=== PATIENT | female | born 1935 ===

== ENCOUNTER 2017-01-15 14:29 | Inpatient (IN) | payer MEDICAID, OTHER ==
--- NOTE | 2017-01-15 15:16 | C.PDOC ---
History Of Present Illness 81F c/o generalized weakness and pain in her whole body including chest for the last week. today she started feeling nauseated. subjective fever. no cough or dysuria or vomiting or diarrhea. took tylenol last this am 10am. notes she had endoscopy to "check for cancer" about 3-4 weeks ago. Time Seen by Provider: 01/15/17 15:07 Chief Complaint (Nursing): Weakness/Neurological Deficit Past Medical History Vital Signs: Last Vital Signs Temp 98.3 F 01/18/17 04:00 Pulse 111 H 01/18/17 04:00 Resp 20 01/18/17 04:00 BP 108/73 01/18/17 04:00 Pulse Ox 97 01/17/17 23:25 - Medical History PMH: Anemia, Arthritis, Cardia Arrhythmia, Gastritis, Osteoporosis Denies: Chronic Kidney Disease Family History: States: Other Other Family History: nc - Social History Hx Alcohol Use: No Hx Substance Use: No - Immunization History Hx Tetanus Toxoid Vaccination: No Hx Influenza Vaccination: No Hx Pneumococcal Vaccination: No Review Of Systems Except As Marked, All Systems Reviewed And Found Negative. Constitutional: Positive for: Fever, Weakness, Malaise Cardiovascular: Positive for: Chest Pain. Negative for: Edema Respiratory: Negative for: Cough, Shortness of Breath, Hemoptysis Gastrointestinal: Positive for: Nausea. Negative for: Vomiting, Abdominal Pain , Diarrhea Genitourinary: Negative for: Dysuria Neurological: Negative for: Weakness, Numbness, Headache Physical Exam - Physical Exam Appears: Non-toxic, No Acute Distress Skin: Warm, Dry Head: Atraumatic Eye(s): bilateral: PERRL Nose: No Epistaxis Oral Mucosa: Moist Neck: Supple Cardiovascular: Rhythm Regular Respiratory: No Decreased Breath Sounds, No Accessory Muscle Use, No Rales, No Rhonchi, No Wheezing Gastrointestinal/Abdominal: Soft, No Tenderness, No Distention, No Guarding, No Rebound Extremity: No Swelling Pulses: Left Radial: Normal, Right Radial: Normal Neurological/Psych: Oriented x3, Normal Motor, Normal Sensation, Other (no focal deficits) ED Course And Treatment - Laboratory Results Result Diagrams: 01/17/17 04:39 01/17/17 19:33 O2 Sat by Pulse Oximetry: 98 Disposition - Disposition Disposition: HOSPITALIZED Disposition Time: 18:06 Condition: STABLE - Clinical Impression Clinical Impression: Hyponatremia
[2017-01-15] MEDS ORDERED: Sodium Chloride 0.9% 1,000 ML IV ONE (15:30)
[2017-01-15 16:34] LABS: VENOUS BLOOD GAS BASE EXCESS -3.8 mmol/L (0.0-2.0); VENOUS BLOOD GAS PCO2 39 mmHg (40-60); VENOUS BLOOD PH 7.35 (7.32-7.43)
[2017-01-15 16:39] LABS: CHLORIDE 97 mmol/L (98-107)
[2017-01-15 16:40] LABS: POTASSIUM 4.9 mmol/L (3.6-5.2); SODIUM 125 mmol/L (132-148)
[2017-01-15 16:42] LABS: ALB/GLOB RATIO 0.5 (1.0-2.1); BILIRUBIN,TOTAL 0.5 mg/dL (0.2-1.3); CARBON DIOXIDE 18 mmol/L (22-30); GFR AFRICAN-AMERICAN > 60; TOTAL PROTEIN 7.7 g/dL (6.3-8.3)
[2017-01-15 16:43] LABS: ALKALINE PHOSPHATASE 79 U/L (38-126); ALT/SGPT 30 U/L (9-52); AST/SGOT 66 U/L (14-36); BLOOD UREA NITROGEN 19 mg/dL (7-17); GLUCOSE,RANDOM 74 mg/dL (65-105)
[2017-01-15 16:49] LABS: EOS # 0.1 K/uL (0.0-0.7); LYMPH # 0.8 K/uL (1.0-4.3); MEAN CORPUSCULAR HGB CONC 33.7 g/dL (33.0-37.0); RED CELL DISTRIBUTION WIDTH 17.4 % (11.5-14.5)
--- NOTE | 2017-01-15 16:54 | RAD ---
HISTORY: weak COMPARISON: No prior. TECHNIQUE: Chest PA and lateral FINDINGS: LUNGS: Reticular opacities more prominent at the lung bases and in the upper lobe lobes right more than left. Findings are nonspecific and the differential diagnosis includes interstitial lung disease sequela of prior infection or inflammatory process. PLEURA: No significant pleural effusion identified. No pneumothorax apparent. CARDIOVASCULAR: Normal. OSSEOUS STRUCTURES: No significant abnormalities. VISUALIZED UPPER ABDOMEN: Normal. OTHER FINDINGS: None. IMPRESSION: Nonspecific diffuse reticular opacities in the lungs more prominent at the lung bases and in the upper lobes right more than left. Mild hyperinflation of the lungs. Correlate clinically for COPD.
[2017-01-15 17:20] LABS: RBC URINE 62 /hpf (0-3); URINE BACTERIA RARE (<OCC); URINE BILIRUBIN NEGATIVE (NEGATIVE); URINE BLOOD 3+ (NEGATIVE); URINE COLOR Yellow (YELLOW); URINE GLUCOSE (UA) NORMAL (Normal); URINE KETONE NEGATIVE (NEGATIVE); URINE LEUKOCYTE ESTERASE NEG Leu/uL (Negative); URINE PROTEIN 1+ mg/dL (NEGATIVE); URINE UROBILINOGEN NORMAL mg/dL (0.2-1.0); WBC URINE 6 /hpf (0-5)
[2017-01-15 17:48] LABS: BASO % 0.6 % (0.0-2.0); EOS % 1.4 % (0.0-4.0); HEMATOCRIT 26.9 % (34.0-47.0); LYMPH % 20.6 % (20.0-40.0); MEAN CELL VOLUME 80.6 fL (81.0-99.0); MEAN CORPUSCULAR HEMOGLOBIN 27.2 pg (27.0-31.0); MEAN PLATELET VOLUME 8.1 fL (7.2-11.7); MONO # 0.4 K/uL (0.0-0.8); MONO % 11.3 % (0.0-10.0); NRBC % 1.3 % (0.0-2.0); PLATELET COUNT 118 K/uL (130-400); WHITE BLOOD COUNT 3.8 K/uL (4.8-10.8)
--- NOTE | 2017-01-15 23:00 | CP.PCM.HP ---
Addendum entered and electronically signed by Sylvain Mg 01/16/17 02:00: Assessment & Plan (1) Hyponatremia Assessment and Plan: Na on admission 125; likely hypotonic hyponatremia due to polydipsia vs renal losses vs siadh hypovolemic hyponatremia possible due to dry oral mucosa, eyes sunken, BP 97/60 , NC 106 euvolemic possible due to excessive water intake NS 1 L given in ED F/U serum and urine osmolality F/U urine sodium, urine potassium, urine chloride strict In's/Out's daily weight TSH wnl Status: Acute (2) Rheumatoid arthritis Assessment and Plan: con't home med tylenol 650mg po bid outpatient management Status: Acute (3) Anemia Assessment and Plan: Hgb 9.1 on admission, stable from previous admission; non-bleeding internal hemorrhoids found on colonoscopy on 12/26/16 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 Mild hyperinflation of the lungs. (5) Prophylactic measure Assessment and Plan: GI: protonix 40mg po daily DVT: heparin 5000u sc q8 Diet: regular diet con't home meds iron and B12 Status: Acute Original Note: <Sylvain Mg - Last Filed: 01/16/17 01:17> History of Present Illness - History of Present Illness History of Present Illness: 81 yo F with a PMHx of Rheumatoid Arthritis presented to the ED for fatigue and weakness for the past 1 week. At baseline the patient is able to ambulate however in the past week she has felt too weak to get out of bed and when she does, she feels imbalanced. Associated symptoms include nausea and dry mouth. She denies vomiting or diarrhea. She says she routinely drinks a lot of water and currently drinks 5 12oz cups of water every day. She weighs 86 lbs. At baseline she urinates about 8-9x a day which she attributes to her water intake. She denied all other prompts on review of systems. She says she has a good appetite but admits to a 6lb weight loss in the last 3 weeks. 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 absent: Chills, Fever , Frequent Falls, Headache - EENT Eyes: absent: Change in Vision Ears: absent: Ear Pain Nose/Mouth/Throat: absent: Nasal Congestion - Cardiovascular Cardiovascular: absent: Chest Pain, Diaphoresis, Palpitations - Respiratory Respiratory: absent: Cough, Dyspnea, Wheezing - Gastrointestinal Gastrointestinal: Constipation, Nausea. absent: Abdominal Pain, Diarrhea, Vomiting - Genitourinary Genitourinary: absent: Change in Urinary Stream, Difficulty Urinating, Dysuria, Flank Pain, Urinary Frequency - Neurological Neurological: absent: Numbness, Focal Weakness, Frequent Falls, Headaches, Syncope, Tingling - Endocrine Endocrine: Fatigue Past Patient History - Past Medical History & Family History Past Medical History?: Yes - Past Social History Smoking Status: Never Smoked - CARDIAC Hx Cardiac Disorders: Yes Hx Cardia Arrhythmia: Yes - PULMONARY Hx Respiratory Disorders: No - NEUROLOGICAL Hx Neurological Disorder: No Hx Syncope: Yes - HEENT Hx HEENT Problems: No - RENAL Hx Chronic Kidney Disease: No - ENDOCRINE/METABOLIC Hx Endocrine Disorders: No - HEMATOLOGICAL/ONCOLOGICAL Hx Anemia: Yes - INTEGUMENTARY Hx Dermatological Problems: No - MUSCULOSKELETAL/RHEUMATOLOGICAL Hx Arthritis: Yes Hx Falls: Yes Hx Osteoporosis: Yes - GASTROINTESTINAL Hx Gastrointestinal Disorders: Yes Hx Gastritis: Yes - GENITOURINARY/GYNECOLOGICAL Hx Genitourinary Disorders: No - PSYCHIATRIC Hx Psychophysiologic Disorder: No Hx Substance Use: No - SURGICAL HISTORY Hx Surgeries: Yes Other/Comment: EXC. LESION OF TOUGUE - ANESTHESIA Hx Anesthesia: Yes Hx Anesthesia Reactions: No Hx Malignant Hyperthermia: No Has any member of the family had a problem w/ anesthesia?: No Meds Allergies/Adverse Reactions: Allergies Allergy/AdvReac Type Severity Reaction Status Date / Time pineapple Allergy ITCHING Verified 01/15/17 14:38 shrimp Allergy ITCHING Verified 01/15/17 14:38 Physical Exam - Constitutional Appears: Well, Non-toxic, No Acute Distress Additional comments: lethargic - Head Exam Head Exam: ATRAUMATIC, NORMAL INSPECTION - Eye Exam Eye Exam: EOMI Pupil Exam: PERRL Additional comments: eyes were sunken - ENT Exam ENT Exam: Mucous Membranes Dry. absent: Mucous Membranes Moist - Neck Exam Neck exam: Positive for: Normal Inspection. Negative for: Lymphadenopathy - Respiratory Exam Respiratory Exam: Rales, Wheezes, NORMAL BREATHING PATTERN - Cardiovascular Exam Cardiovascular Exam: REGULAR RHYTHM, RRR, +S1, +S2. absent: Bradycardia, Tachycardia, Irregular Rhythm, Systolic Murmur - GI/Abdominal Exam GI & Abdominal Exam: Normal Bowel Sounds, Soft. absent: Distended, Firm, Organomegaly, Rebound, Tenderness - Rectal Exam Rectal Exam: Deferred - Extremities Exam Extremities exam: Positive for: normal inspection. Negative for: pedal edema, tenderness - Neurological Exam Neurological exam: Alert, CN II-XII Intact, Oriented x3 - Psychiatric Exam Psychiatric exam: Normal Affect, Normal Mood - Skin Additional comments: skin turgor slow capillary refill 2-4 seconds warm extremities Results - Vital Signs Recent Vital Signs: Last Vital Signs Temp 98.2 F 01/15/17 20:58 Pulse 98 H 01/15/17 20:58 Resp 20 01/15/17 20:58 BP 115/65 01/15/17 20:58 Pulse Ox 92 L 01/15/17 20:58 - Labs Result Diagrams: 01/15/17 16:24 01/15/17 16:24 Labs: Laboratory Results - last 24 hr 01/15/17 01/15/17 01/15/17 16:24 16:24 16:31 WBC 3.8 L RBC 3.33 L Hgb 9.1 L Hct 26.9 L MCV 80.6 L MCH 27.2 MCHC 33.7 RDW 17.4 H Plt Count 118 L MPV 8.1 Neut % (Auto) 66.1 Lymph % (Auto) 20.6 [place] % (Auto) 11.3 H Eos % (Auto) 1.4 Baso % (Auto) 0.6 Neut # 2.5 Lymph # 0.8 L [place] # 0.4 Eos # 0.1 Baso # 0.0 pO2 25 L VBG pH 7.35 VBG pCO2 39 L VBG HCO3 20.4 VBG Total CO2 22.7 VBG O2 Sat (Calc) 44.7 VBG Base Excess -3.8 L VBG Potassium 4.7 Glucose 74 Lactate 1.5 Sodium 125 L 126.0 L Potassium 4.9 Chloride 97 L 100.0 Carbon Dioxide 18 L Anion Gap 15 BUN 19 H Creatinine 0.6 L Est GFR ( Amer) > 60 Est GFR (Non-Af Amer) > 60 Random Glucose 74 Calcium 8.0 L Total Bilirubin 0.5 AST 66 H ALT 30 Alkaline Phosphatase 79 Troponin I < 0.0120 Total Protein 7.7 Albumin 2.5 L Globulin 5.2 H Albumin/Globulin Ratio 0.5 L Lipase 272 TSH 3rd Generation Venous Blood Potassium 4.7 Urine Color Urine Clarity Urine pH Ur Specific [place] Urine Protein Urine Glucose (UA) Urine Ketones Urine Blood Urine Nitrate Urine Bilirubin Urine Urobilinogen Ur Leukocyte Esterase Urine WBC (Auto) Urine RBC (Auto) Ur Squamous Epith Cells Urine Bacteria Hyaline Casts Influenza Typ A,B (EIA) 01/15/17 01/15/17 01/15/17 16:48 16:55 19:00 WBC RBC Hgb Hct MCV MCH MCHC RDW Plt Count MPV Neut % (Auto) Lymph % (Auto) [place] % (Auto) Eos % (Auto) Baso % (Auto) Neut # Lymph # [place] # Eos # Baso # pO2 VBG pH VBG pCO2 VBG HCO3 VBG Total CO2 VBG O2 Sat (Calc) VBG Base Excess VBG Potassium Glucose Lactate Sodium Potassium Chloride Carbon Dioxide Anion Gap BUN Creatinine Est GFR ( Amer) Est GFR (Non-Af Amer) Random Glucose Calcium Total Bilirubin AST ALT Alkaline Phosphatase Troponin I Total Protein Albumin Globulin Albumin/Globulin Ratio Lipase TSH 3rd Generation 2.60 Venous Blood Potassium Urine Color Yellow Urine Clarity Clear Urine pH 5.0 Ur Specific [place] 1.025 Urine Protein 1+ H Urine Glucose (UA) Normal Urine Ketones Negative Urine Blood 3+ H Urine Nitrate Negative Urine Bilirubin Negative Urine Urobilinogen Normal Ur Leukocyte Esterase Neg Urine WBC (Auto) 6 H Urine RBC (Auto) 62 H Ur Squamous Epith Cells < 1 Urine Bacteria Rare Hyaline Casts 6-10 H Influenza Typ A,B (EIA) Negative for flu a/b Assessment & Plan (1) Hyponatremia Assessment and Plan: Na on admission 125; likely hypotonic hyponatremia due to polydipsia vs renal losses vs siadh hypovolemic hyponatremia possible due to dry oral mucosa, eyes sunken, BP 97/60 , NC 106 euvolemic possible due to excessive water intake F/U serum and urine osmolality F/U urine sodium, urine potassium, urine chloride strict In's/Out's daily weight TSH wnl Status: Acute (2) Rheumatoid arthritis Assessment and Plan: con't home med tylenol 650mg po bid outpatient management Status: Acute (3) Anemia Assessment and Plan: Hgb 9.1 on admission, stable from previous admission; non-bleeding internal hemorrhoids found on colonoscopy on 12/26/16 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 F/U iron studies F/U folate, B12 verify home iron med dose and frequency Status: Acute (4) Prophylactic measure Assessment and Plan: GI: protonix 40mg po daily DVT: heparin 5000u sc q8 Diet: regular diet con't home meds iron and B12 Status: Acute <Diego Kirkland - Last Filed: 01/16/17 06:32> Results - Vital Signs Recent Vital Signs: Last Vital Signs Temp 97.6 F 01/15/17 23:20 Pulse 78 01/15/17 23:20 Resp 20 01/15/17 23:20 BP 129/78 01/15/17 23:20 Pulse Ox 99 01/15/17 23:20 - Labs Result Diagrams: 01/15/17 16:24 01/15/17 16:24 Labs: Laboratory Results - last 24 hr 01/15/17 01/15/17 01/15/17 16:24 16:24 16:31 WBC 3.8 L RBC 3.33 L Hgb 9.1 L Hct 26.9 L MCV 80.6 L MCH 27.2 MCHC 33.7 RDW 17.4 H Plt Count 118 L MPV 8.1 Neut % (Auto) 66.1 Lymph % (Auto) 20.6 [place] % (Auto) 11.3 H Eos % (Auto) 1.4 Baso % (Auto) 0.6 Neut # 2.5 Lymph # 0.8 L [place] # 0.4 Eos # 0.1 Baso # 0.0 Neutrophils % (Manual) 70 Lymphocytes % (Manual) 20 Monocytes % (Manual) 8 Eosinophils % (Manual) 2 Smudge Cells Present Platelet Estimate Decreased L Large Platelets Present Polychromasia Slight Poikilocytosis (manual Slight Anisocytosis (manual) Slight Macrocytosis (manual) Slight pO2 25 L VBG pH 7.35 VBG pCO2 39 L VBG HCO3 20.4 VBG Total CO2 22.7 VBG O2 Sat (Calc) 44.7 VBG Base Excess -3.8 L VBG Potassium 4.7 Glucose 74 Lactate 1.5 Sodium 125 L 126.0 L Potassium 4.9 Chloride 97 L 100.0 Carbon Dioxide 18 L Anion Gap 15 BUN 19 H Creatinine 0.6 L Est GFR ( Amer) > 60 Est GFR (Non-Af Amer) > 60 Random Glucose 74 Calcium 8.0 L Total Bilirubin 0.5 AST 66 H ALT 30 Alkaline Phosphatase 79 Troponin I < 0.0120 Total Protein 7.7 Albumin 2.5 L Globulin 5.2 H Albumin/Globulin Ratio 0.5 L Lipase 272 TSH 3rd Generation Venous Blood Potassium 4.7 Urine Color Urine Clarity Urine pH Ur Specific [place] Urine Protein Urine Glucose (UA) Urine Ketones Urine Blood Urine Nitrate Urine Bilirubin Urine Urobilinogen Ur Leukocyte Esterase Urine WBC (Auto) Urine RBC (Auto) Ur Squamous Epith Cells Urine Bacteria Hyaline Casts Urine Osmolality Ur Random Sodium Influenza Typ A,B (EIA) 01/15/17 01/15/17 01/15/17 16:48 16:55 17:46 WBC RBC Hgb Hct MCV MCH MCHC RDW Plt Count MPV Neut % (Auto) Lymph % (Auto) [place] % (Auto) Eos % (Auto) Baso % (Auto) Neut # Lymph # [place] # Eos # Baso # Neutrophils % (Manual) Lymphocytes % (Manual) Monocytes % (Manual) Eosinophils % (Manual) Smudge Cells Platelet Estimate Large Platelets Polychromasia Poikilocytosis (manual Anisocytosis (manual) Macrocytosis (manual) pO2 VBG pH VBG pCO2 VBG HCO3 VBG Total CO2 VBG O2 Sat (Calc) VBG Base Excess VBG Potassium Glucose Lactate Sodium Potassium Chloride Carbon Dioxide Anion Gap BUN Creatinine Est GFR ( Amer) Est GFR (Non-Af Amer) Random Glucose Calcium Total Bilirubin AST ALT Alkaline Phosphatase Troponin I Total Protein Albumin Globulin Albumin/Globulin Ratio Lipase TSH 3rd Generation Venous Blood Potassium Urine Color Yellow Urine Clarity Clear Urine pH 5.0 Ur Specific [place] 1.025 Urine Protein 1+ H Urine Glucose (UA) Normal Urine Ketones Negative Urine Blood 3+ H Urine Nitrate Negative Urine Bilirubin Negative Urine Urobilinogen Normal Ur Leukocyte Esterase Neg Urine WBC (Auto) 6 H Urine RBC (Auto) 62 H Ur Squamous Epith Cells < 1 Urine Bacteria Rare Hyaline Casts 6-10 H Urine Osmolality 288 L Ur Random Sodium 76 Influenza Typ A,B (EIA) Negative for flu a/b 01/15/17 19:00 WBC RBC Hgb Hct MCV MCH MCHC RDW Plt Count MPV Neut % (Auto) Lymph % (Auto) [place] % (Auto) Eos % (Auto) Baso % (Auto) Neut # Lymph # [place] # Eos # Baso # Neutrophils % (Manual) Lymphocytes % (Manual) Monocytes % (Manual) Eosinophils % (Manual) Smudge Cells Platelet Estimate Large Platelets Polychromasia Poikilocytosis (manual Anisocytosis (manual) Macrocytosis (manual) pO2 VBG pH VBG pCO2 VBG HCO3 VBG Total CO2 VBG O2 Sat (Calc) VBG Base Excess VBG Potassium Glucose Lactate Sodium Potassium Chloride Carbon Dioxide Anion Gap BUN Creatinine Est GFR ( Amer) Est GFR (Non-Af Amer) Random Glucose Calcium Total Bilirubin AST ALT Alkaline Phosphatase Troponin I Total Protein Albumin Globulin Albumin/Globulin Ratio Lipase TSH 3rd Generation 2.60 Venous Blood Potassium Urine Color Urine Clarity Urine pH Ur Specific [place] Urine Protein Urine Glucose (UA) Urine Ketones Urine Blood Urine Nitrate Urine Bilirubin Urine Urobilinogen Ur Leukocyte Esterase Urine WBC (Auto) Urine RBC (Auto) Ur Squamous Epith Cells Urine Bacteria Hyaline Casts Urine Osmolality Ur Random Sodium Influenza Typ A,B (EIA) Assessment & Plan - Date & Time Date: 01/16/17 (I have seen and examined the patient. I agree with the findings and plan of care as documented by Dr. Mg. Patient with hyponatremia. Check urine osmolalities and electrolytes. May need to restrict or give fluids depending on results. Also with history of rheumatoid arthritis. Symptomatic treatment. For anemia, check iron studies, B12, and folate. Similar to prior admission. Monitor for acute changes.) Time: 06:30 Attending/Attestation - Attestation I have personally seen and examined this patient.: Yes I have fully participated in the care of the patient.: Yes I have reviewed all pertinent clinical information: Yes
[2017-01-15 23:09] LABS: EOSINOPHIL 2 % (0-4); NEUTROPHIL 70 % (50-75); TOTAL CELLS COUNTED 100
[2017-01-15 23:10] LABS: LARGE PLATELETS PRESENT; SMUDGE CELLS PRESENT
[2017-01-16 07:34] LABS: IRON 35 ug/dL (37-170)
[2017-01-16 07:55] LABS: URIC ACID 3.8 mg/dL (2.2-7.5)
[2017-01-16 08:03] LABS: CORTISOL AM 12.8 ug/dL (4.46-22.7)
[2017-01-16 08:39] LABS: FOLATE 7.3 ng/mL
[2017-01-16] MEDS ORDERED: ACETAMINOPHEN PO SCH (10:00)
[2017-01-16] MEDS ORDERED: Pantoprazole 40 mg EC Tab PO SCH (10:00)
[2017-01-16 10:38] LABS: CHLORIDE 99 mmol/L (98-107); POTASSIUM 4.4 mmol/L (3.6-5.2); SODIUM 127 mmol/L (132-148)
[2017-01-16 10:40] LABS: AST/SGOT 69 U/L (14-36); BILIRUBIN,TOTAL 0.4 mg/dL (0.2-1.3); CARBON DIOXIDE 18 mmol/L (22-30); GFR AFRICAN-AMERICAN > 60; TOTAL PROTEIN 8.1 g/dL (6.3-8.3)
[2017-01-16 10:41] LABS: ALKALINE PHOSPHATASE 81 U/L (38-126); ALT/SGPT 25 U/L (9-52); BLOOD UREA NITROGEN 15 mg/dL (7-17); CALCIUM 7.9 mg/dl (8.6-10.4); GLUCOSE,RANDOM 74 mg/dL (65-105)
[2017-01-16 10:44] LABS: ALB/GLOB RATIO 0.4 (1.0-2.1)
[2017-01-16 12:15] LABS: BASO % 0.2 % (0.0-2.0); EOS % 0.8 % (0.0-4.0); HEMATOCRIT 26.3 % (34.0-47.0); LYMPH # 0.5 K/uL (1.0-4.3); LYMPH % 15.1 % (20.0-40.0); MEAN CELL VOLUME 79.8 fL (81.0-99.0); MEAN CORPUSCULAR HEMOGLOBIN 27.4 pg (27.0-31.0); MEAN CORPUSCULAR HGB CONC 34.3 g/dL (33.0-37.0); MEAN PLATELET VOLUME 7.8 fL (7.2-11.7); MONO # 0.3 K/uL (0.0-0.8); MONO % 9.3 % (0.0-10.0); NRBC % 0.2 % (0.0-2.0); RED CELL DISTRIBUTION WIDTH 17.1 % (11.5-14.5); WHITE BLOOD COUNT 3.6 K/uL (4.8-10.8)
[2017-01-16 12:29] LABS: CHLORIDE 98 mmol/L (98-107); SODIUM 125 mmol/L (132-148)
[2017-01-16 12:30] LABS: POTASSIUM 4.2 mmol/L (3.6-5.2)
[2017-01-16 12:32] LABS: ALB/GLOB RATIO 0.4 (1.0-2.1); ALKALINE PHOSPHATASE 70 U/L (38-126); ALT/SGPT 29 U/L (9-52); AST/SGOT 60 U/L (14-36); BILIRUBIN,TOTAL 0.3 mg/dL (0.2-1.3); BLOOD UREA NITROGEN 14 mg/dL (7-17); CALCIUM 7.8 mg/dl (8.6-10.4); CARBON DIOXIDE 20 mmol/L (22-30); GFR AFRICAN-AMERICAN > 60; GLUCOSE,RANDOM 92 mg/dL (65-105); TOTAL PROTEIN 7.4 g/dL (6.3-8.3)
--- NOTE | 2017-01-16 12:57 | CT ---
PROCEDURE: CT scan of the brain dated 01/16/2017 HISTORY: SIADH r/o COMPARISON: No prior study available for comparison TECHNIQUE: Axial computed tomography images were obtained through the head/brain without intravenous contrast. Radiation dose: Total exam DLP = 982.82 mGy-cm. This CT exam was performed using one or more of the following dose reduction techniques: Automated exposure control, adjustment of the mA and/or kV according to patient size, and/or use of iterative reconstruction technique. FINDINGS: HEMORRHAGE: No acute parenchymal, subarachnoid or extra-axial hemorrhage. BRAIN: Mild chronic periventricular white matter ischemic changes extend peripherally into the deep and subcortical regions bilaterally. There also appears to be some extension of these changes into the white matter tracts of both basal nuclei. Few scattered more discrete bilateral chronic appearing basal nuclei lacunar type infarcts also felt be present. Moderate generalized volume loss Mild vascular calcifications are present. Partially empty sella. VENTRICLES: No obstructive hydrocephalus. CALVARIUM: There are no acute calvarial fracture seen. PARANASAL SINUSES: Unremarkable as visualized. No significant inflammatory changes. MASTOID AIR CELLS: Unremarkable as visualized. No inflammatory changes. OTHER FINDINGS: None. IMPRESSION: No acute intracranial hemorrhage. Mild chronic white matter and basal nuclei ischemic changes. Moderate generalized volume loss partially empty sella.
--- NOTE | 2017-01-16 12:58 | CT ---
PROCEDURE: CT chest dated 01/16/2017 HISTORY: SIADH. COMPARISON: Comparison made with chest radiograph 01/15/2017. TECHNIQUE: Contiguous helical/transaxial images were obtained through the chest without intravenous contrast enhancement. Sagittal and coronal reconstructions were performed. Radiation dose (DLP): 231.84 mGy-cm. This CT exam was performed using one or more of the following dose reduction techniques: Automated exposure control, adjustment of the mA and/or kV according to patient size, and/or use of iterative reconstruction technique. . FINDINGS: LUNGS: Diffuse centrilobular emphysematous changes are present. In addition, extensive interstitial fibrosis also present with more confluent in the lower lobes ;. Superimposed infiltrates to be excluded with clinical correlation. . There also appear to be mild bilateral lower lobe cylindrical type bronchiectasis and scarring. Multiple lower lobe pneumatoceles and small to medium-sized bleb changes in the lower lung johnson. . Biapical pleural thickening and adjacent parenchymal chronic atelectasis/ scarring changes also felt be present. . There also areas of focal pleural thickening and adjacent parenchymal scarring changes. MEDIASTINUM: Heart size is within range of normal. No significant pericardial effusion. The ascending thoracic aorta measures approximately 3.15 cm and descending thoracic aorta measures approximately 2.2 cm. Pulmonary trunk measures approximately 2.78 cm. There are multiple name small nonspecific mediastinal lymph nodes. Evaluation for hilar adenopathy is somewhat limited due to the lack of circulating intravenous contrast material. Small hiatal hernia. Slight wall thickening of the distal esophagus likely due to protrusion gastric mucosa. PLEURA: No evidence of pneumothorax or significant pleural effusion BONES: Chronic appearing anterior wedge compression fractures of the T5 and T7 segments again noted minor buckling/bowing of the posterior cortical margins of each of these segments noted however no significant canal compromise. The remaining vertebral bodies otherwise exhibit normal stature. . There is slight increase kyphosis due to these compression fractures however vertebral bodies and facets otherwise normally aligned. UPPER ABDOMEN: Grossly unremarkable. OTHER FINDINGS: None. IMPRESSION: Underlying emphysema with extensive the interstitial fibrosis with more confluent opacities in the lower lung johnson. Rule out underlying infiltrates. Additionally, there appear to be bilateral lower lobe cylindrical type bronchiectatic changes. Multiple lower lobe pneumatoceles and small on to medium-sized bleb changes are present. Biapical and bibasilar pleural thickening with adjacent parenchymal scarring. Chronic anterior wedge compression deformities of the T5 and T6 segments unchanged.
--- NOTE | 2017-01-16 14:14 | CARD ---
APPROVED REPORT EKG Measurement Heart [id number] <Conclusion> Normal sinus rhythm Normal ECG
--- NOTE | 2017-01-16 15:22 | CP.PCM.PN ---
<Ivelisse Mcgee - Last Filed: 01/16/17 16:08> Subjective - Date & Time of Evaluation Date of Evaluation: 01/16/17 Time of Evaluation: 15:21 - Subjective Subjective: Internal Medicine progress note for Dr. Sigala Patient seen and examined at bedside. Patient has no complaints overnight. Patient states she has dry mouth for 8 years, dry eyes and nose. Patient states her family doctor Dr. Dejesus in [place] told her to drink more water. Patient states she goes to the bathroom a lot. Patient states she understands she's under fluid restrictions and that we are checking her labs for her sodium. Patient denies Fever. Patient admits to cough, nausea. Patient denies diarrhea. Patient states she has never smoked in her life and that she does not have a family history of cancer. Patient states her eyes are itchy, daughter states patient doesn't leave home due to pain from arthritis. Patient does not move her arms above her head very often due to difficulty movement her limbs Objective - Vital Signs/Intake and Output Vital Signs (last 24 hours): Temp Pulse Resp BP Pulse Ox 98.6 F 112 H 20 111/67 98 01/16/17 07:00 01/16/17 07:00 01/16/17 07:00 01/16/17 07:00 01/16/17 07:00 - Medications Medications: Current Medications Cyanocobalamin (Vitamin B12 100 Mcg Tab) 500 mcg PO DAILY [facility] Last Admin: 01/16/17 10:15 Dose: 500 mcg Ibuprofen (Motrin Tab) 400 mg PO Q8H PRN PRN Reason: Pain, moderate (4-7) Pantoprazole Sodium (Protonix Ec Tab) 40 mg PO DAILY [facility] Last Admin: 01/16/17 10:15 Dose: 40 mg Pneumococcal Polyvalent Vaccine (Pneumovax 23 Vaccine) 0.5 ml IM .ONCE ONE Stop: 01/17/17 10:01 - Labs Labs: 01/16/17 11:47 01/16/17 11:47 - Constitutional Appears: Non-toxic - Head Exam Head Exam: NORMAL INSPECTION - Eye Exam Eye Exam: EOMI Additional comments: periorbital itching heliotrope like rash noted on physical exam - ENT Exam ENT Exam: Mucous Membranes Moist - Neck Exam Neck Exam: Full ROM. absent: Tenderness - Respiratory Exam Respiratory Exam: Clear to Ausculation Bilateral, NORMAL BREATHING PATTERN. absent: Accessory Muscle Use, Respiratory Distress - Cardiovascular Exam Cardiovascular Exam: REGULAR RHYTHM. absent: Bradycardia, Tachycardia - GI/Abdominal Exam GI & Abdominal Exam: Soft. absent: Tenderness - Exam Exam: NORMAL INSPECTION - Extremities Exam Extremities Exam: Full ROM. absent: Pedal Edema Additional comments: splitting nails onychomycosis - Back Exam Back Exam: NORMAL INSPECTION - Neurological Exam Neurological Exam: Alert, Awake, Normal Gait - Psychiatric Exam Psychiatric exam: Normal Affect, Normal Mood - Skin Skin Exam: Dry, Intact, Normal Color, Warm Additional comments: Lentigo senilis on dorsum of hands Assessment and Plan - Assessment and Plan (Free Text) Assessment: Assessment & Plan (1) Hyponatremia Assessment and Plan: Na on admission 125; likely hypotonic hyponatremia due to polydipsia vs renal losses vs siadh hypovolemic hyponatremia possible due to dry oral mucosa, dry skin turgor euvolemic possible due to excessive water intake NS 1 L given in ED Serum Osm 275 Urine Osm 258 Urine Na 76 Strict I/Os Daily weights TSH WNL f/u BUN/Cr Monitor CMP Status: Acute (2) Rheumatoid arthritis Assessment and Plan: con't home med tylenol 650mg po bid outpatient management Status: Acute (3) Anemia Assessment and Plan: Hgb 9.1 on admission, stable from previous admission; non-bleeding internal hemorrhoids found on colonoscopy on 12/26/16 sees outpatient insole lip turner F/U iron studies F/U folate, B12 verify home iron med dose and frequency Status: Acute (4) Reticular Opacities in Lungs Assessment and Plan: bibasalar rales and wheezing on ausc; denies dyspnea; breathing comfortably on room air; no hx of smoking CXR: non-specific diffuse reticular opacities in the lungs more prominent at the lung bases and in upper lobes R>L. Mild hyperinflation of the lungs. (5) Prophylactic measure Assessment and Plan: GI: protonix 40mg po daily DVT: heparin 5000u sc Q8H, On hold due to pancytopenia. 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 chronic white matter and basal nuclei ischemic changes. generalized volume loss partially empty sella 01/16 CT Chest: interstitial fibrosis. Sjogrens/Auto-immune workup/dermatomyositis patient has heliotrope rash CRP >15.00 ESR 120 SHERRIE <Zandra Sigala V - Last Filed: 01/16/17 23:24> Objective - Vital Signs/Intake and Output Vital Signs (last 24 hours): Temp Pulse Resp BP Pulse Ox 99.5 F 115 H 18 130/80 95 01/16/17 18:11 01/16/17 18:11 01/16/17 18:11 01/16/17 18:11 01/16/17 18:11 Intake and Output: 01/16/17 01/17/17 18:59 06:59 Intake Total 150 Output Total 250 Balance -100 - Medications Medications: Current Medications Acetaminophen (Tylenol 325mg Tab) 650 mg PO Q6 PRN PRN Reason: Pain, Mild (1-3) Ibuprofen (Motrin Tab) 400 mg PO Q8H PRN PRN Reason: Pain, moderate (4-7) Pantoprazole Sodium (Protonix Ec Tab) 40 mg PO DAILY [facility] Last Admin: 01/16/17 10:15 Dose: 40 mg Pneumococcal Polyvalent Vaccine (Pneumovax 23 Vaccine) 0.5 ml IM .ONCE ONE Stop: 01/17/17 10:01 - Labs Labs: 01/16/17 11:47 01/16/17 20:00 Attending/Attestation - Attestation I have personally seen and examined this patient.: Yes I have fully participated in the care of the patient.: Yes I have reviewed all pertinent clinical information, including history, physical exam and plan: Yes Notes (Text): Patient seen, evaluated and case discussed with day-time resident. Patient has hyponatremia, unclear of hydration status. Attempted to fluid restrict patient for possible SIADH but sodium did not improve. Start NS 75 cc/ hr at low rate in the evening, f/u BMP with urine osmolarity and urine sodium. Ordered for CT Chest given reticular opacities. Heme onc consult for pancytopenia. Patient has history of iron deficiency was on iron tabs outpatient, report anemia workup in AM. Nephrology consult for hyponatremia Assessment/Plan (1) Hyponatremia Assessment and Plan: * Nephrology (Dr. Bee) on board-->f/u recommendations * Na on admission 125; Low osmolarity: 275 Urine osmolality: 288, Urine sodium: 76-->hypovolemic hyponatremia * Clinically appears dry; however reporting she has been drinking alot of water * 01/16 CT Head: No acute intracranial hemorrhage. chronic white matter and basal nuclei ischemic changes. generalized volume loss partially empty sella * Patient was fluid restricted patient given her drinking excessive picture--> but patient's values do not reflect SIADH/primary polydipsia-->will start NS 75cc/hr at 11pm * F/u BMP with urine osmolarity and urine sodium Q4H * Insert bloom; monitor intake and out Status: Acute (2) Rheumatoid arthritis Assessment and Plan: * con't home med tylenol 650mg PO Q 6H PRN pain * Motrin 400mg PO Q 8hr PRN pain moderate Status: Acute (3) Pancytopenia History of Iron Deficiency Anemia Thrombocytopenia Assessment and Plan: * Patient has had GI workup with Dr. Calero/Dr. Peña group * Colonoscopy (12/25/16): non-bleeding internal hemorrhoids * Endoscopy (12/25/16): normal esophagus. Gastritis-->bx chronic gastritis * Hgb 9.1 since November 2016 * Heme-onc: Dr Anastasiya Cmaejo-->help appreciated * Patient's outpatient insole lip turner * Order for iron studies, reti count, ferritin, B12 and folate * D/c Heparin * HIT antibodies ordered * Serotonin release assay ordered Status: Chronic (4) Reticular Opacities in Lungs Assessment and Plan: * bibasalar rales and wheezing on ausc; denies dyspnea; breathing comfortably on room air; no hx of smoking * CXR: non-specific diffuse reticular opacities in the lungs more prominent at the lung bases and in upper lobes R>L. Mild hyperinflation of the lungs. * CT Chest w/o contrast (01/16): underlying emphysema with extensive the interstitial fibrosis with more confluent opacities in the lower lung johnson. R/ o infiltrates. B/l lower love cylindrical type bronchiectat changes. Multiplelower love pneumatoceles and smal to medium size bled changes. 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 * Diet: regular diet * con't home meds iron and d/c B12 * PT: Subacute rehab * OT: pending evaluation Status: Acute
[2017-01-16 20:04] LABS: CHLORIDE 95 mmol/L (98-107); POTASSIUM 4.2 mmol/L (3.6-5.2); SODIUM 124 mmol/L (132-148)
[2017-01-16 20:07] LABS: BLOOD UREA NITROGEN 13 mg/dL (7-17); CALCIUM 7.6 mg/dl (8.6-10.4); CARBON DIOXIDE 20 mmol/L (22-30); GFR AFRICAN-AMERICAN > 60; GLUCOSE,RANDOM 94 mg/dL (65-105)
[2017-01-16 21:12] LABS: RBC URINE 6 /hpf (0-3); URINE BILIRUBIN NEGATIVE (NEGATIVE); URINE BLOOD 1+ (NEGATIVE); URINE COLOR STRAW (YELLOW); URINE GLUCOSE (UA) NEGATIVE (Normal); URINE KETONE NEGATIVE (NEGATIVE); URINE LEUKOCYTE ESTERASE NEGATIVE Leu/uL (Negative); URINE PROTEIN TRACE mg/dL (NEGATIVE); URINE UROBILINOGEN 0.2 mg/dL (0.2-1.0)
[2017-01-16 21:13] LABS: URINE BACTERIA OCC (<OCC); WBC URINE 3 /hpf (0-5)
--- NOTE | 2017-01-16 23:24 | CP.PCM.CON ---
History of Present Illness - History of Present Illness History of Present Illness: 81 yo F w/ pmh of RA, presented with fatigue and decreased ability to ambulate over past 1 week, found to be hyponatremic, nephrology being consulted for the same; Patient reports decreased PO intake at baseline; however, over past week, reports nausea but no vomiting; denies any diarrhea; also reporting dry mouth and eyes since this period; reports difficulty with ambulation with feeling of imbalance but without falls; Patient reports shortness of breath lately; denies any cough; denies chest pain ; Patient reports diffuse body pains over past 5 months; only pain med is Tylenol (denies NSAID use when named); Review of Systems - Constitutional Constitutional: As Per HPI, Weight Loss - EENT Eyes: absent: Change in Vision - Cardiovascular Cardiovascular: Leg Edema. absent: Chest Pain - Respiratory Respiratory: Dyspnea - Gastrointestinal Gastrointestinal: As Per HPI - Genitourinary Genitourinary: absent: Difficulty Urinating, Dysuria - Musculoskeletal Musculoskeletal: As Per HPI - Integumentary Integumentary: Pruritus. absent: Rash - Neurological Neurological: Abnormal Gait Past Patient History - Past Medical History & Family History Past Medical History?: Yes Pertinent Family History: denies any family medical history; - Past Social History Smoking Status: Never Smoked - CARDIAC Hx Cardiac Disorders: Yes (cardiac arrhythmia) - PULMONARY Hx Respiratory Disorders: No - NEUROLOGICAL Hx Neurological Disorder: No Hx Syncope: Yes - HEENT Hx HEENT Problems: No - RENAL Hx Chronic Kidney Disease: No - ENDOCRINE/METABOLIC Hx Endocrine Disorders: No - HEMATOLOGICAL/ONCOLOGICAL Hx Anemia: Yes - INTEGUMENTARY Hx Dermatological Problems: No - MUSCULOSKELETAL/RHEUMATOLOGICAL Hx Arthritis: Yes - GASTROINTESTINAL Hx Gastrointestinal Disorders: Yes Hx Gastritis: Yes - GENITOURINARY/GYNECOLOGICAL Hx Genitourinary Disorders: No - PSYCHIATRIC Hx Psychophysiologic Disorder: No Hx Substance Use: No - SURGICAL HISTORY Hx Surgeries: Yes Other/Comment: EXC. LESION OF TOUGUE - ANESTHESIA Hx Anesthesia: Yes Hx Anesthesia Reactions: No Hx Malignant Hyperthermia: No Has any member of the family had a problem w/ anesthesia?: No Meds Allergies/Adverse Reactions: Allergies Allergy/AdvReac Type Severity Reaction Status Date / Time pineapple Allergy ITCHING Verified 01/15/17 14:38 shrimp Allergy ITCHING Verified 01/15/17 14:38 - Medications Medications: Current Medications Acetaminophen (Tylenol 325mg Tab) 650 mg PO Q6 PRN PRN Reason: Pain, Mild (1-3) Famotidine (Pepcid) 20 mg PO BID [facility] Sodium Chloride (Sodium Chloride 0.9%) 1,000 mls @ 75 mls/hr IV .[id number] [facility] Pneumococcal Polyvalent Vaccine (Pneumovax 23 Vaccine) 0.5 ml IM .ONCE ONE Stop: 01/17/17 10:01 Physical Exam - Constitutional Appears: Non-toxic, No Acute Distress - Head Exam Head Exam: NORMAL INSPECTION - Eye Exam Eye Exam: Normal appearance. absent: Scleral icterus - ENT Exam ENT Exam: Mucous Membranes Moist - Neck Exam Neck exam: Positive for: Normal Inspection. Negative for: Lymphadenopathy - Respiratory Exam Respiratory Exam: absent: Respiratory Distress Additional comments: mild fine rales bilaterally; - Cardiovascular Exam Cardiovascular Exam: Tachycardia, +S1, +S2. absent: Gallop, Systolic Murmur - GI/Abdominal Exam GI & Abdominal Exam: Soft. absent: Distended, Tenderness - Exam Exam: absent: Bladder Distension - Extremities Exam Extremities exam: Positive for: normal capillary refill, pedal pulses present. Negative for: pedal edema - Neurological Exam Neurological exam: Alert Additional comments: no numbness of feet; - Psychiatric Exam Psychiatric exam: Normal Affect, Normal Mood - Skin Skin Exam: Normal Color, Warm Results - Vital Signs Recent Vital Signs: Last Vital Signs Temp 99.5 F 01/16/17 18:11 Pulse 115 H 01/16/17 18:11 Resp 18 01/16/17 18:11 BP 130/80 01/16/17 18:11 Pulse Ox 95 01/16/17 18:11 - Labs Result Diagrams: 01/16/17 11:47 01/16/17 20:00 Labs: Laboratory Results - last 24 hr 01/15/17 01/16/17 01/16/17 17:46 06:53 06:53 WBC RBC Hgb Hct MCV MCH MCHC RDW Plt Count MPV Neut % (Auto) Lymph % (Auto) [place] % (Auto) Eos % (Auto) Baso % (Auto) Neut # Lymph # [place] # Eos # Baso # ESR Sodium Potassium Chloride Carbon Dioxide Anion Gap BUN Creatinine Est GFR ( Amer) Est GFR (Non-Af Amer) Random Glucose Serum Osmolality 275 Uric Acid Calcium Iron 35 L TIBC 204 L % Saturation 17 L Ferritin Total Bilirubin AST ALT Alkaline Phosphatase C-React Prot High Sens Total Protein Albumin Globulin Albumin/Globulin Ratio Vitamin B12 Folate Cortisol AM Sample Urine Color Urine Clarity Urine pH Ur Specific [place] Urine Protein Urine Glucose (UA) Urine Ketones Urine Blood Urine Nitrate Urine Bilirubin Urine Urobilinogen Ur Leukocyte Esterase Urine WBC (Auto) Urine RBC (Auto) Ur Squamous Epith Cells Urine Bacteria Urine Osmolality 288 L Ur Random Sodium 76 Ur Random Potassium Stool Occult Blood 01/16/17 01/16/17 01/16/17 06:53 06:53 07:49 WBC RBC Hgb Hct MCV MCH MCHC RDW Plt Count MPV Neut % (Auto) Lymph % (Auto) [place] % (Auto) Eos % (Auto) Baso % (Auto) Neut # Lymph # [place] # Eos # Baso # ESR Sodium 127 L Potassium 4.4 Chloride 99 Carbon Dioxide 18 L Anion Gap 14 BUN 15 Creatinine 0.6 L Est GFR ( Amer) > 60 Est GFR (Non-Af Amer) > 60 Random Glucose 74 Serum Osmolality Uric Acid 3.8 Calcium 7.9 L Iron TIBC % Saturation Ferritin 829.0 Total Bilirubin 0.4 AST 69 H ALT 25 Alkaline Phosphatase 81 C-React Prot High Sens Total Protein 8.1 Albumin 2.5 L Globulin 5.6 H Albumin/Globulin Ratio 0.4 L Vitamin B12 > 1000 H Folate 7.3 Cortisol AM Sample 12.8 Urine Color Urine Clarity Urine pH Ur Specific [place] Urine Protein Urine Glucose (UA) Urine Ketones Urine Blood Urine Nitrate Urine Bilirubin Urine Urobilinogen Ur Leukocyte Esterase Urine WBC (Auto) Urine RBC (Auto) Ur Squamous Epith Cells Urine Bacteria Urine Osmolality Ur Random Sodium Ur Random Potassium 14.1 Stool Occult Blood 01/16/17 01/16/17 01/16/17 11:47 11:47 12:50 WBC 3.6 L RBC 3.30 L Hgb 9.0 L Hct 26.3 L MCV 79.8 L MCH 27.4 MCHC 34.3 RDW 17.1 H Plt Count 109 L MPV 7.8 Neut % (Auto) 74.6 Lymph % (Auto) 15.1 L [place] % (Auto) 9.3 Eos % (Auto) 0.8 Baso % (Auto) 0.2 Neut # 2.7 Lymph # 0.5 L [place] # 0.3 Eos # 0.0 Baso # 0.0 ESR 120 H Sodium 125 L Potassium 4.2 Chloride 98 Carbon Dioxide 20 L Anion Gap 11 BUN 14 Creatinine 0.5 L Est GFR ( Amer) > 60 Est GFR (Non-Af Amer) > 60 Random Glucose 92 Serum Osmolality Uric Acid Calcium 7.8 L Iron TIBC % Saturation Ferritin Total Bilirubin 0.3 AST 60 H ALT 29 Alkaline Phosphatase 70 C-React Prot High Sens Total Protein 7.4 Albumin 2.3 L Globulin 5.2 H Albumin/Globulin Ratio 0.4 L Vitamin B12 Folate Cortisol AM Sample Urine Color Urine Clarity Urine pH Ur Specific [place] Urine Protein Urine Glucose (UA) Urine Ketones Urine Blood Urine Nitrate Urine Bilirubin Urine Urobilinogen Ur Leukocyte Esterase Urine WBC (Auto) Urine RBC (Auto) Ur Squamous Epith Cells Urine Bacteria Urine Osmolality Ur Random Sodium Ur Random Potassium Stool Occult Blood 01/16/17 01/16/17 01/16/17 12:50 14:29 20:00 WBC RBC Hgb Hct MCV MCH MCHC RDW Plt Count MPV Neut % (Auto) Lymph % (Auto) [place] % (Auto) Eos % (Auto) Baso % (Auto) Neut # Lymph # [place] # Eos # Baso # ESR Sodium 124 L Potassium 4.2 Chloride 95 L Carbon Dioxide 20 L Anion Gap 13 BUN 13 Creatinine 0.6 L Est GFR ( Amer) > 60 Est GFR (Non-Af Amer) > 60 Random Glucose 94 Serum Osmolality Uric Acid Calcium 7.6 L Iron TIBC % Saturation Ferritin Total Bilirubin AST ALT Alkaline Phosphatase C-React Prot High Sens > 15.00 H Total Protein Albumin Globulin Albumin/Globulin Ratio Vitamin B12 Folate Cortisol AM Sample Urine Color Urine Clarity Urine pH Ur Specific [place] Urine Protein Urine Glucose (UA) Urine Ketones Urine Blood Urine Nitrate Urine Bilirubin Urine Urobilinogen Ur Leukocyte Esterase Urine WBC (Auto) Urine RBC (Auto) Ur Squamous Epith Cells Urine Bacteria Urine Osmolality Ur Random Sodium Ur Random Potassium Stool Occult Blood Negative 01/16/17 01/16/17 01/16/17 20:00 20:02 20:02 WBC RBC Hgb Hct MCV MCH MCHC RDW Plt Count MPV Neut % (Auto) Lymph % (Auto) [place] % (Auto) Eos % (Auto) Baso % (Auto) Neut # Lymph # [place] # Eos # Baso # ESR Sodium Potassium Chloride Carbon Dioxide Anion Gap BUN Creatinine Est GFR ( Amer) Est GFR (Non-Af Amer) Random Glucose Serum Osmolality 287 Uric Acid Calcium Iron TIBC % Saturation Ferritin Total Bilirubin AST ALT Alkaline Phosphatase C-React Prot High Sens Total Protein Albumin Globulin Albumin/Globulin Ratio Vitamin B12 Folate Cortisol AM Sample Urine Color Straw Urine Clarity Slight-cloudy Urine pH 6.0 Ur Specific [place] 1.020 Urine Protein Trace Urine Glucose (UA) Negative Urine Ketones Negative Urine Blood 1+ H Urine Nitrate Negative Urine Bilirubin Negative Urine Urobilinogen 0.2 Ur Leukocyte Esterase Negative Urine WBC (Auto) 3 Urine RBC (Auto) 6 H Ur Squamous Epith Cells 2 Urine Bacteria Occ H Urine Osmolality 654 Ur Random Sodium 179 Ur Random Potassium Stool Occult Blood - Imaging and Cardiology Chest x-ray Status: Image reviewed by me Additional comment: diffuse reticular opacities Assessment & Plan (1) Hyponatremia Assessment and Plan: Has had mild hyponatremia on labs ~3 months ago, worsened currently; history is indicative of some degree of volume depletion in the setting of decreased PO intake; Ur osm significantly elevated this evening, also consistent with volume depletion; however, with lung findings and constitutional symptoms, may have a cause for SIADH; -continue to correct any volume depletion; agree with NS at 75 cc/hr (will first give 1L over 4 hours); -repeat bmp and Ur osm after 1L NS given Status: Acute (2) Hematuria Assessment and Plan: Microscopic hematuria of unclear etiology; glomerular v tract; -check random urine microalbumin, protein and creatinine -urine cytology -C3 and C4 Status: Acute (3) Tachycardia Assessment and Plan: Likely due to volume depletion; NSR on ECG; will re-assess after IVF; Status: Acute (4) Anemia Assessment and Plan: Due to iron deficiency and chronic disease; administer IV iron while admitted; Status: Chronic (5) Rheumatoid arthritis Assessment and Plan: Unclear if diagnosis and f/u done by visual merchandising director as patient reports only being on Tylenol for her symptoms; -avoid NSAIDS (can potentiate effect of ADH and worsen hyponatremia) Status: Acute
[2017-01-16] MEDS ORDERED: Sodium Chloride 0.9% 1,000 ML IV SCH (23:45)
[2017-01-17] MEDS: Sodium Chloride 0.9% 1,000 ML IV SCH ×3 (00:10→12:35)
[2017-01-17 01:04] LABS: CHLORIDE 96 mmol/L (98-107); POTASSIUM 3.9 mmol/L (3.6-5.2); SODIUM 122 mmol/L (132-148)
[2017-01-17 01:07] LABS: BLOOD UREA NITROGEN 13 mg/dL (7-17); CARBON DIOXIDE 18 mmol/L (22-30); GFR AFRICAN-AMERICAN > 60
[2017-01-17 01:08] LABS: CALCIUM 7.7 mg/dl (8.6-10.4); GLUCOSE,RANDOM 87 mg/dL (65-105)
[2017-01-17 04:49] LABS: BASO % 0.2 % (0.0-2.0); EOS % 0.4 % (0.0-4.0); HEMATOCRIT 25.5 % (34.0-47.0); LYMPH # 0.5 K/uL (1.0-4.3); LYMPH % 14.5 % (20.0-40.0); MEAN CORPUSCULAR HGB CONC 34.1 g/dL (33.0-37.0); MEAN PLATELET VOLUME 7.5 fL (7.2-11.7); MONO # 0.3 K/uL (0.0-0.8); MONO % 9.3 % (0.0-10.0); NRBC % 0.1 % (0.0-2.0); RED CELL DISTRIBUTION WIDTH 17.1 % (11.5-14.5); WHITE BLOOD COUNT 3.2 K/uL (4.8-10.8)
[2017-01-17 04:56] LABS: CHLORIDE 98 mmol/L (98-107)
[2017-01-17 04:57] LABS: POTASSIUM 3.6 mmol/L (3.6-5.2); SODIUM 124 mmol/L (132-148)
[2017-01-17 04:59] LABS: BILIRUBIN,TOTAL 0.3 mg/dL (0.2-1.3); CARBON DIOXIDE 18 mmol/L (22-30); GFR AFRICAN-AMERICAN > 60
[2017-01-17 05:00] LABS: ALB/GLOB RATIO 0.4 (1.0-2.1); ALKALINE PHOSPHATASE 67 U/L (38-126); ALT/SGPT 35 U/L (9-52); AST/SGOT 59 U/L (14-36); BLOOD UREA NITROGEN 11 mg/dL (7-17); GLUCOSE,RANDOM 79 mg/dL (65-105); TOTAL PROTEIN 7.2 g/dL (6.3-8.3); URIC ACID 3.3 mg/dL (2.2-7.5)
[2017-01-17 05:01] LABS: CALCIUM 7.3 mg/dl (8.6-10.4)
[2017-01-17 05:34] LABS: THYROID STIMULATING HORMONE 4.26 mIU/L (0.46-4.68)
[2017-01-17 06:08] LABS: FOLATE 7.1 ng/mL
[2017-01-17 06:45] LABS: OSMOLALITY,SERUM 264 mosm/kg (272-300)
--- NOTE | 2017-01-17 08:48 | CP.PCM.PN ---
<Madison Watson - Last Filed: 01/17/17 10:53> Subjective - Date & Time of Evaluation Date of Evaluation: 01/17/17 Time of Evaluation: 08:00 - Subjective Subjective: Medicine Note for Dr. Sigala Patient was seen and examined at bedside. Patient reports she is thirsty and feels dry. Reports some generalized pain especially upper and lower extremities. Denied fever, chills, headache, SOB, chest pain, abdominal pain, n /v/d/c/, or urinary symptoms. Objective - Vital Signs/Intake and Output Vital Signs (last 24 hours): Temp Pulse Resp BP Pulse Ox 98.4 F 105 H 20 102/61 97 01/17/17 07:00 01/17/17 07:00 01/17/17 07:00 01/17/17 07:00 01/17/17 07:00 Intake and Output: 01/17/17 01/17/17 06:59 18:59 Intake Total 1550 Output Total 600 Balance 950 - Medications Medications: Current Medications Acetaminophen (Tylenol 325mg Tab) 650 mg PO Q6 PRN PRN Reason: Pain, Mild (1-3) Last Admin: 01/17/17 02:36 Dose: 650 mg Famotidine (Pepcid) 20 mg PO BID [facility] Ferric Sodium Gluconate Complex (Ferrlecit) 125 mg IVPB DAILY [facility] Stop: 01/26/17 10:01 Sodium Chloride (Sodium Chloride 0.9%) 1,000 mls @ 75 mls/hr IV .[id number] [facility] Last Admin: 01/17/17 04:24 Dose: 75 mls/hr Pneumococcal Polyvalent Vaccine (Pneumovax 23 Vaccine) 0.5 ml IM .ONCE ONE Stop: 01/17/17 10:01 - Labs Labs: 01/17/17 04:39 01/17/17 04:39 - Additional Findings Additional findings: - Constitutional Appears: Non-toxic - Head Exam Head Exam: NORMAL INSPECTION - Eye Exam Eye Exam: EOMI Additional comments: periorbital itching heliotrope like rash noted on physical exam - ENT Exam ENT Exam: Mucous Membranes Moist - Neck Exam Neck Exam: Full ROM. absent: Tenderness - Respiratory Exam Respiratory Exam: Clear to Ausculation Bilateral, NORMAL BREATHING PATTERN. absent: Accessory Muscle Use, Respiratory Distress - Cardiovascular Exam Cardiovascular Exam: REGULAR RHYTHM. absent: Bradycardia, Tachycardia - GI/Abdominal Exam GI & Abdominal Exam: Soft. absent: Tenderness - Exam Exam: NORMAL INSPECTION - Extremities Exam Extremities Exam: Full ROM. 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 Bee) on board-->f/u recommendations * Na on admission 125; Low osmolarity: 275 Urine osmolality: 288, Urine sodium: 76-->hypovolemic hyponatremia * Clinically appears dry; however reporting she has been drinking alot of water * 01/16 CT Head: No acute intracranial hemorrhage. chronic white matter and basal nuclei ischemic changes. generalized volume loss partially empty sella * Patient was fluid restricted patient given her drinking excessive picture--> but patient's values do not reflect SIADH/primary polydipsia-->will start NS 75cc/hr at 11pm * Insert bloom; monitor intake and out * F/u BMP with urine osmolarity and urine sodium Q4H Rheumatoid arthritis Assessment and Plan: * con't home med tylenol 650mg PO Q 6H PRN pain * Motrin 400mg PO Q 8hr PRN pain moderate Pancytopenia History of Iron Deficiency Anemia Thrombocytopenia Assessment and Plan: * Patient has had GI workup with Dr. Calero/Dr. Peña group * Colonoscopy (12/25/16): non-bleeding internal hemorrhoids * Endoscopy (12/25/16): normal esophagus. 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 Mohan Tipton x 10 days * D/C Heparin * HIT antibodies ordered * Serotonin release assay ordered Reticular Opacities in Lungs Assessment and Plan: * bibasalar rales and wheezing on ausc; denies dyspnea; breathing comfortably on room air; no hx of smoking * CXR: non-specific diffuse reticular opacities in the lungs more prominent at the lung bases and in upper lobes R>L. Mild hyperinflation of the lungs. * CT Chest w/o contrast (01/16): underlying emphysema with extensive the interstitial fibrosis with more confluent opacities in the lower lung johnson. R/ o infiltrates. B/l lower love cylindrical type bronchiectat changes. Multiplelower love pneumatoceles and smal to medium size bled changes. Biapical and bibasilar pleural thickenng with adjacent parenchymal scarring Hematuria Assessment and Plan: * Microscopic hematuria of unclear etiology; glomerular v tract; * check random urine microalbumin, protein and creatinine * urine cytology * C3 and C4 - LOW <40, <8 Possible Sjorgen's Syndrome Assessment and Plan: * Reports dry eyes, dry mouth, in spite of excessive water intake * Order for ESR, CRP, SHERRIE, anti-Ro, anti-La * Patient appears to have heliotrope rash-->ordered for aldolase Prophylactic measure Assessment and Plan: * GI: protonix 40mg po daily * DVT: heparin 5000u sc Q8H, On hold due to pancytopenia. * Diet: regular diet * con't home meds iron and d/c B12 * PT: Subacute rehab * OT: pending evaluation * PMD: Dr. Dejesus in [facility] Shirley Holguin DO, PGY-1 <Zandra Sigala V - Last Filed: 01/20/17 18:42> Objective - Vital Signs/Intake and Output Vital Signs (last 24 hours): Temp Pulse Resp BP Pulse Ox 97.6 F 110 H 20 135/87 96 01/20/17 15:00 01/20/17 15:00 01/20/17 15:00 01/20/17 15:00 01/20/17 15:00 Intake and Output: 01/20/17 01/20/17 06:59 18:59 Intake Total 600 200 Output Total 1800 600 Balance -1200 -400 - Medications Medications: Current Medications Acetaminophen (Tylenol 325mg Tab) 650 mg PO Q6 PRN PRN Reason: Pain, Mild (1-3) Last Admin: 01/19/17 02:49 Dose: 650 mg Docusate Sodium (Colace) 100 mg PO TID [facility] Last Admin: 01/20/17 13:36 Dose: 100 mg Sodium Chloride (Sodium Chloride 0.9%) 1,000 mls @ 75 mls/hr IV .[id number] [facility] Last Admin: 01/17/17 12:35 Dose: Not Given Ciprofloxacin (Cipro 400mg/200ml Dsw) 400 mg in 200 mls @ 133 mls/hr IVPB Q12H [facility] Last Admin: 01/20/17 10:59 Dose: 133 mls/hr Potassium Chloride (Potassium Chloride 20 Meq/100 Ml) 20 meq in 100 mls @ 50 mls/hr IVPB ONCE ONE Stop: 01/20/17 17:59 Last Admin: 01/20/17 16:23 Dose: 50 mls/hr Ondansetron HCl (Zofran Inj) 4 mg IVP Q6H PRN PRN Reason: Nausea/Vomiting Pantoprazole Sodium (Protonix Inj) 40 mg IVP DAILY [facility] Last Admin: 01/19/17 09:49 Dose: 40 mg Prednisone (Prednisone Tab) 20 mg PO DAILY [facility] Stop: 01/23/17 10:00 Last Admin: 01/20/17 10:57 Dose: 20 mg Saccharomyces Boulardii (Florastor) 250 mg PO BID [facility] Last Admin: 01/20/17 10:57 Dose: 250 mg - Labs Labs: 01/20/17 06:23 01/20/17 06:23 Attending/Attestation - Attestation I have personally seen and examined this patient.: Yes I have fully participated in the care of the patient.: Yes I have reviewed all pertinent clinical information, including history, physical exam and plan: Yes
[2017-01-17 09:15] LABS: CHLORIDE 97 mmol/L (98-107); SODIUM 125 mmol/L (132-148)
[2017-01-17 09:16] LABS: POTASSIUM 3.8 mmol/L (3.6-5.2)
[2017-01-17 09:18] LABS: GFR AFRICAN-AMERICAN > 60
[2017-01-17 09:19] LABS: BLOOD UREA NITROGEN 12 mg/dL (7-17); CALCIUM 7.1 mg/dl (8.6-10.4); CARBON DIOXIDE 20 mmol/L (22-30); GLUCOSE,RANDOM 88 mg/dL (65-105)
[2017-01-17 09:22] LABS: CHLORIDE URINE 80 mmol/L (32-290)
[2017-01-17] MEDS ORDERED: Pneumococcal 23-Valent Vaccine IM ONE (10:00)
[2017-01-17] MEDS: Ferric Sodium Gluconat Complex 62.5 mg/5 ml Vial IVPB SCH (10:05)
[2017-01-17 11:49] LABS: CHLORIDE 97 mmol/L (98-107); SODIUM 121 mmol/L (132-148)
[2017-01-17 11:50] LABS: POTASSIUM 3.7 mmol/L (3.6-5.2)
[2017-01-17 11:52] LABS: GFR AFRICAN-AMERICAN > 60
[2017-01-17 11:53] LABS: BLOOD UREA NITROGEN 12 mg/dL (7-17); CALCIUM 7.1 mg/dl (8.6-10.4); CARBON DIOXIDE 19 mmol/L (22-30); GLUCOSE,RANDOM 92 mg/dL (65-105)
[2017-01-17] MEDS ORDERED: Tolvaptan 15 MG TAB PO ONE (12:42)
[2017-01-17 13:01] LABS: CREATININE, RANDOM URINE 61.2 mg/dL
[2017-01-17] MEDS ORDERED: MethylPREDNISolone 40 mg Vial IVP STA (13:03)
[2017-01-17 15:06] LABS: CHLORIDE 96 mmol/L (98-107); POTASSIUM 3.6 mmol/L (3.6-5.2); SODIUM 122 mmol/L (132-148)
[2017-01-17 15:08] LABS: GFR AFRICAN-AMERICAN > 60
[2017-01-17 15:09] LABS: BLOOD UREA NITROGEN 11 mg/dL (7-17); CALCIUM 7.1 mg/dl (8.6-10.4); CARBON DIOXIDE 19 mmol/L (22-30); GLUCOSE,RANDOM 114 mg/dL (65-105)
[2017-01-17 19:49] LABS: CHLORIDE 102 mmol/L (98-107)
[2017-01-17 19:50] LABS: POTASSIUM 4.4 mmol/L (3.6-5.2); SODIUM 131 mmol/L (132-148)
[2017-01-17 19:53] LABS: BLOOD UREA NITROGEN 11 mg/dL (7-17); CARBON DIOXIDE 19 mmol/L (22-30); GFR AFRICAN-AMERICAN > 60; GLUCOSE,RANDOM 107 mg/dL (65-105)
[2017-01-17 19:57] LABS: IRON 145 ug/dL (37-170)
[2017-01-18 08:34] LABS: BASO % 0.2 % (0.0-2.0); HEMATOCRIT 26.5 % (34.0-47.0); LYMPH # 0.8 K/uL (1.0-4.3); MEAN CELL VOLUME 79.4 fL (81.0-99.0); MEAN CORPUSCULAR HEMOGLOBIN 27.7 pg (27.0-31.0); MEAN CORPUSCULAR HGB CONC 34.9 g/dL (33.0-37.0); MEAN PLATELET VOLUME 7.8 fL (7.2-11.7); MONO # 0.5 K/uL (0.0-0.8); MONO % 12.5 % (0.0-10.0); NRBC % 0.1 % (0.0-2.0); RED CELL DISTRIBUTION WIDTH 17.7 % (11.5-14.5); WHITE BLOOD COUNT 4.3 K/uL (4.8-10.8)
[2017-01-18 08:59] LABS: CHLORIDE 104 mmol/L (98-107); SODIUM 135 mmol/L (132-148)
[2017-01-18 09:00] LABS: POTASSIUM 4.3 mmol/L (3.6-5.2)
[2017-01-18 09:02] LABS: ALB/GLOB RATIO 0.5 (1.0-2.1); ALKALINE PHOSPHATASE 62 U/L (38-126); ALT/SGPT 32 U/L (9-52); AST/SGOT 70 U/L (14-36); BILIRUBIN,TOTAL 0.5 mg/dL (0.2-1.3); BLOOD UREA NITROGEN 16 mg/dL (7-17); CARBON DIOXIDE 19 mmol/L (22-30); GFR AFRICAN-AMERICAN > 60; GLUCOSE,RANDOM 108 mg/dL (65-105); TOTAL PROTEIN 7.9 g/dL (6.3-8.3)
[2017-01-18] MEDS: Ferric Sodium Gluconat Complex 62.5 mg/5 ml Vial IVPB SCH (09:54)
--- NOTE | 2017-01-18 10:57 | CP.PCM.PN ---
Subjective - Date & Time of Evaluation Date of Evaluation: 01/18/17 Time of Evaluation: 10:56 - Subjective Subjective: patient seen and evaluated at bedside this AM; denies any overnight events or acute complaints; denies fevers/chills, JEFFERY, CP, SOB, abdominal pain, N/V/D, dysuria/freq/urg or lower extremity pain/swelling. Objective - Vital Signs/Intake and Output Vital Signs (last 24 hours): Temp Pulse Resp BP Pulse Ox 98.2 F 101 H 18 100/50 L 98 01/18/17 08:00 01/18/17 08:00 01/18/17 08:00 01/18/17 08:00 01/18/17 08:01 Intake and Output: 01/18/17 01/18/17 06:59 18:59 Intake Total 300 Output Total 2300 Balance -2000 - Medications Medications: Current Medications Acetaminophen (Tylenol 325mg Tab) 650 mg PO Q6 PRN PRN Reason: Pain, Mild (1-3) Last Admin: 01/17/17 12:16 Dose: 650 mg Ferric Sodium Gluconate Complex (Ferrlecit) 125 mg IVPB DAILY [facility] Stop: 01/26/17 10:01 Last Admin: 01/18/17 09:54 Dose: 125 mg Sodium Chloride (Sodium Chloride 0.9%) 1,000 mls @ 75 mls/hr IV .[id number] [facility] Last Admin: 01/17/17 12:35 Dose: Not Given Dextrose (Dextrose 5% In Water 1000 Ml) 1,000 mls @ 250 mls/hr IV .Q4H [facility] Stop: 01/18/17 13:16 Desmopressin Acetate 2 mcg/ (Sodium Chloride) 50.5 mls @ 100 mls/hr IV ONCE ONE Stop: 01/18/17 11:15 Pantoprazole Sodium (Protonix Inj) 40 mg IVP DAILY [facility] Last Admin: 01/18/17 09:54 Dose: 40 mg - Labs Labs: 01/18/17 08:21 01/18/17 08:27 - Constitutional Appears: Non-toxic - Head Exam Head Exam: ATRAUMATIC - Eye Exam Eye Exam: EOMI Pupil Exam: PERRL - ENT Exam ENT Exam: Mucous Membranes Moist - Neck Exam Neck Exam: Full ROM. absent: Lymphadenopathy - Respiratory Exam Respiratory Exam: Clear to Ausculation Bilateral, NORMAL BREATHING PATTERN. absent: Rales, Rhonchi, Wheezes - Cardiovascular Exam Cardiovascular Exam: REGULAR RHYTHM - Extremities Exam Extremities Exam: absent: Calf Tenderness - Back Exam Back Exam: absent: CVA tenderness (L), CVA tenderness (R) - Neurological Exam Neurological Exam: Alert, Awake, Oriented x3 - Psychiatric Exam Psychiatric exam: Normal Affect - Skin Skin Exam: Warm Assessment and Plan - Assessment and Plan (Free Text) Assessment: Hyponatremia; resolving * Nephrology (Dr. Bee) on board-->f/u recommendations-->currently on Tolvaptan * Na on admission 125; Low osmolarity: 275 Urine osmolality: 288, Urine sodium: 76-->hypovolemic hyponatremia * Clinically appears dry; however reporting she has been drinking alot of water * 01/16 CT Head: No acute intracranial hemorrhage. chronic white matter and basal nuclei ischemic changes. generalized volume loss partially empty sella * Patient was fluid restricted patient given her drinking excessive picture--> but patient's values do not reflect SIADH/primary polydipsia-->will start NS 75cc/hr at 11pm * Insert bloom; monitor intake and out Rheumatoid arthritis * con't home med tylenol 650mg PO Q 6H PRN pain * Motrin 400mg PO Q 8hr PRN pain moderate * f/u rheumatoid panel with other autoimmune workup Pancytopenia History of Iron Deficiency Anemia Thrombocytopenia * Patient has had GI workup with Dr. Calero/Dr. Peña group * Colonoscopy (12/25/16): non-bleeding internal hemorrhoids * Endoscopy (12/25/16): normal esophagus. 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 Mohan Tipton x 10 days * D/C Heparin * HIT antibodies ordered; awaiting results * Serotonin release assay ordered; awaiting results Reticular Opacities in Lungs * bibasalar rales and wheezing on ausc; denies dyspnea; breathing comfortably on room air; no hx of smoking * CXR: non-specific diffuse reticular opacities in the lungs more prominent at the lung bases and in upper lobes R>L. Mild hyperinflation of the lungs. * CT Chest w/o contrast (01/16): underlying emphysema with extensive the interstitial fibrosis with more confluent opacities in the lower lung johnson. R/ o infiltrates. B/l lower love cylindrical type bronchiectat changes. Multiplelower love pneumatoceles and smal to medium size bled changes. Biapical and bibasilar pleural thickenng with adjacent parenchymal scarring Hematuria * Microscopic hematuria of unclear etiology; glomerular v tract; * check random urine microalbumin, protein and creatinine * urine cytology; f/u results * C3 and C4 - LOW <40, <8 Possible Sjorgen's Syndrome * Reports dry eyes, dry mouth, in spite of excessive water intake * Order for ESR, CRP, SHERRIE, anti-Ro, anti-La; f/u labs * Patient appears to have heliotrope rash-->ordered for aldolase Prophylactic measure * GI: protonix 40mg po daily * DVT: heparin 5000u sc Q8H, On hold due to pancytopenia. * Diet: regular diet * con't home meds iron and d/c B12 * PT: Subacute rehab * OT: pending evaluation * PMD: Dr. Dejesus in [place] Dr. Sigala, Dr. Nickolas Rubin PGY2 Note for Dr. sigala
[2017-01-18 13:53] LABS: CHLORIDE 101 mmol/L (98-107); POTASSIUM 3.7 mmol/L (3.6-5.2); SODIUM 131 mmol/L (132-148)
[2017-01-18 13:56] LABS: BLOOD UREA NITROGEN 19 mg/dL (7-17); CALCIUM 7.4 mg/dl (8.6-10.4); CARBON DIOXIDE 19 mmol/L (22-30); GFR AFRICAN-AMERICAN > 60; GLUCOSE,RANDOM 172 mg/dL (65-105)
[2017-01-19 06:21] LABS: BASO % 0.2 % (0.0-2.0); EOS % 0.6 % (0.0-4.0); LYMPH # 0.4 K/uL (1.0-4.3); LYMPH % 8.5 % (20.0-40.0); MEAN CELL VOLUME 80.1 fL (81.0-99.0); MEAN CORPUSCULAR HEMOGLOBIN 27.4 pg (27.0-31.0); MEAN CORPUSCULAR HGB CONC 34.2 g/dL (33.0-37.0); MEAN PLATELET VOLUME 7.5 fL (7.2-11.7); MONO # 0.3 K/uL (0.0-0.8); MONO % 6.5 % (0.0-10.0); PLATELET COUNT 120 K/uL (130-400); RED CELL DISTRIBUTION WIDTH 17.7 % (11.5-14.5); WHITE BLOOD COUNT 4.8 K/uL (4.8-10.8)
[2017-01-19 06:28] LABS: CHLORIDE 99 mmol/L (98-107); POTASSIUM 3.8 mmol/L (3.6-5.2); SODIUM 125 mmol/L (132-148)
[2017-01-19 06:30] LABS: AST/SGOT 64 U/L (14-36); BILIRUBIN,TOTAL 0.3 mg/dL (0.2-1.3); CARBON DIOXIDE 20 mmol/L (22-30); GFR AFRICAN-AMERICAN > 60
[2017-01-19 06:31] LABS: ALB/GLOB RATIO 0.5 (1.0-2.1); ALKALINE PHOSPHATASE 61 U/L (38-126); ALT/SGPT 34 U/L (9-52); BLOOD UREA NITROGEN 18 mg/dL (7-17); CALCIUM 7.8 mg/dl (8.6-10.4); GLUCOSE,RANDOM 83 mg/dL (65-105); TOTAL PROTEIN 6.6 g/dL (6.3-8.3)
[2017-01-19 08:25] LABS: NEUTROPHIL 96 % (50-75); TOTAL CELLS COUNTED 100
[2017-01-19] MEDS: Ferric Sodium Gluconat Complex 62.5 mg/5 ml Vial IVPB SCH (09:49)
[2017-01-19] MEDS ORDERED: Sodium Chloride 0.9% 1,000 ML IV ONE (10:14)
[2017-01-19] MEDS ORDERED: Ciprofloxacin 400mg/200ml D5W 400 MG/200 ML BAG IVPB SCH (11:00)
[2017-01-19] MEDS: Saccharomyces Boulardi 250 mg Cap PO SCH ×2 (11:49→18:10)
[2017-01-19 14:59] LABS: RBC URINE 135 /hpf (0-3); URINE BACTERIA RARE (<OCC); URINE BILIRUBIN NEGATIVE (NEGATIVE); URINE BLOOD 3+ (NEGATIVE); URINE COLOR Yellow (YELLOW); URINE GLUCOSE (UA) NORMAL (Normal); URINE KETONE NEGATIVE (NEGATIVE); URINE LEUKOCYTE ESTERASE 2+ Leu/uL (Negative); URINE PROTEIN 1+ mg/dL (NEGATIVE); URINE UROBILINOGEN NORMAL mg/dL (0.2-1.0); WBC URINE 386 /hpf (0-5)
--- NOTE | 2017-01-19 17:43 | CP.PCM.PN ---
Subjective - Date & Time of Evaluation Date of Evaluation: 01/19/17 Time of Evaluation: 07:00 - Subjective Subjective: Progress note for Dr. Green Patient seen and examined at bedside. Patient states she cannot sleep well and had a bad night. She states it's hard to fall asleep. Patient states she has not had a bowel movement in 8 days. Colase three tabs were ordered for today and dulcolax for tomorrow. Patient was made aware. Patient denies headache, nausea, vomiting, abdominal pain. Patient admits to constipation. Objective - Vital Signs/Intake and Output Vital Signs (last 24 hours): Temp Pulse Resp BP Pulse Ox 98.3 F 94 H 20 107/63 97 01/19/17 16:00 01/19/17 16:00 01/19/17 16:00 01/19/17 16:00 01/19/17 16:00 Intake and Output: 01/19/17 01/19/17 06:59 18:59 Intake Total 450 1000 Output Total 225 400 Balance 225 600 - Medications Medications: Current Medications Acetaminophen (Tylenol 325mg Tab) 650 mg PO Q6 PRN PRN Reason: Pain, Mild (1-3) Last Admin: 01/19/17 02:49 Dose: 650 mg Docusate Sodium (Colace) 100 mg PO TID [facility] Last Admin: 01/19/17 13:43 Dose: 100 mg Ferric Sodium Gluconate Complex (Ferrlecit) 125 mg IVPB DAILY [facility] Stop: 01/26/17 10:01 Last Admin: 01/19/17 09:49 Dose: 125 mg Sodium Chloride (Sodium Chloride 0.9%) 1,000 mls @ 75 mls/hr IV .[id number] [facility] Last Admin: 01/17/17 12:35 Dose: Not Given Ciprofloxacin (Cipro 400mg/200ml Dsw) 400 mg in 200 mls @ 133 mls/hr IVPB Q12H [facility] Ondansetron HCl (Zofran Inj) 4 mg IVP Q6H PRN PRN Reason: Nausea/Vomiting Pantoprazole Sodium (Protonix Inj) 40 mg IVP DAILY [facility] Last Admin: 01/19/17 09:49 Dose: 40 mg Prednisone (Prednisone Tab) 20 mg PO DAILY [facility] Stop: 01/23/17 10:00 Last Admin: 01/19/17 09:48 Dose: 20 mg Saccharomyces Boulardii (Florastor) 250 mg PO BID [facility] Last Admin: 01/19/17 11:49 Dose: 250 mg - Labs Labs: 01/19/17 06:11 01/19/17 06:11 - Constitutional Appears: Non-toxic - Head Exam Head Exam: NORMAL INSPECTION - Eye Exam Eye Exam: EOMI, Normal appearance - ENT Exam ENT Exam: Mucous Membranes Moist - Neck Exam Neck Exam: Full ROM - Respiratory Exam Respiratory Exam: Clear to Ausculation Bilateral. absent: Accessory Muscle Use , Wheezes - Cardiovascular Exam Cardiovascular Exam: REGULAR RHYTHM, +S1, +S2. absent: Bradycardia, Tachycardia - GI/Abdominal Exam GI & Abdominal Exam: Soft, Normal Bowel Sounds. absent: Tenderness - Rectal Exam Rectal Exam: NORMAL INSPECTION - Extremities Exam Extremities Exam: Full ROM. absent: Pedal Edema - Neurological Exam Neurological Exam: Alert, Awake, Oriented x3 - Skin Skin Exam: Dry, Intact, Normal Color, Warm Assessment and Plan - Assessment and Plan (Free Text) Assessment: Hyponatremia; resolving * Nephrology (Dr. Bee) on board: currently on Tolvaptan * Na on admission 125; Low osmolarity: 275 Urine osmolality: 288, Urine sodium: 76-->hypovolemic hyponatremia * Patient is on water restriction. * 01/16 CT Head: No acute intracranial hemorrhage. chronic white matter and basal nuclei ischemic changes. generalized volume loss partially empty sella * Patient was fluid restricted patient given her drinking excessive picture--> but patient's values do not reflect SIADH/primary polydipsia-->will start NS 75cc/hr at 11pm * Insert bloom: monitor intake and out * 01/19: Urine osmolality 604 (07:44) 540 (19:34), Urine Sodium 163 (07:44) 94 ( 19:34), Serum Osmolality 272 (6am) UTI * Urinalysis: Urine WBC 386, Urine RBC 135, 3+ Urine blood, 1+ Protein, <1 squamous epithelial cells * Urine Cx: E. coli * Cipro 500 mg daily 3 days, repeat urinalysis after completion Constipation * Colace today * Dulcolax tomorrow 01/20 Rheumatoid arthritis * continue withhome med tylenol 650mg PO Q6H PRN pain * Motrin 400mg PO Q8H PRN pain moderate * f/u rheumatoid panel with other autoimmune workup Pancytopenia History of Iron Deficiency Anemia Thrombocytopenia * Patient has had GI workup with Dr. Calero/Dr. Peña group * Colonoscopy (12/25/16): non-bleeding internal hemorrhoids * Endoscopy (12/25/16): normal esophagus. 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 Preston Ferrlecit x 10 days * D/C Heparin * HIT antibodies ordered; awaiting results * Serotonin release assay ordered; awaiting results Reticular Opacities in Lungs * bibasalar rales and wheezing on ausc; denies dyspnea; breathing comfortably on room air; no hx of smoking * CXR: non-specific diffuse reticular opacities in the lungs more prominent at the lung bases and in upper lobes R>L. Mild hyperinflation of the lungs. * 01/16 CT Chest w/o contrast: underlying emphysema with extensive the interstitial fibrosis with more confluent opacities in the lower lung johnson. R/ o infiltrates. B/l lower love cylindrical type bronchiectat changes. Multiplelower love pneumatoceles and smal to medium size bled changes. Biapical and bibasilar pleural thickenng with adjacent parenchymal scarring * Patient is on prednisone, will DC with Breo Elipta 25/100 Hematuria * Microscopic hematuria of unclear etiology; glomerular v tract; * check random urine microalbumin, protein and creatinine * urine cytology; f/u results * C3 and C4 - LOW <40, <8 Possible Sjorgen's Syndrome * Reports dry eyes, dry mouth, in spite of excessive water intake * Order for ESR, CRP, SHERRIE, anti-Ro, anti-La; f/u labs * Patient appears to have heliotrope rash-->ordered for aldolase Prophylactic measure * GI: protonix 40mg po daily * DVT: heparin 5000u sc Q8H, On hold due to pancytopenia. * Diet: regular diet * con't home meds iron and d/c B12 * PT: Subacute rehab * OT: follow up * PMD: Dr. Dejesus in [place] Dr. Raheem Mcgee, DO PGY1
[2017-01-19 19:23] LABS: Interpretation Negative (Negative); Interpretation Positive (Negative)
[2017-01-19 19:54] LABS: CHLORIDE 100 mmol/L (98-107); SODIUM 127 mmol/L (132-148)
[2017-01-19 19:55] LABS: POTASSIUM 4.2 mmol/L (3.6-5.2)
[2017-01-19 19:57] LABS: CARBON DIOXIDE 18 mmol/L (22-30); GFR AFRICAN-AMERICAN > 60
[2017-01-19 19:58] LABS: BLOOD UREA NITROGEN 17 mg/dL (7-17); CALCIUM 6.9 mg/dl (8.6-10.4); GLUCOSE,RANDOM 117 mg/dL (65-105)
[2017-01-19] MEDS ORDERED: Fluticasone-Salmeterol 250-50mcg Diskus INH SCH (20:00)
[2017-01-19] MEDS: Ciprofloxacin 400mg/200ml D5W 400 MG/200 ML BAG IVPB SCH (22:20)
--- NOTE | 2017-01-20 06:08 | CON ---
DATE: HISTORY OF PRESENT ILLNESS: The patient is a 81-year-old female, admitted to the hospital complaining of weakness, fatigue,was found to have hyponatremia. X-ray showed pulmonary fibrosis. The patient denies any pulmonary symptoms weight loss. PHYSICAL EXAMINATION GENERAL: The patient is awake, alert and oriented. VITAL SIGNS: Temperature 98, pulse 92. HEENT: Within normal limits. NECK: Supple. CHEST: Symmetrical. HEART: Regular. ABDOMEN: Soft. EXTREMITIES: No edema. LABORATORY DATA: The patient had lung CT and x-ray showed pulmonary fibrosis. ASSESSMENT: Hyponatremia, could be secondary to chronic granulomatous disease. At this point, suggest QuantiFERON Gold with PPD. PLAN: Look for other etiology for hyponatremia. No immediate plans on biopsy at this point. Guillermina Harris MD
--- NOTE | 2017-01-20 06:33 | CP.PCM.PN ---
Subjective - Date & Time of Evaluation Date of Evaluation: 01/19/17 Time of Evaluation: 19:00 - Subjective Subjective: Patient reports still feeling weak, with diffuse body aches involving chest, hands, knees and ankles; Objective - Vital Signs/Intake and Output Vital Signs (last 24 hours): Temp Pulse Resp BP Pulse Ox 97.7 F 96 H 20 122/66 97 01/19/17 23:25 01/19/17 23:25 01/19/17 23:25 01/19/17 23:25 01/19/17 23:25 Intake and Output: 01/19/17 01/20/17 18:59 06:59 Intake Total 1000 500 Output Total 400 1000 Balance 600 -500 - Medications Medications: Current Medications Acetaminophen (Tylenol 325mg Tab) 650 mg PO Q6 PRN PRN Reason: Pain, Mild (1-3) Last Admin: 01/19/17 02:49 Dose: 650 mg Docusate Sodium (Colace) 100 mg PO TID [facility] Last Admin: 01/19/17 18:10 Dose: 100 mg Ferric Sodium Gluconate Complex (Ferrlecit) 125 mg IVPB DAILY [facility] Stop: 01/26/17 10:01 Last Admin: 01/19/17 09:49 Dose: 125 mg Sodium Chloride (Sodium Chloride 0.9%) 1,000 mls @ 75 mls/hr IV .[id number] [facility] Last Admin: 01/17/17 12:35 Dose: Not Given Ciprofloxacin (Cipro 400mg/200ml Dsw) 400 mg in 200 mls @ 133 mls/hr IVPB Q12H [facility] Last Admin: 01/19/17 22:20 Dose: 133 mls/hr Ondansetron HCl (Zofran Inj) 4 mg IVP Q6H PRN PRN Reason: Nausea/Vomiting Pantoprazole Sodium (Protonix Inj) 40 mg IVP DAILY [facility] Last Admin: 01/19/17 09:49 Dose: 40 mg Prednisone (Prednisone Tab) 20 mg PO DAILY [facility] Stop: 01/23/17 10:00 Last Admin: 01/19/17 09:48 Dose: 20 mg Saccharomyces Boulardii (Florastor) 250 mg PO BID [facility] Last Admin: 01/19/17 18:10 Dose: 250 mg - Labs Labs: 01/19/17 06:11 01/19/17 19:28 - Constitutional Appears: Non-toxic, Other (lethargic) - Head Exam Head Exam: NORMAL INSPECTION - Eye Exam Eye Exam: Normal appearance. absent: Scleral icterus - ENT Exam ENT Exam: Mucous Membranes Moist Additional comments: possilbe heliotropic rash around eyes; - Respiratory Exam Respiratory Exam: NORMAL BREATHING PATTERN Additional comments: bilateral extensive rales present; - Cardiovascular Exam Cardiovascular Exam: RRR, +S1, +S2 - GI/Abdominal Exam GI & Abdominal Exam: Soft. absent: Distended, Tenderness - Exam Exam: absent: Bladder Distension - Extremities Exam Additional comments: pain on movement about wrist and ankle joints; finger joint tenderness; - Neurological Exam Neurological Exam: Alert, Awake - Psychiatric Exam Psychiatric exam: Normal Affect, Normal Mood - Skin Skin Exam: Normal Color, Warm. absent: Cyanosis Assessment and Plan (1) Hyponatremia Assessment & Plan: Ur osm still elevated this morning in setting of hyponatremia; question of whether there is element of volume depletion; 1L bolus over 4 hrs given with some improvement in serum Na; repeating Ur osm this evening; holding NS at 75 cc /hr; Status: Acute (2) Hematuria Assessment & Plan: No dysmorphic RBC's seen on direct urine micro but not much microalbuminuria; should continue to monitor as outpatient for renal manifestations of underlying rheumatologic process; recommend rheumatology referral; Status: Acute (3) Tachycardia Status: Acute (4) Anemia Assessment & Plan: Iron deficiency component, continue IV iron; Status: Chronic (5) Rheumatoid arthritis Assessment & Plan: Needs further workup for rheumatologic process with sginificant complement consumption and generalized symptoms; not on any disease modifying/ immunosuppressive meds; Status: Acute
[2017-01-20 06:47] LABS: BASO % 0.1 % (0.0-2.0); EOS % 0.2 % (0.0-4.0); HEMATOCRIT 24.6 % (34.0-47.0); LYMPH # 0.5 K/uL (1.0-4.3); LYMPH % 10.4 % (20.0-40.0); MEAN CELL VOLUME 80.1 fL (81.0-99.0); MEAN CORPUSCULAR HEMOGLOBIN 27.1 pg (27.0-31.0); MEAN CORPUSCULAR HGB CONC 33.9 g/dL (33.0-37.0); MEAN PLATELET VOLUME 7.4 fL (7.2-11.7); MONO # 0.5 K/uL (0.0-0.8); MONO % 10.7 % (0.0-10.0); RED CELL DISTRIBUTION WIDTH 17.9 % (11.5-14.5); WHITE BLOOD COUNT 4.4 K/uL (4.8-10.8)
[2017-01-20 07:40] LABS: CHLORIDE 101 mmol/L (98-107); POTASSIUM 3.5 mmol/L (3.6-5.2); SODIUM 130 mmol/L (132-148)
[2017-01-20 07:43] LABS: ALB/GLOB RATIO 0.5 (1.0-2.1); AST/SGOT 60 U/L (14-36); BILIRUBIN,TOTAL 0.4 mg/dL (0.2-1.3); BLOOD UREA NITROGEN 14 mg/dL (7-17); CARBON DIOXIDE 20 mmol/L (22-30); GFR AFRICAN-AMERICAN > 60; TOTAL PROTEIN 6.7 g/dL (6.3-8.3)
[2017-01-20 07:44] LABS: ALKALINE PHOSPHATASE 59 U/L (38-126); ALT/SGPT 30 U/L (9-52); CALCIUM 7.4 mg/dl (8.6-10.4); GLUCOSE,RANDOM 74 mg/dL (65-105)
--- NOTE | 2017-01-20 10:25 | CP.PCM.PN ---
Subjective - Date & Time of Evaluation Date of Evaluation: 01/20/17 Time of Evaluation: 10:22 - Subjective Subjective: Internal Medicine Progress note for Dr. Green Patient seen and examined at bedside. No acute events overnight. Patient states she slept better tonight. She admits to flatus, denies bowel movements. Patient aware she will receive dulcolax today. Patient denies headache, fever, chills, difficulty breathing, abdominal pain, diarrhea. NS @ [address] Preston Patient received bolus due to concern for volume depletion per Dr. Preston Objective - Vital Signs/Intake and Output Vital Signs (last 24 hours): Temp Pulse Resp BP Pulse Ox 98.0 F 107 H 20 118/72 96 01/20/17 08:00 01/20/17 08:00 01/20/17 08:00 01/20/17 08:00 01/20/17 08:00 Intake and Output: 01/20/17 01/20/17 06:59 18:59 Intake Total 600 Output Total 1800 Balance -1200 - Medications Medications: Current Medications Acetaminophen (Tylenol 325mg Tab) 650 mg PO Q6 PRN PRN Reason: Pain, Mild (1-3) Last Admin: 01/19/17 02:49 Dose: 650 mg Docusate Sodium (Colace) 100 mg PO TID [facility] Last Admin: 01/19/17 18:10 Dose: 100 mg Ferric Sodium Gluconate Complex (Ferrlecit) 125 mg IVPB DAILY [facility] Stop: 01/26/17 10:01 Last Admin: 01/19/17 09:49 Dose: 125 mg Sodium Chloride (Sodium Chloride 0.9%) 1,000 mls @ 75 mls/hr IV .[id number] [facility] Last Admin: 01/17/17 12:35 Dose: Not Given Ciprofloxacin (Cipro 400mg/200ml Dsw) 400 mg in 200 mls @ 133 mls/hr IVPB Q12H [facility] Last Admin: 01/19/17 22:20 Dose: 133 mls/hr Potassium Chloride (Potassium Chloride 20 Meq/100 Ml) 20 meq in 100 mls @ 50 mls/hr IVPB BID ONE Stop: 01/20/17 12:20 Ondansetron HCl (Zofran Inj) 4 mg IVP Q6H PRN PRN Reason: Nausea/Vomiting Pantoprazole Sodium (Protonix Inj) 40 mg IVP DAILY [facility] Last Admin: 01/19/17 09:49 Dose: 40 mg Prednisone (Prednisone Tab) 20 mg PO DAILY [facility] Stop: 01/23/17 10:00 Last Admin: 01/19/17 09:48 Dose: 20 mg Saccharomyces Boulardii (Florastor) 250 mg PO BID [facility] Last Admin: 01/19/17 18:10 Dose: 250 mg - Labs Labs: 01/20/17 06:23 01/20/17 06:23 - Constitutional Appears: Non-toxic - Head Exam Head Exam: NORMAL INSPECTION - Eye Exam Eye Exam: EOMI Additional comments: heliotrope-like rash periorbital - ENT Exam ENT Exam: Mucous Membranes Moist - Neck Exam Neck Exam: Full ROM - Respiratory Exam Respiratory Exam: Decreased Breath Sounds, NORMAL BREATHING PATTERN. absent: Accessory Muscle Use, Respiratory Distress - Cardiovascular Exam Cardiovascular Exam: REGULAR RHYTHM, +S1, +S2 - GI/Abdominal Exam GI & Abdominal Exam: Soft. absent: Tenderness - Extremities Exam Extremities Exam: Full ROM, Normal Inspection. absent: Pedal Edema - Neurological Exam Neurological Exam: Alert, Awake, Oriented x3 - Psychiatric Exam Psychiatric exam: Normal Affect, Normal Mood - Skin Skin Exam: Dry, Intact, Normal Color, Warm Assessment and Plan - Assessment and Plan (Free Text) Assessment: Hyponatremia; resolving * Nephrology Consult Dr. Preston on board: currently on Tolvaptan * Na on admission 125; Low osmolarity: 275 Urine osmolality: 288, Urine sodium: 76-->hypovolemic hyponatremia * Patient is on water restriction. * 01/16 CT Head: No acute intracranial hemorrhage. chronic white matter and basal nuclei ischemic changes. generalized volume loss partially empty sella * Patient was fluid restricted patient given her drinking excessive picture--> but patient's values do not reflect SIADH/primary polydipsia-->will start NS 75cc/hr at 11pm * Insert bloom: monitor intake and out * 01/19: Urine osmolality 604 (07:44) 540 (19:34), Urine Sodium 163 (07:44) 94 ( 19:34), Serum Osmolality 272 (6am) UTI * Urinalysis: Urine WBC 386, Urine RBC 135, 3+ Urine blood, 1+ Protein, <1 squamous epithelial cells * Urine Cx: E. coli * Cipro 500 mg daily 3 days, repeat urinalysis after completion (Day 2/3, 01/20) Constipation * Colace 01/19 * Dulcolax today 01/20 * monitor Bowel movements. Rheumatoid arthritis * continue with home med tylenol 650mg PO Q6H PRN pain * Motrin 400mg PO Q8H PRN pain moderate * f/u CCP Pancytopenia History of Iron Deficiency Anemia Thrombocytopenia * Patient has had GI workup with Dr. Calero/Dr. Peña group * Colonoscopy (12/25/16): non-bleeding internal hemorrhoids * Endoscopy (12/25/16): normal esophagus. 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 Mohan Villagomezlecit x 10 days * D/C Heparin * HIT antibodies ordered; awaiting results * Serotonin release assay ordered; awaiting results Reticular Opacities in Lungs * bibasalar rales and wheezing on ausc; denies dyspnea; breathing comfortably on room air; no hx of smoking * CXR: non-specific diffuse reticular opacities in the lungs more prominent at the lung bases and in upper lobes R>L. Mild hyperinflation of the lungs. * 01/16 CT Chest w/o contrast: underlying emphysema with extensive the interstitial fibrosis with more confluent opacities in the lower lung johnson. R/ o infiltrates. B/l lower love cylindrical type bronchiectat changes. Multiplelower love pneumatoceles and smal to medium size bled changes. Biapical and bibasilar pleural thickenng with adjacent parenchymal scarring * Patient is on prednisone taper, will start advair, will DC with Breshavon Elipta 25/100 Hematuria * Microscopic hematuria of unclear etiology; glomerular v tract; * check random urine microalbumin, protein and creatinine * urine cytology * RA panel Positive High * SHERRIE 6 Profile positive H * SHERRIE titer 1:160 H * SHERRIE pattern is homogenous Sjogren's Syndrome * Reports dry eyes, dry mouth, in spite of excessive water intake * Order for ESR, CRP, SHERRIE, SSA and SSB positive * Patient appears to have heliotrope rash-->ordered for aldolase * SSA >8.0 * SSB Ab positive * complement C3 <40 * complement C4 <8.0 Prophylactic measure * GI: protonix 40mg po daily * DVT: heparin 5000u sc Q8H, On hold due to pancytopenia. * Diet: regular diet * con't home meds iron and d/c B12 * PT: Subacute rehab * OT: follow up * PMD: Dr. Dejesus in [place] Dr. Raheem Mcgee DO PGY1
[2017-01-20] MEDS ORDERED: Bisacodyl 5mg EC Tab PO ONE (10:45)
[2017-01-20] MEDS: Saccharomyces Boulardi 250 mg Cap PO SCH ×2 (10:57→17:19)
[2017-01-20] MEDS: Ferric Sodium Gluconat Complex 62.5 mg/5 ml Vial IVPB SCH (10:57)
[2017-01-20] MEDS: Ciprofloxacin 400mg/200ml D5W 400 MG/200 ML BAG IVPB SCH ×2 (10:59→21:48)
[2017-01-20] MEDS ORDERED: Sodium Chloride 0.9% 1,000 ML IV ONE (12:30)
--- NOTE | 2017-01-20 17:39 | RAD ---
PROCEDURE: Radiographs of the chest and abdomen (obstructive series) HISTORY: No bowel movement in 9 days COMPARISON: No prior. TECHNIQUE: AP radiograph of the chest, with upright and supine radiographs of the abdomen. FINDINGS: CHEST: Lungs: Chronic interstitial pulmonary disease again appreciated bilaterally without definitive interval alveolitis evident. . Cardiovascular: Normal size heart. No pulmonary vascular congestion. Pleura: No pleural fluid. No pneumothorax. Other findings: None. ABDOMEN AND PELVIS: Bowel: There is no definite bowel obstruction appreciated. Retained fecal material appears mildly prominent at the ascending colon and distal transverse segment and [id number] the rectosigmoid segment. Free air: None. Bones: Scoliotic lumbar spinal deformity. Other findings: None. IMPRESSION: A nonobstructive bowel gas pattern is appreciated with a mildly prominent retained scattered throughout various large-bowel segments, particularly at the rectosigmoid in the ascending segments. No free intrarenal gas.
--- NOTE | 2017-01-20 18:33 | CP.PCM.PN ---
Subjective - Date & Time of Evaluation Date of Evaluation: 01/20/17 Time of Evaluation: 12:15 - Subjective Subjective: Reports diffuse body pains are improved although still persist; Objective - Vital Signs/Intake and Output Vital Signs (last 24 hours): Temp Pulse Resp BP Pulse Ox 97.6 F 110 H 20 135/87 96 01/20/17 15:00 01/20/17 15:00 01/20/17 15:00 01/20/17 15:00 01/20/17 15:00 Intake and Output: 01/20/17 01/20/17 06:59 18:59 Intake Total 600 200 Output Total 1800 600 Balance -1200 -400 - Medications Medications: Current Medications Acetaminophen (Tylenol 325mg Tab) 650 mg PO Q6 PRN PRN Reason: Pain, Mild (1-3) Last Admin: 01/19/17 02:49 Dose: 650 mg Docusate Sodium (Colace) 100 mg PO TID [facility] Last Admin: 01/20/17 17:19 Dose: 100 mg Sodium Chloride (Sodium Chloride 0.9%) 1,000 mls @ 75 mls/hr IV .[id number] [facility] Last Admin: 01/17/17 12:35 Dose: Not Given Ciprofloxacin (Cipro 400mg/200ml Dsw) 400 mg in 200 mls @ 133 mls/hr IVPB Q12H [facility] Last Admin: 01/20/17 10:59 Dose: 133 mls/hr Ondansetron HCl (Zofran Inj) 4 mg IVP Q6H PRN PRN Reason: Nausea/Vomiting Pantoprazole Sodium (Protonix Inj) 40 mg IVP DAILY [facility] Last Admin: 01/19/17 09:49 Dose: 40 mg Prednisone (Prednisone Tab) 20 mg PO DAILY [facility] Stop: 01/23/17 10:00 Last Admin: 01/20/17 10:57 Dose: 20 mg Saccharomyces Boulardii (Florastor) 250 mg PO BID [facility] Last Admin: 01/20/17 17:19 Dose: 250 mg - Labs Labs: 01/20/17 06:23 01/20/17 06:23 - Constitutional Appears: Non-toxic, No Acute Distress, Cachectic - Eye Exam Eye Exam: absent: Scleral icterus - ENT Exam ENT Exam: Mucous Membranes Moist - Respiratory Exam Respiratory Exam: absent: Respiratory Distress Additional comments: bilateral rales; - Cardiovascular Exam Cardiovascular Exam: REGULAR RHYTHM, +S1, +S2 - GI/Abdominal Exam GI & Abdominal Exam: Soft. absent: Distended - Extremities Exam Additional comments: no leg edema; - Neurological Exam Neurological Exam: Alert, Awake - Psychiatric Exam Psychiatric exam: Normal Affect, Normal Mood - Skin Skin Exam: Normal Color, Warm. absent: Cyanosis Assessment and Plan (1) Hyponatremia Assessment & Plan: Has improved with saline boluses (with subsequent decrease in urine osm consistent with volume depletion etiology of hyponatremia) but worsened with gentle saline administration; no alarming intracranial process on head CT to suggest cerebral salt wasting; -another bolus of 1L NS over 4 hours given today, will repeat labs including urine osm to look for further improvement; Status: Acute (2) Hematuria Status: Acute (3) Tachycardia Assessment & Plan: In the setting of possible volume depletion, getting 1L bolus as above; Status: Acute (4) Anemia Status: Chronic (5) Rheumatoid arthritis Assessment & Plan: Doesn't seem to explain patient's constellation of symptoms (possible SLE?); awaiting rheum input; Status: Acute
--- NOTE | 2017-01-20 20:28 | CP.PCM.CON ---
History of Present Illness - History of Present Illness History of Present Illness: 81 year old female with a history of rheumatoid arthritis, admitted with progressive weakness and poor appetite, found to be pancytopenic. The patient reports to diminished appetite for several days which she feels led to her weakness. She notes she became so week she was unable to get out of bed. She is unaware of having blood problems in the past. She denies abnormal bleeding and bruising. Past medical history: Rhematoid arthrtis Past surgical history: None Family history: Denies hematologic and oncologic problems Social history: Denies tobacco, alcohol, and illicit drug use. Allergies: NKDA Review of systems: All remaining review of systems including HEENT, cardiovascular, respiratory, gastrointestinal, genitourinary, musculoskeletal, dermatologic, neurologic, and psychiatric are negative unless mentioned in the HPI. Past Patient History - Past Medical History & Family History Past Medical History?: Yes - Past Social History Smoking Status: Never Smoked - CARDIAC Hx Cardiac Disorders: Yes (cardiac arrhythmia) - PULMONARY Hx Respiratory Disorders: No - NEUROLOGICAL Hx Neurological Disorder: No Hx Syncope: Yes - HEENT Hx HEENT Problems: No - RENAL Hx Chronic Kidney Disease: No - ENDOCRINE/METABOLIC Hx Endocrine Disorders: No - HEMATOLOGICAL/ONCOLOGICAL Hx Anemia: Yes - INTEGUMENTARY Hx Dermatological Problems: No - MUSCULOSKELETAL/RHEUMATOLOGICAL Hx Arthritis: Yes - GASTROINTESTINAL Hx Gastritis: Yes - GENITOURINARY/GYNECOLOGICAL Hx Genitourinary Disorders: No - PSYCHIATRIC Hx Substance Use: No - SURGICAL HISTORY Hx Surgeries: Yes Other/Comment: EXC. LESION OF TOUGUE - ANESTHESIA Hx Anesthesia: Yes Hx Anesthesia Reactions: No Hx Malignant Hyperthermia: No Has any member of the family had a problem w/ anesthesia?: No Meds Allergies/Adverse Reactions: Allergies Allergy/AdvReac Type Severity Reaction Status Date / Time pineapple Allergy ITCHING Verified 01/15/17 14:38 shrimp Allergy ITCHING Verified 01/15/17 14:38 - Medications Medications: Current Medications Acetaminophen (Tylenol 325mg Tab) 650 mg PO Q6 PRN PRN Reason: Pain, Mild (1-3) Last Admin: 01/19/17 02:49 Dose: 650 mg Docusate Sodium (Colace) 100 mg PO TID [facility] Last Admin: 01/20/17 17:19 Dose: 100 mg Sodium Chloride (Sodium Chloride 0.9%) 1,000 mls @ 75 mls/hr IV .[id number] [facility] Last Admin: 01/17/17 12:35 Dose: Not Given Ciprofloxacin (Cipro 400mg/200ml Dsw) 400 mg in 200 mls @ 133 mls/hr IVPB Q12H [facility] Last Admin: 01/20/17 10:59 Dose: 133 mls/hr Ondansetron HCl (Zofran Inj) 4 mg IVP Q6H PRN PRN Reason: Nausea/Vomiting Pantoprazole Sodium (Protonix Inj) 40 mg IVP DAILY [facility] Last Admin: 01/19/17 09:49 Dose: 40 mg Prednisone (Prednisone Tab) 20 mg PO DAILY [facility] Stop: 01/23/17 10:00 Last Admin: 01/20/17 10:57 Dose: 20 mg Saccharomyces Boulardii (Florastor) 250 mg PO BID [facility] Last Admin: 01/20/17 17:19 Dose: 250 mg Physical Exam - Head Exam Head Exam: ATRAUMATIC - Eye Exam Eye Exam: Normal appearance - ENT Exam ENT Exam: Mucous Membranes Dry - Respiratory Exam Respiratory Exam: NORMAL BREATHING PATTERN - Cardiovascular Exam Cardiovascular Exam: +S1, +S2 - GI/Abdominal Exam GI & Abdominal Exam: Normal Bowel Sounds - Extremities Exam Extremities exam: Positive for: normal inspection - Neurological Exam Neurological exam: Oriented x3 - Psychiatric Exam Psychiatric exam: Normal Affect, Normal Mood - Skin Skin Exam: Warm Results - Vital Signs Recent Vital Signs: Last Vital Signs Temp 97.6 F 01/20/17 15:00 Pulse 110 H 01/20/17 15:00 Resp 20 01/20/17 15:00 BP 135/87 01/20/17 15:00 Pulse Ox 96 01/20/17 15:00 - Labs Result Diagrams: 01/20/17 06:23 01/20/17 06:23 Labs: Laboratory Results - last 24 hr 01/16/17 01/16/17 01/20/17 06:53 19:39 00:32 WBC RBC Hgb Hct MCV MCH MCHC RDW Plt Count MPV Neut % (Auto) Lymph % (Auto) Stafford % (Auto) Eos % (Auto) Baso % (Auto) Neut # Lymph # Stafford # Eos # Baso # ESR Sodium Potassium Chloride Carbon Dioxide Anion Gap BUN Creatinine Est GFR ( Amer) Est GFR (Non-Af Amer) Random Glucose Serum Osmolality Calcium Total Bilirubin AST ALT Alkaline Phosphatase Total Protein Albumin Globulin Albumin/Globulin Ratio Aldolase 5.6 ACTH 48 Urine Osmolality 268 L Ur Random Sodium 66 Complement C3 Complement C4 01/20/17 01/20/17 01/20/17 03:59 06:23 06:23 WBC 4.4 L RBC 3.07 L Hgb 8.3 L Hct 24.6 L MCV 80.1 L MCH 27.1 MCHC 33.9 RDW 17.9 H Plt Count 120 L MPV 7.4 Neut % (Auto) 78.6 H Lymph % (Auto) 10.4 L Stafford % (Auto) 10.7 H Eos % (Auto) 0.2 Baso % (Auto) 0.1 Neut # 3.4 Lymph # 0.5 L Stafford # 0.5 Eos # 0.0 Baso # 0.0 ESR Sodium 130 L Potassium 3.5 L Chloride 101 Carbon Dioxide 20 L Anion Gap 13 BUN 14 Creatinine 0.5 L Est GFR ( Amer) > 60 Est GFR (Non-Af Amer) > 60 Random Glucose 74 Serum Osmolality Calcium 7.4 L Total Bilirubin 0.4 AST 60 H ALT 30 Alkaline Phosphatase 59 Total Protein 6.7 Albumin 2.1 L Globulin 4.6 H Albumin/Globulin Ratio 0.5 L Aldolase ACTH Urine Osmolality 295 L Ur Random Sodium 73 Complement C3 Complement C4 01/20/17 01/20/17 01/20/17 06:23 11:46 11:46 WBC RBC Hgb Hct MCV MCH MCHC RDW Plt Count MPV Neut % (Auto) Lymph % (Auto) Stafford % (Auto) Eos % (Auto) Baso % (Auto) Neut # Lymph # Stafford # Eos # Baso # ESR 110 H Sodium Potassium Chloride Carbon Dioxide Anion Gap BUN Creatinine Est GFR ( Amer) Est GFR (Non-Af Amer) Random Glucose Serum Osmolality 275 Calcium Total Bilirubin AST ALT Alkaline Phosphatase Total Protein Albumin Globulin Albumin/Globulin Ratio Aldolase ACTH Urine Osmolality Ur Random Sodium Complement C3 < 40.0 L Complement C4 < 8.0 L 01/20/17 14:20 WBC RBC Hgb Hct MCV MCH MCHC RDW Plt Count MPV Neut % (Auto) Lymph % (Auto) Stafford % (Auto) Eos % (Auto) Baso % (Auto) Neut # Lymph # Stafford # Eos # Baso # ESR Sodium Potassium Chloride Carbon Dioxide Anion Gap BUN Creatinine Est GFR ( Amer) Est GFR (Non-Af Amer) Random Glucose Serum Osmolality Calcium Total Bilirubin AST ALT Alkaline Phosphatase Total Protein Albumin Globulin Albumin/Globulin Ratio Aldolase ACTH Urine Osmolality 457 Ur Random Sodium 160 Complement C3 Complement C4 Assessment & Plan (1) Pancytopenia Assessment and Plan: will check HIV, hepatitis panel, and monoclonal protein w/u elevated ferritin consistent with anemia of chronic disease no iron/b12/folate deficiency may need bone marrow evaluation if requires transfusion support Thank you for this interesting consult. Status: Acute
--- NOTE | 2017-01-20 20:35 | CP.PCM.PN ---
Subjective - Date & Time of Evaluation Date of Evaluation: 01/19/17 Time of Evaluation: 20:15 - Subjective Subjective: Appetite remains poor Objective - Vital Signs/Intake and Output Vital Signs (last 24 hours): Temp Pulse Resp BP Pulse Ox 97.6 F 110 H 20 135/87 96 01/20/17 15:00 01/20/17 15:00 01/20/17 15:00 01/20/17 15:00 01/20/17 15:00 Intake and Output: 01/20/17 01/21/17 18:59 06:59 Intake Total 200 Output Total 600 Balance -400 - Medications Medications: Current Medications Acetaminophen (Tylenol 325mg Tab) 650 mg PO Q6 PRN PRN Reason: Pain, Mild (1-3) Last Admin: 01/19/17 02:49 Dose: 650 mg Docusate Sodium (Colace) 100 mg PO TID [facility] Last Admin: 01/20/17 17:19 Dose: 100 mg Sodium Chloride (Sodium Chloride 0.9%) 1,000 mls @ 75 mls/hr IV .[id number] [facility] Last Admin: 01/17/17 12:35 Dose: Not Given Ciprofloxacin (Cipro 400mg/200ml Dsw) 400 mg in 200 mls @ 133 mls/hr IVPB Q12H [facility] Last Admin: 01/20/17 10:59 Dose: 133 mls/hr Ondansetron HCl (Zofran Inj) 4 mg IVP Q6H PRN PRN Reason: Nausea/Vomiting Pantoprazole Sodium (Protonix Inj) 40 mg IVP DAILY [facility] Last Admin: 01/19/17 09:49 Dose: 40 mg Prednisone (Prednisone Tab) 20 mg PO DAILY [facility] Stop: 01/23/17 10:00 Last Admin: 01/20/17 10:57 Dose: 20 mg Saccharomyces Boulardii (Florastor) 250 mg PO BID [facility] Last Admin: 01/20/17 17:19 Dose: 250 mg - Labs Labs: 01/20/17 06:23 01/20/17 06:23 - Head Exam Head Exam: ATRAUMATIC - Eye Exam Eye Exam: Normal appearance - ENT Exam ENT Exam: Mucous Membranes Dry - Respiratory Exam Respiratory Exam: NORMAL BREATHING PATTERN - Cardiovascular Exam Cardiovascular Exam: +S1, +S2 - GI/Abdominal Exam GI & Abdominal Exam: Normal Bowel Sounds - Extremities Exam Extremities Exam: Normal Inspection Assessment and Plan (1) Pancytopenia Assessment & Plan: anemia of chronic disease; H/H downtrending will consider bone marrow evaluation if H/H cont. to decline Status: Acute
--- NOTE | 2017-01-20 20:38 | CP.PCM.PN ---
Subjective - Date & Time of Evaluation Date of Evaluation: 01/20/17 Time of Evaluation: 12:30 - Subjective Subjective: Trying to eat more Objective - Vital Signs/Intake and Output Vital Signs (last 24 hours): Temp Pulse Resp BP Pulse Ox 97.6 F 110 H 20 135/87 96 01/20/17 15:00 01/20/17 15:00 01/20/17 15:00 01/20/17 15:00 01/20/17 15:00 Intake and Output: 01/20/17 01/21/17 18:59 06:59 Intake Total 200 Output Total 600 Balance -400 - Medications Medications: Current Medications Acetaminophen (Tylenol 325mg Tab) 650 mg PO Q6 PRN PRN Reason: Pain, Mild (1-3) Last Admin: 01/19/17 02:49 Dose: 650 mg Docusate Sodium (Colace) 100 mg PO TID [facility] Last Admin: 01/20/17 17:19 Dose: 100 mg Sodium Chloride (Sodium Chloride 0.9%) 1,000 mls @ 75 mls/hr IV .[id number] [facility] Last Admin: 01/17/17 12:35 Dose: Not Given Ciprofloxacin (Cipro 400mg/200ml Dsw) 400 mg in 200 mls @ 133 mls/hr IVPB Q12H [facility] Last Admin: 01/20/17 10:59 Dose: 133 mls/hr Ondansetron HCl (Zofran Inj) 4 mg IVP Q6H PRN PRN Reason: Nausea/Vomiting Pantoprazole Sodium (Protonix Inj) 40 mg IVP DAILY [facility] Last Admin: 01/19/17 09:49 Dose: 40 mg Prednisone (Prednisone Tab) 20 mg PO DAILY [facility] Stop: 01/23/17 10:00 Last Admin: 01/20/17 10:57 Dose: 20 mg Saccharomyces Boulardii (Florastor) 250 mg PO BID [facility] Last Admin: 01/20/17 17:19 Dose: 250 mg - Labs Labs: 01/20/17 06:23 01/20/17 06:23 - Head Exam Head Exam: ATRAUMATIC - Eye Exam Eye Exam: Normal appearance - ENT Exam ENT Exam: Mucous Membranes Dry - Respiratory Exam Respiratory Exam: NORMAL BREATHING PATTERN - Cardiovascular Exam Cardiovascular Exam: +S1, +S2 - GI/Abdominal Exam GI & Abdominal Exam: Normal Bowel Sounds - Extremities Exam Extremities Exam: Normal Inspection Assessment and Plan (1) Pancytopenia Assessment & Plan: normal iron/b12/folate stores anemia of chronic disease H/H has stabilized but is low will discuss bone marrow biopsy evaluation Status: Acute
[2017-01-20 22:20] LABS: HEPARIN-IND PLATELET AB Negative (Negative); RESULT Negative (Negative)
[2017-01-21 08:27] LABS: BASO % 0.3 % (0.0-2.0); EOS % 0.9 % (0.0-4.0); HEMATOCRIT 24.4 % (34.0-47.0); LYMPH # 0.5 K/uL (1.0-4.3); LYMPH % 9.9 % (20.0-40.0); MEAN CORPUSCULAR HEMOGLOBIN 27.5 pg (27.0-31.0); MEAN CORPUSCULAR HGB CONC 34.3 g/dL (33.0-37.0); MEAN PLATELET VOLUME 7.5 fL (7.2-11.7); MONO # 0.4 K/uL (0.0-0.8); MONO % 8.3 % (0.0-10.0); NRBC % 0.1 % (0.0-2.0); PLATELET COUNT 122 K/uL (130-400); WHITE BLOOD COUNT 4.8 K/uL (4.8-10.8)
[2017-01-21 08:47] LABS: CHLORIDE 99 mmol/L (98-107); SODIUM 130 mmol/L (132-148)
[2017-01-21 08:48] LABS: POTASSIUM 3.4 mmol/L (3.6-5.2)
[2017-01-21 08:50] LABS: ALB/GLOB RATIO 0.4 (1.0-2.1); ALKALINE PHOSPHATASE 63 U/L (38-126); ALT/SGPT 37 U/L (9-52); AST/SGOT 60 U/L (14-36); BILIRUBIN,TOTAL 0.4 mg/dL (0.2-1.3); BLOOD UREA NITROGEN 11 mg/dL (7-17); CARBON DIOXIDE 22 mmol/L (22-30); GFR AFRICAN-AMERICAN > 60; GLUCOSE,RANDOM 77 mg/dL (65-105); TOTAL PROTEIN 7.7 g/dL (6.3-8.3)
[2017-01-21 08:51] LABS: CALCIUM 7.6 mg/dl (8.6-10.4)
[2017-01-21 09:07] LABS: MYELOCYTE 1 % (0-0); NEUTROPHIL 81 % (50-75); TOTAL CELLS COUNTED 100
[2017-01-21] MEDS: Potassium Chloride 20 mEq ER Tab PO SCH (10:14)
[2017-01-21] MEDS: Ciprofloxacin 400mg/200ml D5W 400 MG/200 ML BAG IVPB SCH ×2 (10:14→21:18)
[2017-01-21] MEDS: Saccharomyces Boulardi 250 mg Cap PO SCH ×2 (10:14→18:23)
--- NOTE | 2017-01-21 11:50 | CARD ---
APPROVED REPORT EKG Measurement Heart [id number] <Conclusion> Sinus tachycardia with premature atrial complexes Otherwise normal ECG
[2017-01-21 13:02] LABS: CCP IGG 18 Units (<20)
--- NOTE | 2017-01-21 15:00 | CP.PCM.PN ---
Addendum entered and electronically signed by Nuha Kelly 01/21/17 16:50 : PE: ENT: dry mucous membranes, dry eyes Original Note: <Nuha Kelly - Last Filed: 01/21/17 16:48> Subjective - Date & Time of Evaluation Date of Evaluation: 01/21/17 Time of Evaluation: 07:00 - Subjective Subjective: PGY-1 Medicine Note, Dr. Green's Service Patient seen and examined at bedside and in no acute distress. Patient had a large bowel movement yesterday after enema and a bowel movement this morning. Patient says she is feeling okay today. Patient denies any headache, shortness of breath, chest pain, abdominal pain, nausea, or vomiting. Objective - Vital Signs/Intake and Output Vital Signs (last 24 hours): Temp Pulse Resp BP Pulse Ox 97.7 F 109 H 18 125/74 98 01/21/17 00:29 01/21/17 00:29 01/21/17 00:29 01/21/17 00:29 01/21/17 00:29 Intake and Output: 01/21/17 01/21/17 06:59 18:59 Intake Total 1320 Output Total 1150 Balance 170 - Medications Medications: Current Medications Acetaminophen (Tylenol 325mg Tab) 650 mg PO Q6 PRN PRN Reason: Pain, Mild (1-3) Last Admin: 01/19/17 02:49 Dose: 650 mg Docusate Sodium (Colace) 100 mg PO TID [facility] Last Admin: 01/21/17 14:44 Dose: 100 mg Sodium Chloride (Sodium Chloride 0.9%) 1,000 mls @ 75 mls/hr IV .[id number] [facility] Last Admin: 01/17/17 12:35 Dose: Not Given Ciprofloxacin (Cipro 400mg/200ml Dsw) 400 mg in 200 mls @ 133 mls/hr IVPB Q12H [facility] Last Admin: 01/21/17 10:14 Dose: 133 mls/hr Ondansetron HCl (Zofran Inj) 4 mg IVP Q6H PRN PRN Reason: Nausea/Vomiting Pantoprazole Sodium (Protonix Inj) 40 mg IVP DAILY [facility] Last Admin: 01/21/17 10:13 Dose: 40 mg Potassium Chloride (K-Dur 20 Meq Er Tab) 40 meq PO DAILY [facility] Last Admin: 01/21/17 10:14 Dose: 40 meq Prednisone (Prednisone Tab) 20 mg PO DAILY [facility] Stop: 01/23/17 10:00 Last Admin: 01/21/17 10:14 Dose: 20 mg Saccharomyces Boulardii (Florastor) 250 mg PO BID [facility] Last Admin: 01/21/17 10:14 Dose: 250 mg - Labs Labs: 01/21/17 08:16 01/21/17 08:16 - Constitutional Appears: Non-toxic, No Acute Distress - Head Exam Head Exam: ATRAUMATIC, NORMAL INSPECTION, NORMOCEPHALIC - Eye Exam Eye Exam: EOMI, Normal appearance - ENT Exam ENT Exam: Mucous Membranes Moist - Respiratory Exam Respiratory Exam: Clear to Ausculation Bilateral, NORMAL BREATHING PATTERN. absent: Rales, Rhonchi, Wheezes, Respiratory Distress, Stridor - Cardiovascular Exam Cardiovascular Exam: REGULAR RHYTHM, RRR, +S1, +S2 - GI/Abdominal Exam GI & Abdominal Exam: Soft, Normal Bowel Sounds. absent: Tenderness - Extremities Exam Extremities Exam: Full ROM, Normal Inspection. absent: Pedal Edema - Neurological Exam Neurological Exam: Alert, Awake, Oriented x3 - Psychiatric Exam Psychiatric exam: Normal Affect, Normal Mood - Skin Skin Exam: Intact, Normal Color, Warm Assessment and Plan - Assessment and Plan (Free Text) Assessment: Hyponatremia; resolving * Nephrology Consult Dr. Preston on board * Na on admission 125; Low osmolarity: 275 Urine osmolality: 288, Urine sodium: 76-->hypovolemic hyponatremia * Patient is on water restriction. * 01/16 CT Head: No acute intracranial hemorrhage. chronic white matter and basal nuclei ischemic changes. generalized volume loss partially empty sella * Patient was fluid restricted patient given her drinking excessive picture--> but patient's values do not reflect SIADH/primary polydipsia-->will start NS 75cc/hr at 11pm * 01/19: Urine osmolality 604 (07:44) 540 (19:34), Urine Sodium 163 (07:44) 94 ( 19:34), Serum Osmolality 272 (6am) UTI * Urinalysis: Urine WBC 386, Urine RBC 135, 3+ Urine blood, 1+ Protein, <1 squamous epithelial cells * Urine Cx: E. coli * Cipro 500 mg daily 3 days (Day 3/, 01/21) * f/u UA and Urine Culture (01/22) Constipation * patient had bowel movement on 01/20 after enema and 01/21 * Colace 01/19 * Dulcolax today 01/20 Rheumatoid arthritis * continue with home med tylenol 650mg PO Q6H PRN pain * Motrin 400mg PO Q8H PRN pain moderate * CCP IgG : 18 Pancytopenia History of Iron Deficiency Anemia Thrombocytopenia * Patient has had GI workup with Dr. Calero/Dr. Peña group * Colonoscopy (12/25/16): non-bleeding internal hemorrhoids * Endoscopy (12/25/16): normal esophagus. 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 Mohan Tipton x 10 days, last dose on 01/20 * D/C Heparin * HIT antibodies ordered- negative * Serotonin release assay ordered; awaiting results Reticular Opacities in Lungs * bibasalar rales and wheezing on ausc; denies dyspnea; breathing comfortably on room air; no hx of smoking * CXR: non-specific diffuse reticular opacities in the lungs more prominent at the lung bases and in upper lobes R>L. Mild hyperinflation of the lungs. * 01/16 CT Chest w/o contrast: underlying emphysema with extensive the interstitial fibrosis with more confluent opacities in the lower lung johnson. R/ o infiltrates. B/l lower love cylindrical type bronchiectat changes. Multiplelower love pneumatoceles and smal to medium size bled changes. Biapical and bibasilar pleural thickenng with adjacent parenchymal scarring * Patient is on prednisone taper, will start advair after prednisone taper finished, DC with Bernardo Robin 25/100 Hematuria * Microscopic hematuria of unclear etiology; glomerular v tract; * check random urine microalbumin, protein and creatinine * urine cytology * RA panel Positive High * SHERRIE 6 Profile positive H * SHERRIE titer 1:160 H * SHERRIE pattern is homogenous Sjogren's Syndrome * Reports dry eyes, dry mouth, in spite of excessive water intake * Order for ESR, CRP, SHERRIE, SSA and SSB positive * Patient appears to have heliotrope rash-->ordered for aldolase * SSA >8.0 * SSB Ab positive * complement C3 <40 * complement C4 <8.0 Prophylactic measure * GI: protonix 40mg po daily * DVT: heparin 5000u sc Q8H, On hold due to pancytopenia. * Diet: regular diet * con't home meds iron and d/c B12 * PT: Subacute rehab * OT: follow up * PMD: Dr. Dejesus in [place] <Raheem Green - Last Filed: 01/21/17 17:45> Objective - Vital Signs/Intake and Output Vital Signs (last 24 hours): Temp Pulse Resp BP Pulse Ox 98.7 F 107 H 20 107/64 96 01/21/17 15:30 01/21/17 15:30 01/21/17 15:30 01/21/17 15:30 01/21/17 15:30 Intake and Output: 01/21/17 01/21/17 06:59 18:59 Intake Total 1320 Output Total 1150 Balance 170 - Medications Medications: Current Medications Acetaminophen (Tylenol 325mg Tab) 650 mg PO Q6 PRN PRN Reason: Pain, Mild (1-3) Last Admin: 01/19/17 02:49 Dose: 650 mg Docusate Sodium (Colace) 100 mg PO TID [facility] Last Admin: 01/21/17 14:44 Dose: 100 mg Sodium Chloride (Sodium Chloride 0.9%) 1,000 mls @ 75 mls/hr IV .[id number] [facility] Last Admin: 01/17/17 12:35 Dose: Not Given Ciprofloxacin (Cipro 400mg/200ml Dsw) 400 mg in 200 mls @ 133 mls/hr IVPB Q12H [facility] Last Admin: 01/21/17 10:14 Dose: 133 mls/hr Ondansetron HCl (Zofran Inj) 4 mg IVP Q6H PRN PRN Reason: Nausea/Vomiting Pantoprazole Sodium (Protonix Inj) 40 mg IVP DAILY [facility] Last Admin: 01/21/17 10:13 Dose: 40 mg Potassium Chloride (K-Dur 20 Meq Er Tab) 40 meq PO DAILY [facility] Last Admin: 01/21/17 10:14 Dose: 40 meq Prednisone (Prednisone Tab) 20 mg PO DAILY [facility] Stop: 01/23/17 10:00 Last Admin: 01/21/17 10:14 Dose: 20 mg Saccharomyces Boulardii (Florastor) 250 mg PO BID [facility] Last Admin: 01/21/17 10:14 Dose: 250 mg - Labs Labs: 01/21/17 08:16 01/21/17 08:16 Attending/Attestation - Attestation I have personally seen and examined this patient.: Yes I have fully participated in the care of the patient.: Yes I have reviewed all pertinent clinical information, including history, physical exam and plan: Yes Notes (Text): 01/21/17 17:43 Patient was seen and examined at 4 PM 01/21/17. Exam, assessment and plan were gone over with the resident. Repeat Urine Culture ordered for today 01/21/17 and if negative then will discharge patient to home. Confirmed with Design Coordinator Nithya that patient does not qualify for [facility] because of no insurance. Medicine Team will speak with PT to make sure patient can ambulate safely and then discharge to home. Raheem Green D.O.
[2017-01-21 16:40] LABS: CCP IGG 16 Units (<20)
[2017-01-21 20:00] LABS: Interpretation Positive (Negative); RNP Interpretation Positive (Negative)
--- NOTE | 2017-01-22 05:15 | CP.PCM.PN ---
Subjective - Date & Time of Evaluation Date of Evaluation: 01/21/17 Time of Evaluation: 13:00 - Subjective Subjective: Patient reports lethargy and body pains have improved; on further history, denies any decreased appetite of late despite weight loss; Objective - Vital Signs/Intake and Output Vital Signs (last 24 hours): Temp Pulse Resp BP Pulse Ox 98.5 F 97 H 20 124/71 98 01/22/17 04:09 01/22/17 04:09 01/22/17 04:09 01/22/17 04:09 01/22/17 04:09 Intake and Output: 01/21/17 01/22/17 18:59 06:59 Intake Total 520 Output Total 450 Balance 70 - Medications Medications: Current Medications Acetaminophen (Tylenol 325mg Tab) 650 mg PO Q6 PRN PRN Reason: Pain, Mild (1-3) Last Admin: 01/19/17 02:49 Dose: 650 mg Docusate Sodium (Colace) 100 mg PO TID [facility] Last Admin: 01/21/17 18:23 Dose: 100 mg Sodium Chloride (Sodium Chloride 0.9%) 1,000 mls @ 75 mls/hr IV .[id number] [facility] Last Admin: 01/17/17 12:35 Dose: Not Given Ciprofloxacin (Cipro 400mg/200ml Dsw) 400 mg in 200 mls @ 133 mls/hr IVPB Q12H [facility] Last Admin: 01/21/17 21:18 Dose: 133 mls/hr Ondansetron HCl (Zofran Inj) 4 mg IVP Q6H PRN PRN Reason: Nausea/Vomiting Pantoprazole Sodium (Protonix Inj) 40 mg IVP DAILY [facility] Last Admin: 01/21/17 10:13 Dose: 40 mg Potassium Chloride (K-Dur 20 Meq Er Tab) 40 meq PO DAILY [facility] Last Admin: 01/21/17 10:14 Dose: 40 meq Prednisone (Prednisone Tab) 20 mg PO DAILY [facility] Stop: 01/23/17 10:00 Last Admin: 01/21/17 10:14 Dose: 20 mg Saccharomyces Boulardii (Florastor) 250 mg PO BID [facility] Last Admin: 01/21/17 18:23 Dose: 250 mg - Labs Labs: 01/21/17 08:16 01/21/17 08:16 - Constitutional Appears: Non-toxic, No Acute Distress - Head Exam Head Exam: NORMAL INSPECTION - Eye Exam Eye Exam: Normal appearance - ENT Exam ENT Exam: Mucous Membranes Moist - Respiratory Exam Respiratory Exam: absent: Respiratory Distress Additional comments: bilateral extensive rales; - Cardiovascular Exam Cardiovascular Exam: RRR, +S1, +S2 - GI/Abdominal Exam GI & Abdominal Exam: Soft. absent: Distended, Tenderness - Exam Exam: absent: Bladder Distension - Extremities Exam Additional comments: no leg edema; - Neurological Exam Neurological Exam: Alert, Awake - Psychiatric Exam Psychiatric exam: Normal Affect, Normal Mood - Skin Skin Exam: Warm. 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, likely from ongoing pulm pathology (chest CT consistent with pulm fibrosis per pulm consult); -fluid restriction to < 1.5L per day Status: Acute (2) Hematuria Assessment & Plan: With preserved renal function and only microalbuminuria; will repeat UA and urine microalbumin, protein and creat measurements; should be followed up as outpatient; Status: Acute (3) Tachycardia Status: Acute (4) Anemia Assessment & Plan: Due to chronic disease, heme service saying iron stores are adequate; monitor; Status: Chronic (5) Rheumatoid arthritis Assessment & Plan: Patient with an underlying systemic rheumatologic diagnosis, possibly superimposed on RA; needs outpatient workup; sending anti-DS DNA and anti-sm Ab ; improvement of symptoms with prednisone but needs mcc management; Status: Acute
[2017-01-22 06:26] LABS: BASO % 0.1 % (0.0-2.0); EOS % 0.5 % (0.0-4.0); HEMATOCRIT 24.6 % (34.0-47.0); LYMPH # 0.5 K/uL (1.0-4.3); LYMPH % 9.6 % (20.0-40.0); MEAN CELL VOLUME 79.9 fL (81.0-99.0); MEAN CORPUSCULAR HGB CONC 35.1 g/dL (33.0-37.0); MEAN PLATELET VOLUME 7.4 fL (7.2-11.7); MONO # 0.4 K/uL (0.0-0.8); MONO % 8.9 % (0.0-10.0); NRBC % 0.1 % (0.0-2.0); PLATELET COUNT 125 K/uL (130-400); RED CELL DISTRIBUTION WIDTH 17.9 % (11.5-14.5)
[2017-01-22 07:31] LABS: CHLORIDE 98 mmol/L (98-107); POTASSIUM 3.9 mmol/L (3.6-5.2); SODIUM 124 mmol/L (132-148)
[2017-01-22 07:33] LABS: ALB/GLOB RATIO 0.4 (1.0-2.1); ALKALINE PHOSPHATASE 70 U/L (38-126); AST/SGOT 62 U/L (14-36); BILIRUBIN,TOTAL 0.5 mg/dL (0.2-1.3); BLOOD UREA NITROGEN 15 mg/dL (7-17); CARBON DIOXIDE 20 mmol/L (22-30); GFR AFRICAN-AMERICAN > 60; TOTAL PROTEIN 7.7 g/dL (6.3-8.3)
[2017-01-22 07:34] LABS: ALT/SGPT 36 U/L (9-52); CALCIUM 7.8 mg/dl (8.6-10.4); GLUCOSE,RANDOM 77 mg/dL (65-105)
[2017-01-22 08:31] LABS: EOSINOPHIL 2 % (0-4); NEUTROPHIL 88 % (50-75); TOTAL CELLS COUNTED 100
[2017-01-22] MEDS: Saccharomyces Boulardi 250 mg Cap PO SCH ×2 (09:55→17:53)
[2017-01-22] MEDS: Potassium Chloride 20 mEq ER Tab PO SCH (09:55)
[2017-01-22] MEDS: Ciprofloxacin 400mg/200ml D5W 400 MG/200 ML BAG IVPB SCH ×2 (09:56→21:44)
[2017-01-22] MEDS ORDERED: Sodium Chloride 0.9% 1,000 ML IV ONE (10:39)
--- NOTE | 2017-01-22 11:02 | CP.PCM.PN ---
<Nuha Kelly - Last Filed: 01/22/17 14:47> Subjective - Date & Time of Evaluation Date of Evaluation: 01/22/17 Time of Evaluation: 07:00 - Subjective Subjective: PGY1- Medicine Note- Dr. Green's Service Patient seen and examined and in no acute distress. Patient had an episode of chest pressure early this morning and IVY was obtained and negative. Patient says she still feels some pressure on the right side of her chest, but it is decreasing. Patient admits that she is very tired and slightly short of breath. Patient denies any abdominal pain, nausea, vomiting, constipation, or diarrhea. Objective - Vital Signs/Intake and Output Vital Signs (last 24 hours): Temp Pulse Resp BP Pulse Ox 98.2 F 107 H 20 125/72 96 01/22/17 08:07 01/22/17 08:07 01/22/17 08:07 01/22/17 08:07 01/22/17 08:07 Intake and Output: 01/22/17 01/22/17 06:59 18:59 Intake Total 520 Output Total 450 Balance 70 - Medications Medications: Current Medications Acetaminophen (Tylenol 325mg Tab) 650 mg PO Q6 PRN PRN Reason: Pain, Mild (1-3) Last Admin: 01/19/17 02:49 Dose: 650 mg Docusate Sodium (Colace) 100 mg PO TID [facility] BEDS [facility] Last Admin: 01/22/17 09:55 Dose: 100 mg Sodium Chloride (Sodium Chloride 0.9%) 1,000 mls @ 75 mls/hr IV .[id number] [facility] 234 [facility]S [facility] Last Admin: 01/17/17 12:35 Dose: Not Given Ciprofloxacin (Cipro 400mg/200ml Dsw) 400 mg in 200 mls @ 133 mls/hr IVPB Q12H [facility] 234 BEDS [facility] Last Admin: 01/22/17 09:56 Dose: 133 mls/hr Sodium Chloride (Sodium Chloride 0.9%) 1,000 mls @ 250 mls/hr IV .Q4H [facility] Stop: 01/22/17 14:38 Ondansetron HCl (Zofran Inj) 4 mg IVP Q6H PRN PRN Reason: Nausea/Vomiting Pantoprazole Sodium (Protonix Inj) 40 mg IVP DAILY [facility] 234 [facility]S [facility] Last Admin: 01/22/17 09:55 Dose: 40 mg Potassium Chloride (K-Dur 20 Meq Er Tab) 40 meq PO DAILY [facility] 234 [facility] Last Admin: 01/22/17 09:55 Dose: 40 meq Prednisone (Prednisone Tab) 20 mg PO DAILY [facility] 234 [facility] Stop: 01/23/17 10:00 Last Admin: 01/22/17 09:55 Dose: 20 mg Saccharomyces Boulardii (Florastor) 250 mg PO BID [facility] 234 [facility] Last Admin: 01/22/17 09:55 Dose: 250 mg - Labs Labs: 01/22/17 06:20 01/22/17 06:20 - Constitutional Appears: Non-toxic, No Acute Distress - Head Exam Head Exam: ATRAUMATIC, NORMAL INSPECTION, NORMOCEPHALIC - Eye Exam Eye Exam: EOMI, Normal appearance - ENT Exam ENT Exam: Mucous Membranes Dry - Neck Exam Neck Exam: Full ROM. absent: Tenderness - Respiratory Exam Respiratory Exam: Decreased Breath Sounds, Clear to Ausculation Bilateral, NORMAL BREATHING PATTERN - Cardiovascular Exam Cardiovascular Exam: REGULAR RHYTHM, RRR. absent: Gallop, Rubs, Murmur - GI/Abdominal Exam GI & Abdominal Exam: Soft, Normal Bowel Sounds - Extremities Exam Extremities Exam: Full ROM, Normal Inspection. absent: Pedal Edema - Neurological Exam Neurological Exam: Alert, Awake, Oriented x3 - Psychiatric Exam Psychiatric exam: Normal Affect, Normal Mood - Skin Skin Exam: Intact, Normal Color, Warm Assessment and Plan - Assessment and Plan (Free Text) Assessment: Hyponatremia; resolving * Nephrology Consult Dr. Preston on board * Na on admission 125; Low osmolarity: 275 Urine osmolality: 288, Urine sodium: 76-->hypovolemic hyponatremia * Patient is on water restriction. * 01/16 CT Head: No acute intracranial hemorrhage. chronic white matter and basal nuclei ischemic changes. generalized volume loss partially empty sella * Patient was fluid restricted patient given her drinking excessive picture--> but patient's values do not reflect SIADH/primary polydipsia-->will start NS 75cc/hr at 11pm * 01/19: Urine osmolality 604 (07:44) 540 (19:34), Urine Sodium 163 (07:44) 94 ( 19:34), Serum Osmolality 272 (6am) UTI * Urinalysis: Urine WBC 386, Urine RBC 135, 3+ Urine blood, 1+ Protein, <1 squamous epithelial cells * Urine Cx: E. 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 Dewey, patient should be started on Plaquenil as an outpatient after visual field testing by an aerographer Constipation * patient had bowel movement on 01/20 after enema and 01/21 * Colace 01/19 * Dulcolax today 01/20 Rheumatoid arthritis * Rheumatoid Arthritis panel positive * continue with home med tylenol 650mg PO Q6H PRN pain * Motrin 400mg PO Q8H PRN pain moderate * CCP IgG : 18 Pancytopenia History of Iron Deficiency Anemia Thrombocytopenia * Patient has had GI workup with Dr. Calero/Dr. Peña group * Colonoscopy (12/25/16): non-bleeding internal hemorrhoids * Endoscopy (12/25/16): normal esophagus. 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 Preston Ferrlecit x 10 days, last dose on 01/20 * D/C Heparin * HIT antibodies ordered- negative * Serotonin release assay ordered; awaiting results Reticular Opacities in Lungs * bibasalar rales and wheezing on ausc; denies dyspnea; breathing comfortably on room air; no hx of smoking * CXR: non-specific diffuse reticular opacities in the lungs more prominent at the lung bases and in upper lobes R>L. Mild hyperinflation of the lungs. * 01/16 CT Chest w/o contrast: underlying emphysema with extensive the interstitial fibrosis with more confluent opacities in the lower lung johnson. R/ o infiltrates. B/l lower love cylindrical type bronchiectat changes. Multiple lower love pneumatoceles and small to medium size bled changes. Biapical and bibasilar pleural thickenng with adjacent parenchymal scarring * Patient to continue on prednisone, will start advair after prednisone taper finished, DC with Bernardo Robin 25/100 Hematuria * Microscopic hematuria of unclear etiology; glomerular v tract; * check random urine microalbumin, protein and creatinine * f/u urine cytology * RA panel Positive High * SHERRIE 6 Profile positive H * SHERRIE titer 1:160 H * SHERRIE pattern is homogenous Sjogren's Syndrome * Reports dry eyes, dry mouth, in spite of excessive water intake * SHERRIE, SSA and SSB positive * Patient appears to have heliotrope rash-->ordered for aldolase * SSA >8.0 * SSB Ab positive * complement C3 <40 * complement C4 <8.0 Prophylactic measure * GI: protonix 40mg po daily * DVT: heparin 5000u sc Q8H, On hold due to pancytopenia. * Diet: regular diet * con't home meds iron and d/c B12 * PT: patient to be discharged with walker * OT: follow up * PMD: Dr. Dejesus in [place] <Raheem Green - Last Filed: 01/22/17 16:14> Objective - Vital Signs/Intake and Output Vital Signs (last 24 hours): Temp Pulse Resp BP Pulse Ox 98.2 F 107 H 20 125/72 96 01/22/17 08:07 01/22/17 08:07 01/22/17 08:07 01/22/17 08:07 01/22/17 08:07 Intake and Output: 01/22/17 01/22/17 06:59 18:59 Intake Total 520 1540 Output Total 450 100 Balance 70 1440 - Medications Medications: Current Medications Acetaminophen (Tylenol 325mg Tab) 650 mg PO Q6 PRN PRN Reason: Pain, Mild (1-3) Last Admin: 01/19/17 02:49 Dose: 650 mg Docusate Sodium (Colace) 100 mg PO TID [facility]S [facility]CLUDE 234 BEDS AT [facility] Last Admin: 01/22/17 13:34 Dose: 100 mg Sodium Chloride (Sodium Chloride 0.9%) 1,000 mls @ 75 mls/hr IV .[id number] COUNTS INCLUDE 234 BEDS AT [facility] Last Admin: 01/17/17 12:35 Dose: Not Given Ciprofloxacin (Cipro 400mg/200ml Dsw) 400 mg in 200 mls @ 133 mls/hr IVPB Q12H [facility]S [facility]CLUDE 234 BEDS AT [facility] Last Admin: 01/22/17 09:56 Dose: 133 mls/hr Ondansetron HCl (Zofran Inj) 4 mg IVP Q6H PRN PRN Reason: Nausea/Vomiting Pantoprazole Sodium (Protonix Inj) 40 mg IVP DAILY [facility] 234 BEDS [facility] Last Admin: 01/22/17 09:55 Dose: 40 mg Potassium Chloride (K-Dur 20 Meq Er Tab) 40 meq PO DAILY [facility] 234 BEDS [facility] Last Admin: 01/22/17 09:55 Dose: 40 meq Prednisone (Prednisone Tab) 20 mg PO DAILY [facility]CLUDE 234 BEDS [facility] Stop: 01/23/17 10:00 Last Admin: 01/22/17 09:55 Dose: 20 mg Saccharomyces Boulardii (Florastor) 250 mg PO BID [facility]CLUDE 234 BEDS AT [facility] Last Admin: 01/22/17 09:55 Dose: 250 mg - Labs Labs: 01/22/17 06:20 01/22/17 06:20 Attending/Attestation - Attestation I have personally seen and examined this patient.: Yes I have fully participated in the care of the patient.: Yes I have reviewed all pertinent clinical information, including history, physical exam and plan: Yes Notes (Text): 01/22/17 16:12 Patient was seen and examined at 10:45 AM 01/22/17. Exam, assessment and plan were gone over with the resident. I spoke with Electrical And Instrument Technician as mentioned above. Raheem Green D.O.
--- NOTE | 2017-01-22 12:21 | CARD ---
APPROVED REPORT EKG Measurement Heart [id number] OK 126P [id number] <Conclusion> Suspect arm lead reversal, interpretation assumes no reversal Sinus tachycardia Lateral infarct, age undetermined Abnormal ECG
[2017-01-22 12:42] LABS: RBC URINE 220 /hpf (0-3); URINE BACTERIA RARE (<OCC); URINE BILIRUBIN NEGATIVE (NEGATIVE); URINE BLOOD 3+ (NEGATIVE); URINE COLOR Yellow (YELLOW); URINE GLUCOSE (UA) NORMAL (Normal); URINE KETONE NEGATIVE (NEGATIVE); URINE LEUKOCYTE ESTERASE NEG Leu/uL (Negative); URINE PROTEIN 1+ mg/dL (NEGATIVE); URINE UROBILINOGEN NORMAL mg/dL (0.2-1.0); WBC URINE 3 /hpf (0-5)
[2017-01-22 17:12] LABS: CHLORIDE 98 mmol/L (98-107); POTASSIUM 4.7 mmol/L (3.6-5.2); SODIUM 122 mmol/L (132-148)
[2017-01-22 17:15] LABS: CARBON DIOXIDE 18 mmol/L (22-30); GFR AFRICAN-AMERICAN > 60
[2017-01-22 17:16] LABS: BLOOD UREA NITROGEN 14 mg/dL (7-17); CALCIUM 7.1 mg/dl (8.6-10.4); GLUCOSE,RANDOM 112 mg/dL (65-105)
[2017-01-22 18:17] LABS: UFH SRA RESULT Indeterminate (Negative)
[2017-01-22] MEDS ORDERED: Tolvaptan 15 MG TAB PO ONE (18:34)
--- NOTE | 2017-01-22 18:37 | CP.PCM.PN ---
Subjective - Date & Time of Evaluation Date of Evaluation: 01/22/17 Time of Evaluation: 14:30 - Subjective Subjective: Patient again reporting feeling weak since last night; having difficulty ambulating; Objective - Vital Signs/Intake and Output Vital Signs (last 24 hours): Temp Pulse Resp BP Pulse Ox 98.5 F 106 H 20 116/73 97 01/22/17 15:20 01/22/17 15:20 01/22/17 15:20 01/22/17 15:20 01/22/17 15:20 Intake and Output: 01/22/17 01/22/17 06:59 18:59 Intake Total 520 1540 Output Total 450 100 Balance 70 1440 - Medications Medications: Current Medications Acetaminophen (Tylenol 325mg Tab) 650 mg PO Q6 PRN PRN Reason: Pain, Mild (1-3) Last Admin: 01/19/17 02:49 Dose: 650 mg Docusate Sodium (Colace) 100 mg PO TID [facility] Last Admin: 01/22/17 17:53 Dose: 100 mg Sodium Chloride (Sodium Chloride 0.9%) 1,000 mls @ 75 mls/hr IV .[id number] [facility] Last Admin: 01/17/17 12:35 Dose: Not Given Ciprofloxacin (Cipro 400mg/200ml Dsw) 400 mg in 200 mls @ 133 mls/hr IVPB Q12H [facility] Last Admin: 01/22/17 09:56 Dose: 133 mls/hr Ondansetron HCl (Zofran Inj) 4 mg IVP Q6H PRN PRN Reason: Nausea/Vomiting Pantoprazole Sodium (Protonix Inj) 40 mg IVP DAILY [facility] Last Admin: 01/22/17 09:55 Dose: 40 mg Potassium Chloride (K-Dur 20 Meq Er Tab) 40 meq PO DAILY [facility] Last Admin: 01/22/17 09:55 Dose: 40 meq Prednisone (Prednisone Tab) 20 mg PO DAILY [facility] Stop: 01/23/17 10:00 Last Admin: 01/22/17 09:55 Dose: 20 mg Saccharomyces Boulardii (Florastor) 250 mg PO BID [facility] Last Admin: 01/22/17 17:53 Dose: 250 mg - Labs Labs: 01/22/17 06:20 01/22/17 16:58 - Constitutional Appears: Non-toxic, No Acute Distress - Head Exam Head Exam: NORMAL INSPECTION - Eye Exam Eye Exam: Normal appearance - ENT Exam ENT Exam: Mucous Membranes Moist - Respiratory Exam Respiratory Exam: absent: Respiratory Distress Additional comments: bilateral basal rales; - Cardiovascular Exam Cardiovascular Exam: RRR, +S1, +S2 - GI/Abdominal Exam GI & Abdominal Exam: Soft. absent: Distended - Exam Exam: absent: Bladder Distension - Extremities Exam Additional comments: no/minimal leg edema; - Neurological Exam Neurological Exam: Alert, Awake Additional comments: unsteady when standing without support; - Psychiatric Exam Psychiatric exam: Normal Affect, Normal Mood - Skin Skin Exam: Warm. absent: Cyanosis Assessment and Plan (1) Hyponatremia Assessment & Plan: May have had an element of hypovolemia but this has been corrected; no orthostatic changes on my exam today; serum Na dropping today despite fluid restriction; further worsening seen with IVF bolus; urine osm high; consistent with SIADH, and as pointed out by primary attending may be due to patient having partially empty sella on head CT; -giving dose of tolvaptan 15 mg today -start salt tabs 2g q8h -continue fluid restriction to <1.5L per day Status: Acute (2) Hematuria Assessment & Plan: Marked hematuria on UA, possibly due to bloom; didn't have much albuminuria on recent labs but will repeat; Status: Acute (3) Tachycardia Status: Acute (4) Anemia Status: Chronic (5) Rheumatoid arthritis Assessment & Plan: Possible mixed connective tissue disease; anti-DS DNA and anti-sm AB also sent; started on prednisone; needs close outpatient rheumatology f/u; Status: Acute
[2017-01-22] MEDS: Aritificial Tears (15ml) OU PRN (21:44)
[2017-01-23] MEDS: Saccharomyces Boulardi 250 mg Cap PO SCH ×2 (10:16→18:23)
[2017-01-23] MEDS: Ciprofloxacin 400mg/200ml D5W 400 MG/200 ML BAG IVPB SCH ×2 (10:27→22:30)
[2017-01-23] MEDS: Potassium Chloride 20 mEq ER Tab PO SCH (10:28)
[2017-01-23] MEDS: Aritificial Tears (15ml) OU PRN ×2 (11:51→18:25)
[2017-01-23 11:54] LABS: BASO % 0.1 % (0.0-2.0); EOS % 0.1 % (0.0-4.0); HEMATOCRIT 25.3 % (34.0-47.0); LYMPH # 0.6 K/uL (1.0-4.3); LYMPH % 7.6 % (20.0-40.0); MEAN CELL VOLUME 80.3 fL (81.0-99.0); MEAN CORPUSCULAR HEMOGLOBIN 27.2 pg (27.0-31.0); MEAN CORPUSCULAR HGB CONC 33.9 g/dL (33.0-37.0); MEAN PLATELET VOLUME 7.4 fL (7.2-11.7); MONO # 0.5 K/uL (0.0-0.8); MONO % 7.1 % (0.0-10.0); PLATELET COUNT 137 K/uL (130-400); RED CELL DISTRIBUTION WIDTH 18.4 % (11.5-14.5); WHITE BLOOD COUNT 7.3 K/uL (4.8-10.8)
[2017-01-23 12:11] LABS: CHLORIDE 98 mmol/L (98-107)
[2017-01-23 12:12] LABS: SODIUM 126 mmol/L (132-148)
[2017-01-23 12:14] LABS: ALB/GLOB RATIO 0.5 (1.0-2.1); ALKALINE PHOSPHATASE 68 U/L (38-126); AST/SGOT 61 U/L (14-36); BILIRUBIN,TOTAL 0.5 mg/dL (0.2-1.3); CARBON DIOXIDE 19 mmol/L (22-30); GFR AFRICAN-AMERICAN > 60; TOTAL PROTEIN 7.8 g/dL (6.3-8.3)
[2017-01-23 12:15] LABS: ALT/SGPT 36 U/L (9-52); BLOOD UREA NITROGEN 13 mg/dL (7-17); CALCIUM 7.7 mg/dl (8.6-10.4); GLUCOSE,RANDOM 122 mg/dL (65-105); MAGNESIUM 1.6 mg/dL (1.6-2.3); PHOSPHOROUS 3.2 mg/dL (2.5-4.5)
[2017-01-23 12:21] LABS: CREATININE, RANDOM URINE 28.3 mg/dL
[2017-01-23 12:24] LABS: NEUTROPHIL 84 % (50-75); TOTAL CELLS COUNTED 100
[2017-01-23 12:32] LABS: POTASSIUM 3.7 mmol/L (3.6-5.2)
--- NOTE | 2017-01-23 12:53 | RAD ---
HISTORY: dyspnea COMPARISON: Chest 01/07/2017. FINDINGS: LUNGS: Chronic intra interstitial pulmonary changes are stable with diminished probable superimposed limited airspace disease at the right base with none on the left. PLEURA: No significant pleural effusion identified, no pneumothorax apparent. CARDIOVASCULAR: Normal. OSSEOUS STRUCTURES: No significant abnormalities. VISUALIZED UPPER ABDOMEN: Normal. OTHER FINDINGS: None. IMPRESSION: Improving airspace disease at the right greater than left lung base with chronic underlying interstitial pulmonary changes again noted bilaterally. Cardiomediastinal silhouette is stable.
--- NOTE | 2017-01-23 17:06 | CP.PCM.PN ---
<Ivelisse Mcgee - Last Filed: 01/23/17 17:07> Subjective - Date & Time of Evaluation Date of Evaluation: 01/23/17 Time of Evaluation: 17:01 - Subjective Subjective: Internal Medicine Progress Note for Dr. Green Patient seen and examined at bedside. No acute events overnight. Patient states she feels okay. Patient admits to feeling a little tired. Patient denies Chest pain, Shortness of breath, difficulty urinating. Patient's daughter from [place], [place] flew in to see the patient. It was discussed in person with Dr. Green and explained the autoimmune disorders and the need for nephrology, opthalmalogy, and rheumatology follow up outpatient and in clinic. Objective - Vital Signs/Intake and Output Vital Signs (last 24 hours): Temp Pulse Resp BP Pulse Ox 98.0 F 103 H 20 114/74 97 01/23/17 16:41 01/23/17 16:41 01/23/17 16:41 01/23/17 16:41 01/23/17 16:41 Intake and Output: 01/23/17 01/23/17 06:59 18:59 Intake Total 720 700 Output Total 900 300 Balance -180 400 - Medications Medications: Current Medications Acetaminophen (Tylenol 325mg Tab) 650 mg PO Q6 PRN PRN Reason: Pain, Mild (1-3) Last Admin: 01/23/17 11:23 Dose: 650 mg Artificial Tears (Artificial Tears) 0 ml OU TID PRN PRN Reason: Dry eyes Last Admin: 01/23/17 11:51 Dose: 1 drop Docusate Sodium (Colace) 100 mg PO TID [facility] Last Admin: 01/23/17 13:15 Dose: 100 mg Furosemide (Lasix) 20 mg PO DAILY [facility] Last Admin: 01/23/17 13:15 Dose: 20 mg Sodium Chloride (Sodium Chloride 0.9%) 1,000 mls @ 75 mls/hr IV .[id number] [facility] Last Admin: 01/17/17 12:35 Dose: Not Given Ciprofloxacin (Cipro 400mg/200ml Dsw) 400 mg in 200 mls @ 133 mls/hr IVPB Q12H [facility] Last Admin: 01/23/17 10:27 Dose: 133 mls/hr Ondansetron HCl (Zofran Inj) 4 mg IVP Q6H PRN PRN Reason: Nausea/Vomiting Pantoprazole Sodium (Protonix Inj) 40 mg IVP DAILY [facility] Last Admin: 01/23/17 10:15 Dose: 40 mg Potassium Chloride (K-Dur 20 Meq Er Tab) 40 meq PO DAILY [facility] Last Admin: 01/23/17 10:28 Dose: 40 meq Saccharomyces Boulardii (Florastor) 250 mg PO BID [facility] Last Admin: 01/23/17 10:16 Dose: 250 mg Sodium Chloride (Sodium Chloride Tab) 2 gm PO Q8H [facility] Last Admin: 01/23/17 13:15 Dose: 2 gm - Labs Labs: 01/23/17 11:42 01/23/17 11:42 - Constitutional Appears: Non-toxic - Head Exam Head Exam: NORMAL INSPECTION Additional comments: tight skin at the lower jaw - Eye Exam Eye Exam: EOMI. absent: Normal appearance Additional comments: heliotrope rash - Respiratory Exam Respiratory Exam: Accessory Muscle Use, Rhonchi, NORMAL BREATHING PATTERN - Cardiovascular Exam Cardiovascular Exam: Tachycardia - Extremities Exam Extremities Exam: Full ROM, Normal Inspection. absent: Pedal Edema - Neurological Exam Neurological Exam: Alert, Awake, Oriented x3 - Psychiatric Exam Psychiatric exam: Normal Affect, Normal Mood - Skin Skin Exam: Dry, Intact, Warm Assessment and Plan - Assessment and Plan (Free Text) Assessment: Hyponatremia; resolving * Nephrology Consult Dr. Preston on board * Na on admission 125; Low osmolarity: 275 Urine osmolality: 288, Urine sodium: 76-->hypovolemic hyponatremia * Patient is on water restriction. * 01/16 CT Head: No acute intracranial hemorrhage. chronic white matter and basal nuclei ischemic changes. generalized volume loss partially empty sella * Patient was fluid restricted patient given her drinking excessive picture--> but patient's values do not reflect SIADH/primary polydipsia-->will start NS 75cc/hr at 11pm * 01/19: Urine osmolality 604 (07:44) 540 (19:34), Urine Sodium 163 (07:44) 94 ( 19:34), Serum Osmolality 272 (6am) * Na 2gm Q8H To Discharge with: Na 2gm Q8H, Fluid intake restriction outpatient as 1.5 L per day Patient's daughter from [place], [place] flew in to see the patient. It was discussed in person with Dr. Green and explained the autoimmune disorders and the need for nephrology, opthalmalogy, and rheumatology follow up outpatient and in clinic. UTI * Urinalysis: Urine WBC 386, Urine RBC 135, 3+ Urine blood, 1+ Protein, <1 squamous epithelial cells * Urine Cx: E. 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 Dewey, patient should be started on Plaquenil as an outpatient after visual field testing by an offset printing pressmen Constipation * patient had bowel movement on 01/20 after enema and 01/21 * Colace 01/19 * Dulcolax today 01/20 Rheumatoid arthritis * Rheumatoid Arthritis panel positive * continue with home med tylenol 650mg PO Q6H PRN pain * Motrin 400mg PO Q8H PRN pain moderate * CCP IgG : 18 Pancytopenia History of Iron Deficiency Anemia Thrombocytopenia * Patient has had GI workup with Dr. Calero/Dr. Peña group * Colonoscopy (12/25/16): non-bleeding internal hemorrhoids * Endoscopy (12/25/16): normal esophagus. 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 Preston Ferrlecit x 10 days, last dose on 01/20 * D/C Heparin * HIT antibodies ordered- negative * Serotonin release assay ordered; awaiting results Reticular Opacities in Lungs * bibasalar rales and wheezing on ausc; denies dyspnea; breathing comfortably on room air; no hx of smoking * CXR: non-specific diffuse reticular opacities in the lungs more prominent at the lung bases and in upper lobes R>L. Mild hyperinflation of the lungs. * 01/16 CT Chest w/o contrast: underlying emphysema with extensive the interstitial fibrosis with more confluent opacities in the lower lung johnson. R/ o infiltrates. B/l lower love cylindrical type bronchiectat changes. Multiple lower love pneumatoceles and small to medium size bled changes. Biapical and bibasilar pleural thickenng with adjacent parenchymal scarring * Patient to continue on prednisone, will start advair after prednisone taper finished, DC with Breo Elipta 25/100 Hematuria * Microscopic hematuria of unclear etiology; glomerular v tract; * check random urine microalbumin, protein and creatinine * f/u urine cytology * RA panel Positive High * SHERRIE 6 Profile positive H * SHERRIE titer 1:160 H * SHERRIE pattern is homogenous Sjogren's Syndrome * Reports dry eyes, dry mouth, in spite of excessive water intake * SHERRIE, SSA and SSB positive * Patient appears to have heliotrope rash-->ordered for aldolase * SSA >8.0 * SSB Ab positive * complement C3 <40 * complement C4 <8.0 Prophylactic measure * GI: protonix 40mg po daily * DVT: heparin 5000u sc Q8H, On hold due to pancytopenia. * Diet: regular diet * con't home meds iron and d/c B12 * PT: patient to be discharged with walker * OT: follow up * PMD: Dr. Dejesus in [place] <Raheem Green - Last Filed: 01/24/17 19:05> Objective - Vital Signs/Intake and Output Vital Signs (last 24 hours): Temp Pulse Resp BP Pulse Ox 98.2 F 120 H 20 149/81 99 01/24/17 17:54 01/24/17 17:54 01/24/17 17:54 01/24/17 17:54 01/24/17 15:13 Intake and Output: 01/24/17 01/24/17 06:59 18:59 Intake Total 590 498 Output Total 800 700 Balance -210 -202 - Medications Medications: Current Medications Acetaminophen (Tylenol 325mg Tab) 650 mg PO Q6 PRN PRN Reason: Pain, Mild (1-3) Last Admin: 01/24/17 04:20 Dose: 650 mg Acetaminophen (Tylenol 325mg Tab) 650 mg PO ONCE PRN PRN Reason: Fever >100.4 F Last Admin: 01/24/17 16:08 Dose: 650 mg Artificial Tears (Artificial Tears) 0 ml OU TID PRN PRN Reason: Dry eyes Last Admin: 01/24/17 14:03 Dose: 2 drop Diphenhydramine HCl (Benadryl) 25 mg PO ONCE PRN PRN Reason: Itching / Pruritus Last Admin: 01/24/17 16:08 Dose: 25 mg Docusate Sodium (Colace) 100 mg PO TID [facility] Last Admin: 01/24/17 17:13 Dose: 100 mg Furosemide (Lasix) 20 mg PO DAILY [facility] Last Admin: 01/24/17 10:45 Dose: 20 mg Sodium Chloride (Sodium Chloride 0.9%) 1,000 mls @ 75 mls/hr IV .[id number] [facility] Last Admin: 01/17/17 12:35 Dose: Not Given Ciprofloxacin (Cipro 400mg/200ml Dsw) 400 mg in 200 mls @ 133 mls/hr IVPB Q12H [facility] Last Admin: 01/24/17 10:42 Dose: 133 mls/hr Ipratropium [place] (Atrovent) 0.5 mg IH RQ6 KILEY Ondansetron HCl (Zofran Inj) 4 mg IVP Q6H PRN PRN Reason: Nausea/Vomiting Pantoprazole Sodium (Protonix Inj) 40 mg IVP DAILY [facility] Last Admin: 01/24/17 10:43 Dose: 40 mg Saccharomyces Boulardii (Florastor) 250 mg PO BID [facility] Last Admin: 01/24/17 17:14 Dose: 250 mg Sodium Chloride (Sodium Chloride Tab) 2 gm PO Q8H [facility] Last Admin: 01/24/17 14:03 Dose: 2 gm - Labs Labs: 01/24/17 09:58 01/24/17 09:58 Attending/Attestation - Attestation I have personally seen and examined this patient.: Yes I have fully participated in the care of the patient.: Yes I have reviewed all pertinent clinical information, including history, physical exam and plan: Yes Notes (Text): 01/24/17 18:56 Patient was seen and examined at 12:15 PM Exam, assessment and plan were thoroughly gone over with the resident. I spoke with [employer] Dr. Preston and he informed me that the patient will also likely need Kidney Biopsy as an outpatient and that he would help facilitate that through the [facility]. For the Hyponatremia: Lasix 20 mg PO 1x/day every other day NaCl 2 gm PO Q8H Fluid restriction to 1.5 liters per day For the UTI: repeat Urine Culture was negative Continue the Cipro for now For the Mixed Connective Tissue Disease: Prednisone 20 mg PO 1x/day for now until Visual Field Test can be performed through the clinic and if ok then Plaquenil Patient will need Rheumatology follow up through the clinic She will need to be on Calcium Citrat 1,200 mg with Vitamin 800 Units in divided doses over 24 hours while patient is on the Prednisone For the Anemia: Patient HgB down to 7.9 today which would account for the tachycardia therefore 1 unit PRBC was ordered. Transfusion did not start till later in the day until patient had the chance to talk over the transfusion with daughter Steven. As long as the HgB/Hct and Na remains stable then Medicine Team will discharge patient on 01/25/17. If NO bowel movement by morning 01/25/17 then Fleet Enema. Please note that the Daughter Steven revealed patient has a long history of constipation. Patient has already been provided with rolling walker. Ashley Harris assures me that the patient has [facility] at [facility] and at [facility]. I explained at length the extensive follow up that will have to occur for the issues mentioned above. Raheem Green D.O.
[2017-01-23 17:47] LABS: RBC URINE 268 /hpf (0-3); URINE BACTERIA RARE (<OCC); URINE BILIRUBIN NEGATIVE (NEGATIVE); URINE BLOOD 3+ (NEGATIVE); URINE COLOR Yellow (YELLOW); URINE GLUCOSE (UA) NORMAL (Normal); URINE KETONE NEGATIVE (NEGATIVE); URINE LEUKOCYTE ESTERASE NEG Leu/uL (Negative); URINE PROTEIN 2+ mg/dL (NEGATIVE); URINE UROBILINOGEN NORMAL mg/dL (0.2-1.0); WBC URINE 17 /hpf (0-5)
--- NOTE | 2017-01-23 19:00 | CP.PCM.PN ---
Subjective - Date & Time of Evaluation Date of Evaluation: 01/23/17 Time of Evaluation: 14:30 - Subjective Subjective: Patient reportedly short of breath; feeling unsteady on her feet; Objective - Vital Signs/Intake and Output Vital Signs (last 24 hours): Temp Pulse Resp BP Pulse Ox 98.0 F 103 H 20 114/74 97 01/23/17 16:41 01/23/17 16:41 01/23/17 16:41 01/23/17 16:41 01/23/17 16:41 Intake and Output: 01/23/17 01/23/17 06:59 18:59 Intake Total 720 700 Output Total 900 300 Balance -180 400 - Medications Medications: Current Medications Acetaminophen (Tylenol 325mg Tab) 650 mg PO Q6 PRN PRN Reason: Pain, Mild (1-3) Last Admin: 01/23/17 11:23 Dose: 650 mg Artificial Tears (Artificial Tears) 0 ml OU TID PRN PRN Reason: Dry eyes Last Admin: 01/23/17 18:25 Dose: 2 drop Docusate Sodium (Colace) 100 mg PO TID [facility] Last Admin: 01/23/17 18:23 Dose: 100 mg Furosemide (Lasix) 20 mg PO DAILY [facility] Last Admin: 01/23/17 13:15 Dose: 20 mg Sodium Chloride (Sodium Chloride 0.9%) 1,000 mls @ 75 mls/hr IV .[id number] [facility] Last Admin: 01/17/17 12:35 Dose: Not Given Ciprofloxacin (Cipro 400mg/200ml Dsw) 400 mg in 200 mls @ 133 mls/hr IVPB Q12H [facility] Last Admin: 01/23/17 10:27 Dose: 133 mls/hr Ondansetron HCl (Zofran Inj) 4 mg IVP Q6H PRN PRN Reason: Nausea/Vomiting Pantoprazole Sodium (Protonix Inj) 40 mg IVP DAILY [facility] Last Admin: 01/23/17 10:15 Dose: 40 mg Potassium Chloride (K-Dur 20 Meq Er Tab) 40 meq PO DAILY [facility] Last Admin: 01/23/17 10:28 Dose: 40 meq Saccharomyces Boulardii (Florastor) 250 mg PO BID [facility] Last Admin: 01/23/17 18:23 Dose: 250 mg Sodium Chloride (Sodium Chloride Tab) 2 gm PO Q8H [facility] Last Admin: 01/23/17 13:15 Dose: 2 gm - Labs Labs: 01/23/17 11:42 01/23/17 11:42 - Constitutional Appears: Non-toxic, No Acute Distress - Head Exam Head Exam: NORMAL INSPECTION - Eye Exam Eye Exam: Normal appearance. absent: Scleral icterus - ENT Exam ENT Exam: Mucous Membranes Moist - Respiratory Exam Respiratory Exam: absent: Respiratory Distress Additional comments: bilateral insp rales; - Cardiovascular Exam Cardiovascular Exam: REGULAR RHYTHM, +S1, +S2 - GI/Abdominal Exam GI & Abdominal Exam: Soft. absent: Distended, Tenderness - Extremities Exam Additional comments: no leg edema; - Neurological Exam Neurological Exam: Alert, Awake - Psychiatric Exam Psychiatric exam: Normal Affect, Normal Mood - Skin Skin Exam: Normal Color. absent: Cyanosis, Warm Assessment and Plan (1) Glomerular disease Assessment & Plan: Repeat direct urine microscopy (done due to significant increase in RBC's on UA ) showing numerous RBC's with many that are classically dysmorphic for an underlying glomerular disease; coupled with increase in proteinuria, patient likely has renal manifestations of her underlying rheumatologic disorder; while renal function is thus far preserved, cannot rule out progressive disease; Mixed connective tissue disease has been associated with glomerular disease; furthermore, this diagnosis can overlap with another rheumatologic diagnosis including SLE; -will need close outpatient f/u; may need renal biopsy -Agree with steroids (on prednisone 20 mg daily) for now but dose may need to be increased Status: Acute (2) Mixed connective tissue disease Assessment & Plan: Presumptive diagnosis; has likely been ongoing since several years; 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 but diagnosis can take time to make; needs close rheumatology f/u; on steroids until she can be started on another disease modifying drug; Status: Acute (3) Hyponatremia Assessment & Plan: Appears consistent with SIADH with high urine osm despite having gotten adequate volume resuscitation; received dose of tolvaptan yesterday with some improvement in serum Na (although not as much as expected); patient also started on salt tabs 2g q8h and being started on lasix 20 mg daily (as she will likely not be able to get tolvaptan as outpatient); needs to continue with 1.5L daily fluid restriction; Status: Acute (4) Hematuria Assessment & Plan: See above; glomerular bleeding, not simply bloom trauma; Status: Acute (5) Tachycardia Status: Acute (6) Anemia Status: Chronic
[2017-01-24 10:09] LABS: BASO % 0.1 % (0.0-2.0); EOS # 0.1 K/uL (0.0-0.7); EOS % 0.8 % (0.0-4.0); HEMATOCRIT 23.4 % (34.0-47.0); LYMPH % 13.6 % (20.0-40.0); MEAN CORPUSCULAR HEMOGLOBIN 27.7 pg (27.0-31.0); MEAN CORPUSCULAR HGB CONC 33.8 g/dL (33.0-37.0); MEAN PLATELET VOLUME 7.4 fL (7.2-11.7); MONO # 0.9 K/uL (0.0-0.8); WHITE BLOOD COUNT 7.1 K/uL (4.8-10.8)
[2017-01-24 10:29] LABS: CHLORIDE 103 mmol/L (98-107)
[2017-01-24 10:30] LABS: POTASSIUM 3.8 mmol/L (3.6-5.2); SODIUM 130 mmol/L (132-148)
[2017-01-24 10:32] LABS: AST/SGOT 62 U/L (14-36); BILIRUBIN,TOTAL 0.5 mg/dL (0.2-1.3); BLOOD UREA NITROGEN 20 mg/dL (7-17); CARBON DIOXIDE 20 mmol/L (22-30); GFR AFRICAN-AMERICAN > 60; TOTAL PROTEIN 7.4 g/dL (6.3-8.3)
[2017-01-24 10:33] LABS: ALKALINE PHOSPHATASE 59 U/L (38-126); ALT/SGPT 33 U/L (9-52); CALCIUM 7.5 mg/dl (8.6-10.4); GLUCOSE,RANDOM 86 mg/dL (65-105)
--- NOTE | 2017-01-24 10:33 | CARD ---
APPROVED REPORT EXAM: Two-dimensional and M-mode echocardiogram with Doppler and color Doppler. Other Information Quality : GoodRhythm : INDICATION Pulmonary Hypertention Chest Pain Palpitations M-Mode DIMENSIONS RVDd0.79 (2.1-3.2cm)Left Atrium (MM)2.46 (2.5-4.0cm) IVSd0.70 (0.7-1.1cm)Aortic Root2.26 (2.2-3.7cm) LVDd4.71 (4.0-5.6cm)Aortic Cusp Exc.1.49 (1.5-2.0cm) PWd0.70 (0.7-1.1cm)FS (%) 52 % LVDs2.28 (2.0-3.8cm)LVEF (%)83 (>50%) Mitral Valve MV E Nbizvvqm45.9cm/sMV A Ebuucqlg796.9cm/sE/A ratio0.7 TDI E/Lateral E'0.0E/Medial E'0.0 Tricuspid Valve TR Peak [id number]/sTR Peak Gr.[id number] LEFT VENTRICLE The left ventricle is normal size. There is mild concentric left ventricular hypertrophy. The left ventricular function is normal. The left ventricular ejection fraction is within the normal range. About 70% No regional wall motion abnormalities noted. Transmitral Doppler flow pattern is Grade I-abnormal relaxation pattern. No left ventricle thrombus noted on this study. There is no ventricular septal defect visualized. There is no left ventricular aneurysm. There is no mass noted in the left ventricle. RIGHT VENTRICLE The right ventricle is normal size. There is normal right ventricular wall thickness. The right ventricular systolic function is normal. ATRIA The left atrium size is normal. The right atrium size is normal. The interatrial septum is intact with no evidence for an atrial septal defect. AORTIC VALVE The aortic valve is thickened, not well seen, but there appers to be mild aortic stenosis visually. THere is no proper doppler assessment of the valve. Recommend repeat study for aortic valve and aortic gradient assessment. No aortic regurgitation is present. There is no aortic valvular stenosis. There is no aortic valvular vegetation. MITRAL VALVE The mitral valve is normal in structure and function. Mild MAC There is no evidence of mitral valve prolapse. There is no mitral valve stenosis. There is no mitral valve regurgitation noted. TRICUSPID VALVE The tricuspid valve is normal in structure and function. There is mild tricuspid valve regurgitation noted. There is no tricuspid valve prolapse or vegetation. There is no tricuspid valve stenosis. PULMONIC VALVE The pulmonary valve is normal in structure and function. There is no pulmonic valvular regurgitation. There is no pulmonic valvular stenosis. GREAT VESSELS The aortic root is normal in size. The ascending aorta is normal in size. The pulmonary artery is normal. The IVC is normal in size and collapses >50% with inspiration. PERICARDIAL EFFUSION The pericardium appears normal. There is no pleural effusion. <Conclusion> Normal LV EF The aortic valve is thickened, not well seen, but there appers to be mild aortic stenosis visually. THere is no proper doppler assessment of the valve. Recommend repeat study for aortic valve and aortic gradient assessment.
[2017-01-24 10:37] LABS: ALB/GLOB RATIO 0.5 (1.0-2.1)
[2017-01-24] MEDS: Ciprofloxacin 400mg/200ml D5W 400 MG/200 ML BAG IVPB SCH ×2 (10:42→22:10)
[2017-01-24] MEDS: Saccharomyces Boulardi 250 mg Cap PO SCH ×2 (10:43→17:14)
[2017-01-24] MEDS: Potassium Chloride 20 mEq/15 ml LIQ UD PO SCH ×2 (10:44→17:14)
[2017-01-24] MEDS: Aritificial Tears (15ml) OU PRN (14:03)
--- NOTE | 2017-01-24 14:05 | CP.PCM.PN ---
Objective - Vital Signs/Intake and Output Vital Signs (last 24 hours): Temp Pulse Resp BP Pulse Ox 97.7 F 114 H 18 113/69 98 01/24/17 07:55 01/24/17 07:55 01/24/17 07:55 01/24/17 10:45 01/24/17 07:55 Intake and Output: 01/24/17 01/24/17 06:59 18:59 Intake Total 590 Output Total 800 Balance -210 - Medications Medications: Current Medications Acetaminophen (Tylenol 325mg Tab) 650 mg PO Q6 PRN PRN Reason: Pain, Mild (1-3) Last Admin: 01/24/17 04:20 Dose: 650 mg Artificial Tears (Artificial Tears) 0 ml OU TID PRN PRN Reason: Dry eyes Last Admin: 01/24/17 14:03 Dose: 2 drop Docusate Sodium (Colace) 100 mg PO TID [facility] Last Admin: 01/24/17 14:03 Dose: 100 mg Furosemide (Lasix) 20 mg PO DAILY [facility] Last Admin: 01/24/17 10:45 Dose: 20 mg Sodium Chloride (Sodium Chloride 0.9%) 1,000 mls @ 75 mls/hr IV .[id number] [facility] Last Admin: 01/17/17 12:35 Dose: Not Given Ciprofloxacin (Cipro 400mg/200ml Dsw) 400 mg in 200 mls @ 133 mls/hr IVPB Q12H [facility] Last Admin: 01/24/17 10:42 Dose: 133 mls/hr Ondansetron HCl (Zofran Inj) 4 mg IVP Q6H PRN PRN Reason: Nausea/Vomiting Pantoprazole Sodium (Protonix Inj) 40 mg IVP DAILY [facility] Last Admin: 01/24/17 10:43 Dose: 40 mg Potassium Chloride (Potassium Chloride Oral Soln) 20 meq PO BID [facility] Stop: 01/24/17 18:01 Last Admin: 01/24/17 10:44 Dose: 20 meq Saccharomyces Boulardii (Florastor) 250 mg PO BID [facility] Last Admin: 01/24/17 10:43 Dose: 250 mg Sodium Chloride (Sodium Chloride Tab) 2 gm PO Q8H [facility] Last Admin: 01/24/17 14:03 Dose: 2 gm - Labs Labs: 01/24/17 09:58 01/24/17 09:58 Assessment and Plan (1) Glomerular disease Status: Acute (2) Mixed connective tissue disease Status: Acute (3) Hyponatremia Status: Acute (4) Hematuria Status: Acute (5) Tachycardia Status: Acute (6) Anemia Status: Chronic
[2017-01-24] MEDS: Ipratropium 0.02% Inhal Soln (0.5 mg/2.5 ml) UD IH SCH ×2 (18:20→19:31)
--- NOTE | 2017-01-24 21:17 | CP.PCM.PN ---
Subjective - Date & Time of Evaluation Date of Evaluation: 01/24/17 Time of Evaluation: 08:00 - Subjective Subjective: Internal Medicine Progress Note for Dr. Dominick Green Patient Seen and examined at bedside. Patient states she's feeling a little bit better. Patient states that she slept well overnight. Patient admitted to having a pain in chest, which was relieved with pain medication. Patient was told she had Hgb 7.9. 1 unit PRBC ordered and administered. Patient denies fever , chills, chest pain currently. Patient hasn't had a bowel movement. recommend drinking prune juice while limiting liquid intake <1.5 L per day. Patient was reminded of drinking <1.5 L per day by nursing and resident at bedside. Objective - Vital Signs/Intake and Output Vital Signs (last 24 hours): Temp Pulse Resp BP Pulse Ox 98.3 F 116 H 20 137/89 99 01/24/17 20:19 01/24/17 20:19 01/24/17 20:19 01/24/17 20:19 01/24/17 15:13 Intake and Output: 01/24/17 01/25/17 18:59 06:59 Intake Total 498 277 Output Total 700 Balance -202 277 - Medications Medications: Current Medications Acetaminophen (Tylenol 325mg Tab) 650 mg PO Q6 PRN PRN Reason: Pain, Mild (1-3) Last Admin: 01/24/17 04:20 Dose: 650 mg Acetaminophen (Tylenol 325mg Tab) 650 mg PO ONCE PRN PRN Reason: Fever >100.4 F Last Admin: 01/24/17 16:08 Dose: 650 mg Artificial Tears (Artificial Tears) 0 ml OU TID PRN PRN Reason: Dry eyes Last Admin: 01/24/17 14:03 Dose: 2 drop Diphenhydramine HCl (Benadryl) 25 mg PO ONCE PRN PRN Reason: Itching / Pruritus Last Admin: 01/24/17 16:08 Dose: 25 mg Docusate Sodium (Colace) 100 mg PO TID [facility] Last Admin: 01/24/17 17:13 Dose: 100 mg Furosemide (Lasix) 20 mg PO DAILY [facility] Last Admin: 01/24/17 10:45 Dose: 20 mg Sodium Chloride (Sodium Chloride 0.9%) 1,000 mls @ 75 mls/hr IV .[id number] [facility] Last Admin: 01/17/17 12:35 Dose: Not Given Ciprofloxacin (Cipro 400mg/200ml Dsw) 400 mg in 200 mls @ 133 mls/hr IVPB Q12H [facility] Last Admin: 01/24/17 10:42 Dose: 133 mls/hr Ipratropium [place] (Atrovent) 0.5 mg IH RQ6 [facility] Last Admin: 01/24/17 19:31 Dose: 0.5 mg Ondansetron HCl (Zofran Inj) 4 mg IVP Q6H PRN PRN Reason: Nausea/Vomiting Pantoprazole Sodium (Protonix Inj) 40 mg IVP DAILY [facility] Last Admin: 01/24/17 10:43 Dose: 40 mg Saccharomyces Boulardii (Florastor) 250 mg PO BID [facility] Last Admin: 01/24/17 17:14 Dose: 250 mg Sodium Chloride (Sodium Chloride Tab) 2 gm PO Q8H [facility] Last Admin: 01/24/17 14:03 Dose: 2 gm - Labs Labs: 01/24/17 09:58 01/24/17 09:58 - Constitutional Appears: Non-toxic - Head Exam Head Exam: NORMAL INSPECTION - Eye Exam Eye Exam: EOMI Additional comments: heliotrope rash - ENT Exam ENT Exam: Mucous Membranes Moist - Respiratory Exam Respiratory Exam: NORMAL BREATHING PATTERN. absent: Accessory Muscle Use, Respiratory Distress - Cardiovascular Exam Cardiovascular Exam: Tachycardia. absent: Bradycardia - GI/Abdominal Exam GI & Abdominal Exam: Soft. absent: Tenderness - Extremities Exam Extremities Exam: Full ROM. absent: Pedal Edema - Neurological Exam Neurological Exam: Alert, Awake, Oriented x3 - Psychiatric Exam Psychiatric exam: Normal Affect, Normal Mood - Skin Skin Exam: Dry, Intact, Normal Color, Warm Assessment and Plan - Assessment and Plan (Free Text) Assessment: Hyponatremia; resolving * Nephrology Consult Dr. Preston on board * Na on admission 125; Low osmolarity: 275 Urine osmolality: 288, Urine sodium: 76-->hypovolemic hyponatremia * Patient is on water restriction. * 01/16 CT Head: No acute intracranial hemorrhage. chronic white matter and basal nuclei ischemic changes. generalized volume loss partially empty sella * Patient was fluid restricted patient given her drinking excessive picture--> but patient's values do not reflect SIADH/primary polydipsia-->will start NS 75cc/hr at 11pm * 01/19: Urine osmolality 604 (07:44) 540 (19:34), Urine Sodium 163 (07:44) 94 ( 19:34), Serum Osmolality 272 (6am) * Na 2gm Q8H * Fluid restrict <1.5L per day To Discharge with: instructions to have Na 2gm Q8H, Fluid intake restriction outpatient as 1.5 L per day Patient's daughter from [place], [place] flew in to see the patient. It was discussed in person with Dr. Green and explained the autoimmune disorders and the need for nephrology, opthalmalogy, and rheumatology follow up outpatient and in clinic. UTI * Urinalysis: Urine WBC 386, Urine RBC 135, 3+ Urine blood, 1+ Protein, <1 squamous epithelial cells * Urine Cx: E. 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 Dewey, patient should be started on Plaquenil as an outpatient after visual field testing by an bark grinder Per Constipation, per Daughter Steven * patient had bowel movement on 01/20 after enema and 01/21 * Colace 01/19 * Dulcolax today 01/20 * if no BM, order Fleet Enema Rheumatoid arthritis * Rheumatoid Arthritis panel positive * continue with home med tylenol 650mg PO Q6H PRN pain * Motrin 400mg PO Q8H PRN pain moderate * CCP IgG : 18 Pancytopenia History of Iron Deficiency Anemia Thrombocytopenia * Patient has had GI workup with Dr. Calero/Dr. Peña group * Colonoscopy (12/25/16): non-bleeding internal hemorrhoids * Endoscopy (12/25/16): normal esophagus. 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 Mohan Potterit x 10 days, last dose on 01/20 * D/C Heparin * HIT antibodies ordered- negative * Serotonin release assay ordered; awaiting results Reticular Opacities in Lungs * bibasalar rales and wheezing on ausc; denies dyspnea; breathing comfortably on room air; no hx of smoking * CXR: non-specific diffuse reticular opacities in the lungs more prominent at the lung bases and in upper lobes R>L. Mild hyperinflation of the lungs. * 01/16 CT Chest w/o contrast: underlying emphysema with extensive the interstitial fibrosis with more confluent opacities in the lower lung johnson. R/ o infiltrates. B/l lower love cylindrical type bronchiectat changes. Multiple lower love pneumatoceles and small to medium size bled changes. Biapical and bibasilar pleural thickenng with adjacent parenchymal scarring * Prednisone 20 mg POQD * Patient and daughters were told to continue Prednisone until Visual Field Test is performed through the clinic. Normal Visual Field Test is normal then patient can be placed for Plaquenil * DC with Breo Elipta 25/100 Hematuria * Microscopic hematuria of unclear etiology; glomerular v tract; * check random urine microalbumin, protein and creatinine * f/u urine cytology * RA panel Positive High * SHERRIE 6 Profile positive H * SHERRIE titer 1:160 H * SHERRIE pattern is homogenous Sjogren's Syndrome * Reports dry eyes, dry mouth, in spite of excessive water intake * SHERRIE, SSA and SSB positive * Patient appears to have heliotrope rash-->ordered for aldolase * SSA >8.0 * SSB Ab positive * complement C3 <40 * complement C4 <8.0 Prophylactic measure * GI: protonix 40mg po daily * DVT: heparin 5000u sc Q8H, On hold due to pancytopenia. * Diet: regular diet * con't home meds iron and d/c B12 * PT: patient to be discharged with walker * OT: follow up * Patient is provided with rolling walker. * PMD: Dr. Dejesus in [place] * Thu care: Thu Care at [facility] and at [facility] per Daughter Steven Oviedo Arely, DO PGY1
[2017-01-25] MEDS: Ipratropium 0.02% Inhal Soln (0.5 mg/2.5 ml) UD IH SCH ×4 (01:17→19:21)
[2017-01-25 09:07] VITALS: RESP 20
[2017-01-25] MEDS: Ciprofloxacin 400mg/200ml D5W 400 MG/200 ML BAG IVPB SCH (10:16)
[2017-01-25] MEDS: Aritificial Tears (15ml) OU PRN (10:16)
[2017-01-25] MEDS: Saccharomyces Boulardi 250 mg Cap PO SCH (10:17)
[2017-01-25 12:10] LABS: BASO % 0.3 % (0.0-2.0); EOS # 0.1 K/uL (0.0-0.7); HEMATOCRIT 28.8 % (34.0-47.0); LYMPH # 0.4 K/uL (1.0-4.3); LYMPH % 6.5 % (20.0-40.0); MEAN CELL VOLUME 82.5 fL (81.0-99.0); MEAN CORPUSCULAR HEMOGLOBIN 27.9 pg (27.0-31.0); MEAN CORPUSCULAR HGB CONC 33.8 g/dL (33.0-37.0); MEAN PLATELET VOLUME 7.6 fL (7.2-11.7); MONO # 0.3 K/uL (0.0-0.8); PLATELET COUNT 130 K/uL (130-400); RED CELL DISTRIBUTION WIDTH 18.1 % (11.5-14.5); WHITE BLOOD COUNT 5.8 K/uL (4.8-10.8)
[2017-01-25 12:26] LABS: CHLORIDE 101 mmol/L (98-107); POTASSIUM 4.2 mmol/L (3.6-5.2); SODIUM 128 mmol/L (132-148)
[2017-01-25 12:28] LABS: BILIRUBIN,TOTAL 0.5 mg/dL (0.2-1.3); CARBON DIOXIDE 19 mmol/L (22-30); GFR AFRICAN-AMERICAN > 60
[2017-01-25 12:29] LABS: ALB/GLOB RATIO 0.5 (1.0-2.1); ALKALINE PHOSPHATASE 60 U/L (38-126); ALT/SGPT 37 U/L (9-52); AST/SGOT 59 U/L (14-36); BLOOD UREA NITROGEN 26 mg/dL (7-17); CALCIUM 7.4 mg/dl (8.6-10.4); GLUCOSE,RANDOM 130 mg/dL (65-105); TOTAL PROTEIN 7.3 g/dL (6.3-8.3)
[2017-01-25 13:37] LABS: NEUTROPHIL 90 % (50-75); TOTAL CELLS COUNTED 100
--- NOTE | 2017-01-25 14:14 | CP.PCM.DIS ---
Provider - Provider Date of Admission: 01/16/17 13:43 Attending physician: Raheem Green MD Primary care physician: Dr. Kenia Green Consults: Dr. Preston Nephrology Dr. Moss Pulmonology Time Spent in preparation of Discharge (in minutes): 35 Diagnosis - Discharge Diagnosis (1) Sjogren's disease Status: Chronic (2) Scleroderma Status: Chronic (3) Hyponatremia Status: Acute Comment: patient to follow outpatient with Dr. Preston. <1.5 L per day fluid intake. 1gm Sodium tablets (4) Mixed connective tissue disease Status: Chronic Hospital Course - Lab Results Lab Results: Micro Results 01/21/17 16:28 Urine,Clean Catch Urine Culture - Final No Growth (<1,000 CFU/ML) 01/16/17 21:30 Blood Blood Culture - Final NO GROWTH AFTER 5 DAYS 01/16/17 21:30 Blood Gram Stain - Final TEST NOT PERFORMED 01/16/17 22:00 Blood Blood Culture - Final NO GROWTH AFTER 5 DAYS 01/16/17 22:00 Blood Gram Stain - Final TEST NOT PERFORMED 01/19/17 08:31 Urine,Catheterized Urine Culture - Final Escherichia Coli 01/16/17 22:26 Urine,Catheterized Urine Culture - Final Escherichia Coli 01/15/17 15:25 Urine Urine Culture - Final No Growth (<1,000 CFU/ML) Most Recent Lab Values WBC 5.8 K/uL (4.8-10.8) 01/25/17 11:53 RBC 3.49 Mil/uL (3.80-5.20) L 01/25/17 11:53 Hgb 9.7 g/dL (11.0-16.0) L 01/25/17 11:53 Hct 28.8 % (34.0-47.0) L 01/25/17 11:53 MCV 82.5 fL (81.0-99.0) 01/25/17 11:53 MCH 27.9 pg (27.0-31.0) 01/25/17 11:53 MCHC 33.8 g/dL (33.0-37.0) 01/25/17 11:53 RDW 18.1 % (11.5-14.5) H 01/25/17 11:53 Plt Count 130 K/uL (130-400) 01/25/17 11:53 MPV 7.6 fL (7.2-11.7) 01/25/17 11:53 Neut % (Auto) 87.2 % (50.0-75.0) H 01/25/17 11:53 Lymph % (Auto) 6.5 % (20.0-40.0) L 01/25/17 11:53 [place] % (Auto) 5.0 % (0.0-10.0) 01/25/17 11:53 Eos % (Auto) 1.0 % (0.0-4.0) 01/25/17 11:53 Baso % (Auto) 0.3 % (0.0-2.0) 01/25/17 11:53 Neut # 5.1 K/uL (1.8-7.0) 01/25/17 11:53 Lymph # 0.4 K/uL (1.0-4.3) L 01/25/17 11:53 [place]imer # 0.3 K/uL (0.0-0.8) 01/25/17 11:53 Eos # 0.1 K/uL (0.0-0.7) 01/25/17 11:53 Baso # 0.0 K/uL (0.0-0.2) 01/25/17 11:53 Neutrophils % (Manual) 90 % (50-75) H 01/25/17 11:53 Band Neutrophils % 1 % (0-2) 01/22/17 06:20 Lymphocytes % (Manual) 6 % (20-40) L 01/25/17 11:53 Monocytes % (Manual) 4 % (0-10) 01/25/17 11:53 Eosinophils % (Manual) 2 % (0-4) 01/22/17 06:20 Myelocytes % 1 % (0-0) H 01/21/17 08:16 Smudge Cells Present 01/15/17 16:24 Platelet Estimate Normal (NORMAL) 01/25/17 11:53 Large Platelets Present 01/15/17 16:24 Polychromasia Slight 01/25/17 11:53 Hypochromasia (manual) Slight 01/25/17 11:53 Poikilocytosis (manual Slight 01/25/17 11:53 Basophilic Stippling Slight 01/23/17 11:42 Anisocytosis (manual) Slight 01/25/17 11:53 Microcytosis (manual) Slight 01/21/17 08:16 Macrocytosis (manual) Slight 01/21/17 08:16 Tear Drop Cells Slight 01/21/17 08:16 Ovalocytes Slight 01/25/17 11:53 ESR 110 mm/hr (0-20) H 01/20/17 11:46 Retic Count 1.1 % (0.5-1.5) 01/17/17 04:39 Hep-Yu Thrombocytopen Negative (Negative) 01/16/17 19:39 pO2 25 mm/Hg (30-55) L 01/15/17 16:31 VBG pH 7.35 (7.32-7.43) 01/15/17 16:31 VBG pCO2 39 mmHg (40-60) L 01/15/17 16:31 VBG HCO3 20.4 mmol/L 01/15/17 16:31 VBG Total CO2 22.7 mmol/L (22-28) 01/15/17 16:31 VBG O2 Sat (Calc) 44.7 % (40-65) 01/15/17 16:31 VBG Base Excess -3.8 mmol/L (0.0-2.0) L 01/15/17 16:31 VBG Potassium 4.7 mmol/L (3.6-5.2) 01/15/17 16:31 Sodium 126.0 mmol/l (132-148) L 01/15/17 16:31 Chloride 100.0 mmol/L (98-107) 01/15/17 16:31 Glucose 74 mg/dl (65-105) 01/15/17 16:31 Lactate 1.5 mmol/L (0.7-2.1) 01/15/17 16:31 Sodium 128 mmol/L (132-148) L 01/25/17 11:56 Potassium 4.2 mmol/L (3.6-5.2) 01/25/17 11:56 Chloride 101 mmol/L (98-107) 01/25/17 11:56 Carbon Dioxide 19 mmol/L (22-30) L 01/25/17 11:56 Anion Gap 12 (10-20) 01/25/17 11:56 BUN 26 mg/dL (7-17) H 01/25/17 11:56 Creatinine 0.8 mg/dL (0.7-1.2) 01/25/17 11:56 Est GFR ( Amer) > 60 01/25/17 11:56 Est GFR (Non-Af Amer) > 60 01/25/17 11:56 Random Glucose 130 mg/dL (65-105) H 01/25/17 11:56 Serum Osmolality 275 mosm/kg (272-300) 01/20/17 06:23 Uric Acid 3.3 mg/dL (2.2-7.5) 01/17/17 04:39 Calcium 7.4 mg/dl (8.6-10.4) L 01/25/17 11:56 Phosphorus 3.2 mg/dL (2.5-4.5) 01/23/17 11:42 Magnesium 1.6 mg/dL (1.6-2.3) 01/23/17 11:42 Iron 145 ug/dL (37-170) 01/17/17 19:33 TIBC 202 ug/dL (250-450) L 01/17/17 19:33 % Saturation 72 (20-55) H 01/17/17 19:33 Ferritin 900.0 ng/mL 01/17/17 04:39 Total Bilirubin 0.5 mg/dL (0.2-1.3) 01/25/17 11:56 AST 59 U/L (14-36) H 01/25/17 11:56 ALT 37 U/L (9-52) 01/25/17 11:56 Alkaline Phosphatase 60 U/L (38-126) 01/25/17 11:56 Total Creatine Kinase < 20 U/L (30-135) L 01/22/17 06:20 CK-MB (Mass) 0.45 ng/mL (0.0-3.38) 01/22/17 06:20 Troponin I < 0.0120 ng/mL (0.00-0.120) 01/15/17 16:24 Troponin I, Quant < 0.0120 ng/mL (0.00-0.120) 01/22/17 06:20 C-React Prot High Sens > 15.00 mg/L (1.00-3.00) H 01/16/17 12:50 Total Protein 7.3 g/dL (6.3-8.3) 01/25/17 11:56 Albumin 2.4 g/dL (3.5-5.0) L 01/25/17 11:56 Globulin 4.9 gm/dL (2.2-3.9) H 01/25/17 11:56 Albumin/Globulin Ratio 0.5 (1.0-2.1) L 01/25/17 11:56 Lipase 272 U/L (23-300) 01/15/17 16:24 Aldolase 5.6 U/L (<=8.1) 01/16/17 19:39 UF Heparin Interp Indeterminate (Negative) H 01/16/17 19:39 Vitamin B12 > 1000 pg/mL (239-931) H 01/17/17 04:39 Folate 7.1 ng/mL 01/17/17 04:39 TSH 3rd Generation 4.26 mIU/L (0.46-4.68) 01/17/17 04:39 Prolactin 10.2 ng/mL (3.0-18.9) 01/17/17 04:39 Cortisol AM Sample 12.8 ug/dL (4.46-22.7) 01/16/17 06:53 ACTH 48 pg/mL (6-50) 01/16/17 06:53 Venous Blood Potassium 4.7 mmol/L (3.6-5.2) 01/15/17 16:31 Urine Color Yellow (YELLOW) 01/23/17 15:04 Urine Clarity Clear (Clear) 01/23/17 15:04 Urine pH 6.0 (5.0-8.0) 01/23/17 15:04 Ur Specific [place] 1.011 (1.003-1.030) 01/23/17 15:04 Urine Protein 2+ mg/dL (NEGATIVE) H 01/23/17 15:04 Urine Glucose (UA) Normal mg/dL (Normal) 01/23/17 15:04 Urine Ketones Negative mg/dL (NEGATIVE) 01/23/17 15:04 Urine Blood 3+ (NEGATIVE) H 01/23/17 15:04 Urine Nitrate Negative (NEGATIVE) 01/23/17 15:04 Urine Bilirubin Negative (NEGATIVE) 01/23/17 15:04 Urine Urobilinogen Normal mg/dL (0.2-1.0) 01/23/17 15:04 Ur Leukocyte Esterase Neg Jose/uL (Negative) 01/23/17 15:04 Urine WBC (Auto) 17 /hpf (0-5) H 01/23/17 15:04 Urine RBC (Auto) 268 /hpf (0-3) H 01/23/17 15:04 Ur Squamous Epith Cells < 1 /hpf (0-5) 01/23/17 15:04 Urine Bacteria Rare (<OCC) 01/23/17 15:04 Hyaline Casts 3-5 /lpf (0-2) H 01/23/17 15:04 Urine Osmolality 437 mosm/kg (300-1000) 01/23/17 10:58 Ur Random Creatinine 36.2 mg/dL 01/23/17 10:58 U Random Total Protein 83.0 mg/dL (0.0-12.0) H 01/23/17 10:58 Ur Random Sodium 136 mmol/L 01/23/17 10:58 Ur Random Potassium 14.1 mmol/L 01/16/17 07:49 Urine Microalbumin 353.4 mg/L (0.0-16.6) H 01/23/17 11:40 Urine Chloride 80 mmol/L (32-290) 01/16/17 10:54 Stool Occult Blood Negative (NEGATIVE) 01/20/17 21:43 Rheum Arthritis Panel Positive (NEGATIVE) H 01/17/17 19:33 Rheumatoid Factor IgA >100 U (<=6) H 01/17/17 19:33 Rheumatoid Factor IgM >100 U (<=6) H 01/17/17 19:33 Cycl Citrul Peptide IgG 16 Units (<20) 01/20/17 11:46 SHERRIE 6 Profile Positive (NEGATIVE) H 01/16/17 12:50 SHERRIE Titer 1:160 H 01/16/17 12:50 SHERRIE Pattern Homogenous H 01/16/17 12:50 SS-A Antibody >8.0 AI (<1.0) H 01/16/17 14:07 SS-B Ab Interp Positive (Negative) H 01/16/17 14:07 SS-B Antibody <1.0 AI (<1.0) 01/16/17 14:07 SS-B Ab Interp Negative (Negative) 01/16/17 14:07 BREADING MACHINE TENDER Antibody 1.6 AI (<1.0) H 01/20/17 11:46 BREADING MACHINE TENDER Antibody Interp Positive (Negative) H 01/20/17 11:46 Scl-70 Antibody 1.5 AI (<1.0) H 01/20/17 11:46 Scl-70 Interpretation Positive (Negative) H 01/20/17 11:46 Heparin-induced Plt Ab Negative (Negative) 01/16/17 19:39 MAI UFH Low Dose 0.1 94 % Release 01/16/17 19:39 MAI UFH Low Dose 0.5 91 % Release 01/16/17 19:39 MAI UFH High Dose 100 74 % Release 01/16/17 19:39 Complement C3 < 40.0 mg/dL (88.0-165.0) L 01/20/17 11:46 Complement C4 < 8.0 mg/dL (14.0-44.0) L 01/20/17 11:46 Hepatitis A IgM Ab Negative (NEGATIVE) 01/21/17 08:16 Hep Bs Antigen Negative (NEGATIVE) 01/21/17 08:16 Hep B Core IgM Ab Negative (NEGATIVE) 01/21/17 08:16 Hepatitis C Antibody Negative (NEGATIVE) 01/21/17 08:16 HIV 1&2 Antibody Screen Negative (NEGATIVE) 01/21/17 08:16 Influenza Typ A,B (EIA) Negative for flu a/b (NEGATIVE) 01/15/17 16:55 Ur L.pneumophila Ag Negative (NEGATIVE) 01/19/17 10:16 TB Test (QFT) Nil 0.09 IU/mL 01/20/17 11:46 TB Test Mitogen - Nil 0.02 IU/mL 01/20/17 11:46 TB Test TB - Nil <0.00 IU/mL 01/20/17 11:46 TB Test (QFT) Indeterminate (Negative) H 01/20/17 11:46 Blood Type O POSITIVE 01/24/17 14:41 Antibody Screen Negative 01/24/17 14:41 - Hospital Course Hospital Course: Na on admission 125; likely hypotonic hyponatremia due to polydipsia vs renal losses vs siadh hypovolemic hyponatremia possible due to dry oral mucosa, eyes sunken, BP 97/60 , NH 106 NS 1 L given in ED Nephrology Consult: Dr. Preston Consult : 81 yo F with a PMHx of Rheumatoid Arthritis presented to the ED for fatigue and weakness for the past 1 week. At baseline the patient is able to ambulate however in the past week she has felt too weak to get out of bed and when she does, she feels imbalanced. Associated symptoms include nausea and dry mouth. She denies vomiting or diarrhea. She says she routinely drinks a lot of water and currently drinks 5 12oz cups of water every day. She weighs 86 lbs. At baseline she urinates about 8-9x a day which she attributes to her water intake. She denied all other prompts on review of systems. She says she has a good appetite but admits to a 6lb weight loss in the last 3 weeks. Hospital course 01/15: Patient was admitted and found to have hypnatremia. Urine Osm, Serum Osm, and Electrolytes were ordered Patient with hyponatremia. Check urine osmolalities and electrolytes. May need to restrict or give fluids depending on results. Also with history of rheumatoid arthritis. Symptomatic treatment. Iron studies, B12, and folate were drawn for evaluation of anemia It was noted by night attending that patient is similar to prior admission. 01/15 16:31VBG done Sodium 126 negative for flu a/b 01/16: 20:00 Serum Osm 287 CRP >15.00 SSA SSB 01/17: Rheumatoid Arthritis Panel Positive Rheum Factor IgA and IgM >100 CCP IgG 18 00:38 Na 11 04:39 Na 124 08:55 Na 125 11:29 Na 121 14:43 Na 122 17:33 Na 131 19:33 Na 131 04:39 Serum Osm 264 11:29 Serum Osm 264 14:43 Serum Osm 262 19:33 Serum Osm 278 19:33 Iron 145 19:33 TIBC 202 19:33 % Saturation 72 04:39 Iron 190 04:39 %Saturation 11 04:39 Ferritin 900 Total Bilirubin 0.3 AST/ALT 59/35 ALP 67 Vitamin B12 >1000 Folate 7.1 TSH 4.26 Prolactin 10.2 10: Na 131 10/2: Na 125 Serum Osm 275 negative for Urine Legionella pneumophila Ag 01/20: 06:23 130 Serum Osm: 275 TB test Quantiferon 0.09 TB test mitogen 0.02 TB test TB <0.00 TB test QFT Indeterminate H CCP IgG 16 BREADING MACHINE TENDER Antibody positive, 1.6 Scl 70 ab 1.5 Scl 70 Psitive complement C3 <40.0 Complement C4 <8.0 01/21: 08:16 Na 130 hepatitis A, B, C and HIV 1&2 negative 01/22: Patient complained of chst pain overnight, Troponin ordered negative 06:20 Na 124 16:58 Na 122 Troponin I < 0.0120 01/23: Na 126 01/24: Patient's hemoglobin was found to be 7.9. 1 unit PRBC ordered Na 130 01/25: Patient seen and examined at bedside. Hemoglobin 9.7 Na 128 Patient was seen and examined at 1:55 PM 01/25/17. 81 year old female who was admitted on 01/15/17 for fatigue and weakness. She was treated for Hyponatremia, UTI, Anemia and Mixed Connective Tissue Disease. ROS: NO chest pain NO palpitations SOB is better Dry mouth. "I never make any spit". Difficulty swallowing because of dryness in mouth NO abdominal pain NO bowel movement (but then she is not eating much because of the dryness in mouth. Daughter Steven explained 01/24/17 that patient has a long history of not eating much and not having bowel movements for long periods of time) NO burning/pain with urination NO abdominal pain NO new changes in vision NO new changes in hearing NO headaches Currently complains of muscle pain in the trapezius area Exam: General: NAD HEENT: NCA, EOMI, PERRLA, NO cervical lymphadenopathy, NO thyromegaly, NO pharyngeal erythema/exudate, Nasal Turbinates are dry and without edema/erythema , Oral Mucosa and tongue Cardio: NS1 and NS2, NO M/R/G, NO JVD Respiratory: Bilateral Mid to lower lung field faint inspiratory crackles (this is unchanged) GI: BSx4, Soft, NT, ND, NO HSM, NO guarding/rebound tenderness Ext: Pulses are strong and equal, Capillary Refill is 2 seconds, NO edema. Neuro: CN II through XII are grossly intact Assessments: 1). Hyponatremia: fluid restrict 1.5 liters per day. NaCl 2gm 1 tablet PO 3x/ day. Lasix 20 mg 1 tablet PO Q2Days. 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 UTI:E. coli on urine culture 01/16/17 and 01/19/17. Repeat urine culture was negative. Patient has been treated for 5 days with Ciprofloxacin. 3). Mixed Connective Tissue Disease: Sjogren's and Scleroderma SHERRIE +Homogeneous SS A + and SS B + RF + but Anti CCP Ab negative Scl-70 positive BREADING MACHINE TENDER Ab + Quantiferon Indeterminate Spoke with Mash Tub Cooker Dr. Matta about the above test and likely fits pattern of Mixed Connective Tissue Disease Prednisone 20 mg PO 1x/day for now until Visual Field Test can be performed through the clinic and if ok then Plaquenil Patient will need Rheumatology follow up through the clinic She will need to be on Calcium Citrate 1,200 mg with Vitamin 800 Units in divided doses over 24 hours while patient is on the Prednisone 4). Hx Constipation Patient does not eat much and has a long history of this Colace 100 mg PO TID Had large bowel movements after Fleet Enema late this week and again today Will give another dose of Enema prior to discharge today Recommend Ensure 3x/day along with Prune Juice 8 ounces daily 5). Thrombocytopenia/Anemia likely secondary to Iron Deficiency Had 1 unit of PRBC on 01/24/17 and HgB/Hct are stable Ferrous Sulfate 325 mg PO 2x/day will be given upon discharge Platelets are stable 6). Reticular Opacities Likely related to Mixed Connective Tissue Disease Breo Ellipta Rx upon discharge Will need Pulmonology with PFTs as outpatient 7). Hematuria Likely related to Mixed Connective Tissue Disease Health Workers Dr. Preston spoke with me on 01/24/17 and he recommended outpatient Renal Biopsy which he would help arrange. Patient is stable for discharge Extensive conversation with Patient's Daughter Steven 01/23/17 and 01/24/17 who explained that the patient has been feeling weak and fatigued for years and she states that she was evaluated by physicians in [place] (patient is only visiting the [facility] currently) but no one could tell them why. I explained to Steven that the patient likely had Mixed Connective Tissue Disease for some time now. I explained to colton the extensive follow up (as documented below in the discharge instructions) that will need to occur for the patient through the [facility]. I confirmed with Steven that patient has [employer] Insurance at [facility] and at [facility]. - Date & Time of H&P Date of H&P: 01/25/17 Time of H&P: 14:14 Discharge Exam - Head Exam Head Exam: NORMAL INSPECTION - Eye Exam Eye Exam: EOMI - ENT Exam ENT Exam: Mucous Membranes Moist - Neck Exam Neck exam: Full Rom - Respiratory Exam Respiratory Exam: Decreased Breath Sounds, Rhonchi, NORMAL BREATHING PATTERN. absent: Chest Wall Tenderness - Cardiovascular Exam Cardiovascular Exam: REGULAR RHYTHM, +S1, +S2. absent: Bradycardia, Tachycardia - GI/Abdominal Exam GI & Abdominal Exam: Soft. absent: Tenderness - Extremities Exam Extremities exam: normal capillary refill, pedal pulses present - Neurological Exam Neurological exam: CN II-XII Intact, Reflexes Normal - Psychiatric Exam Psychiatric exam: Normal Affect, Normal Mood - Skin Skin Exam: Dry, Intact, Normal Color, Warm Discharge Plan - Discharge Medications Prescriptions: Ferrous Sulfate [Feosol] 325 mg PO BID #60 tab Fluticasone/Vilanterol [Breo Ellipta 100-25 Mcg INH] 1 inh PO DAILY #1 blst.w.dev Furosemide [Lasix] 20 mg PO DAILY #20 tab Omeprazole 20 mg PO DAILY #30 capsule. predniSONE [predniSONE Tab] 20 mg PO DAILY 30 Days tab Sodium Chloride [Sodium Chloride Tab] 2 gm PO Q8H #90 tab - Follow Up Plan Condition: STABLE Disposition: HOME/ ROUTINE Instructions: Iron Supplements (By mouth), Furosemide (By mouth), Prednisone ( By mouth), Omeprazole (By mouth), Fluticasone/Vilanterol (By breathing), Sodium Chloride (By mouth), Hyponatremia (DC) Additional Instructions: 1). Please have the following prescriptions filled at your pharmacy: Sodium Chloride 2 grams, 1 tablet by mouth every 3x/day (7 AM, 1 PM, 7 PM), Disp #90, NO refills Furosemide 20 mg, 1 tablet by mouth every other day, Disp #20, NO refills Prednisone 20 mg, 1 tablet by mouth every day (7 AM), Disp #30, NO refills Breo Ellipta 100 mcg/25 mcg per actuation, 1 PO INH 1x/day (9 AM), Disp #1, NO refills Ferrous Sulfate 325 mg, 1 tablet by mouth 2x/day (breakfast and dinner), Disp # 60, NO refills Omeprazole 20 mg, 1 tablet by mouth 1x/day (7 AM), Disp #30, NO refills 2). Please go to the store [employer] or [employer] and pickling machine operator the following. You do not need a prescription: Calcium Citrate with Vitamin D: You must get at least 1,200 mg of Calcium Citrate with 800 Units of Vitamin D per day but NOT all at once. This must be taken in divided doses. 3). You stated that you had [employer]. Therefore please make sure that you schedule follow up with [facility]. Phone number is [phone]. It is located at [facility] Floor [address], [address] in [place], [place]. This clinic will be your primary care physician, provide you with prescriptions for your medication refills, and help you to coordinate your health care. Through the clinic you will need the following: Rheumatology Referral for your history of Mixed Connective Tissue Disease Health Workers Referral to see Dr. Preston for your history of Hyponatremia and for setting up a Kidney Biopsy Opthalmologist Referral to see an eye doctor to make sure that your eyes are ok before starting new medication to treat the Mixed Connective Tissue Disease Cloth Coverer Referral to examine your lung volumes 4). You were provided with a Rolling Walker. Please continue to use this to help you walk safely. 5). You can NOT drink more than 1.5 liters of water per day as you have low sodium. 6). Purchase Ensure Nutrition Shakes and take with meals 3 times per day. 7). Have 1 Bannana per day. 8). Please do NOT delay in following the above instructions as failure to do so will have serious consequence to your health. 9). Please take care and be well. Raheem Green D.O. Referrals: Steven Moss MD [Staff Provider] - Jordan Dewey MD [Staff Provider] - Vel Preston MD [Staff Provider] - Raheem Green MD [Staff Provider] -
--- NOTE | 2017-01-25 14:15 | CP.PCM.PN ---
Subjective - Date & Time of Evaluation Date of Evaluation: 01/25/17 Time of Evaluation: 13:55 - Subjective Subjective: Hospitalist Progress Note Patient was seen and examined at 1:55 PM 01/25/17. 81 year old female who was admitted on 01/15/17 for fatigue and weakness. She was treated for Hyponatremia, UTI, Anemia and Mixed Connective Tissue Disease. ROS: NO chest pain NO palpitations SOB is better Dry mouth. "I never make any spit". Difficulty swallowing because of dryness in mouth NO abdominal pain NO bowel movement (but then she is not eating much because of the dryness in mouth. Daughter Steven explained 01/24/17 that patient has a long history of not eating much and not having bowel movements for long periods of time) NO burning/pain with urination NO abdominal pain NO new changes in vision NO new changes in hearing NO headaches Currently complains of muscle pain in the trapezius area Exam: General: NAD HEENT: NCA, EOMI, PERRLA, NO cervical lymphadenopathy, NO thyromegaly, NO pharyngeal erythema/exudate, Nasal Turbinates are dry and without edema/erythema , Oral Mucosa and tongue Cardio: NS1 and NS2, NO M/R/G, NO JVD Respiratory: Bilateral Mid to lower lung field faint inspiratory crackles (this is unchanged) GI: BSx4, Soft, NT, ND, NO HSM, NO guarding/rebound tenderness Ext: Pulses are strong and equal, Capillary Refill is 2 seconds, NO edema. Neuro: CN II through XII are grossly intact Assessments: 1). Hyponatremia: fluid restrict 1.5 liters per day. NaCl 2gm 1 tablet PO 3x/ day. Lasix 20 mg 1 tablet PO Q2Days. 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 UTI:E. coli on urine culture 01/16/17 and 01/19/17. Repeat urine culture was negative. Patient has been treated for 5 days with Ciprofloxacin. 3). 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 Matta about the above test and likely fits pattern of Mixed Connective Tissue Disease Prednisone 20 mg PO 1x/day for now until Visual Field Test can be performed through the clinic and if ok then Plaquenil Patient will need Rheumatology follow up through the clinic She will need to be on Calcium Citrate 1,200 mg with Vitamin 800 Units in divided doses over 24 hours while patient is on the Prednisone 4). Hx Constipation Patient does not eat much and has a long history of this Colace 100 mg PO TID Had large bowel movements after Fleet Enema late this week and again today Will give another dose of Enema prior to discharge today Recommend Ensure 3x/day along with Prune Juice 8 ounces daily 5). Thrombocytopenia/Anemia likely secondary to Iron Deficiency Had 1 unit of PRBC on 01/24/17 and HgB/Hct are stable Ferrous Sulfate 325 mg PO 2x/day will be given upon discharge Platelets are stable 6). Reticular Opacities Likely related to Mixed Connective Tissue Disease Breo Ellipta Rx upon discharge Will need Pulmonology with PFTs as outpatient 7). Hematuria Likely related to Mixed Connective Tissue Disease Melter Caster Dr. Preston spoke with me on 01/24/17 and he recommended outpatient Renal Biopsy which he would help arrange. Patient is stable for discharge Extensive conversation with Patient's Daughter Steven 01/23/17 and 01/24/17 who explained that the patient has been feeling weak and fatigued for years and she states that she was evaluated by physicians in [place] (patient is only visiting the [facility] currently) but no one could tell them why. I explained to Steven that the patient likely had Mixed Connective Tissue Disease for some time now. I explained to colton the extensive follow up (as documented below in the discharge instructions) that will need to occur for the patient through the [facility]. I confirmed with Steven that patient has [employer] Insurance at [facility] and at [facility]. The following instructions will need to be provided to patient upon discharge: 1). Please have the following prescriptions filled at your pharmacy: Sodium Chloride 2 grams, 1 tablet by mouth every 3x/day (7 AM, 1 PM, 7 PM), Disp #90, NO refills Furosemide 20 mg, 1 tablet by mouth every other day, Disp #20, NO refills Prednisone 20 mg, 1 tablet by mouth every day (7 AM), Disp #30, NO refills Breo Ellipta 25 mcg/100 mcg per actuation, 1 PO INH 1x/day (9 AM), Disp #1, NO refills Ferrous Sulfate 325 mg, 1 tablet by mouth 2x/day (breakfast and dinner), Disp # 60, NO refills Omeprazole 20 mg, 1 tablet by mouth 1x/day (7 AM), Disp #30, NO refills 2). Please go to the store [employer] or [employer] and poultry picker the following. You do not need a prescription: Calcium Citrate with Vitamin D: You must get at least 1,200 mg of Calcium Citrate with 800 Units of Vitamin D per day but NOT all at once. This must be taken in divided doses. 3). You stated that you had [email or web address] Insurance. Therefore please make sure that you schedule follow up with [facility]. Phone number is [phone]. It is located at [facility] [address], [address] in [place], [place]. This clinic will be your primary care physician, provide you with prescriptions for your medication refills, and help you to coordinate your health care. Through the clinic you will need the following: Rheumatology Referral for your history of Mixed Connective Tissue Disease [facility] Referral to see Dr. Preston for your history of Hyponatremia and for setting up a Kidney Biopsy Opthalmologist Referral to see an eye doctor to make sure that your eyes are ok before starting new medication to treat the Mixed Connective Tissue Disease [facility] Referral to examine your lung volumes 4). You were provided with a Rolling Walker. Please continue to use this to help you walk safely. 5). You can NOT drink more than 1.5 liters of water per day as you have low sodium. 6). Purchase Ensure Nutrition Shakes and take with meals 3 times per day. 7). Have 1 Bannana per day. 8). Please do NOT delay in following the above instructions as failure to do so will have serious consequence to your health. 9). Please take care and be well. Raheem Green D.O. Objective - Vital Signs/Intake and Output Vital Signs (last 24 hours): Temp Pulse Resp BP Pulse Ox 97.8 F 120 H 20 151/89 H 100 01/25/17 07:00 01/25/17 07:00 01/25/17 07:00 01/25/17 10:17 01/25/17 07:00 Intake and Output: 01/25/17 01/25/17 06:59 18:59 Intake Total 716 Output Total 875 Balance -159 - Medications Medications: Current Medications Acetaminophen (Tylenol 325mg Tab) 650 mg PO Q6 PRN PRN Reason: Pain, Mild (1-3) Last Admin: 01/24/17 04:20 Dose: 650 mg Acetaminophen (Tylenol 325mg Tab) 650 mg PO ONCE PRN PRN Reason: Fever >100.4 F Last Admin: 01/24/17 16:08 Dose: 650 mg Artificial Tears (Artificial Tears) 0 ml OU TID PRN PRN Reason: Dry eyes Last Admin: 01/25/17 10:16 Dose: 1 drop Diphenhydramine HCl (Benadryl) 25 mg PO ONCE PRN PRN Reason: Itching / Pruritus Last Admin: 01/24/17 16:08 Dose: 25 mg Docusate Sodium (Colace) 100 mg PO TID [facility] Last Admin: 01/25/17 13:32 Dose: 100 mg Furosemide (Lasix) 20 mg PO DAILY [facility] Last Admin: 01/25/17 10:17 Dose: 20 mg Sodium Chloride (Sodium Chloride 0.9%) 1,000 mls @ 75 mls/hr IV .[id number] [facility] Last Admin: 01/17/17 12:35 Dose: Not Given Ciprofloxacin (Cipro 400mg/200ml Dsw) 400 mg in 200 mls @ 133 mls/hr IVPB Q12H [facility] Last Admin: 01/25/17 10:16 Dose: 133 mls/hr Ipratropium [place] (Atrovent) 0.5 mg IH RQ6 [facility] Last Admin: 01/25/17 07:25 Dose: 0.5 mg Ondansetron HCl (Zofran Inj) 4 mg IVP Q6H PRN PRN Reason: Nausea/Vomiting Pantoprazole Sodium (Protonix Inj) 40 mg IVP DAILY [facility] Last Admin: 01/25/17 10:18 Dose: 40 mg Saccharomyces Boulardii (Florastor) 250 mg PO BID [facility] Last Admin: 01/25/17 10:17 Dose: 250 mg Sodium Chloride (Sodium Chloride Tab) 2 gm PO Q8H [facility] Last Admin: 01/25/17 13:32 Dose: 2 gm - Labs Labs: 01/25/17 11:53 01/25/17 11:56
[2017-01-25] MEDS ORDERED: Pneumococcal 23-Valent Vaccine IM ONE (16:26)
[2017-01-25] MEDS ORDERED: Influenza Vaccine 60 mcg/0.5 mL SYR (4YR UP) IM ONE (16:28)
[2017-01-25 16:36] VITALS: BP 126/74; PULSE 130; TEMP 98.1; O2SAT 95
[2017-01-26 09:13] LABS: Interpretation Negative (Negative)
== END 2017-01-25 21:00 | disposition home or self-care (01) | DRG 644 ==
LOC: C.ER 14:29 → C.9E 18:06 → C.6T 20:42 → OBSVTOIN 01-16 13:43
PROVIDERS: ADMIT Hospitalist; ATTEND Family Medicine
PROC: 30233N1 Transfusion of Nonautologous Red Blood Cells into Peripheral Vein, Percutaneous Approach (ICD-10-PCS; principal; 2017-01-16)
DX: E22.2 Syndrome of inappropriate secretion of antidiuretic hormone (principal); D61.818 Other pancytopenia; M34.9 Systemic sclerosis, unspecified; M35.1 Other overlap syndromes; N05.9 Unspecified nephritic syndrome with unspecified morphologic changes; M35.00 Sjogren syndrome, unspecified; E86.1 Hypovolemia; N39.0 Urinary tract infection, site not specified; D50.9 Iron deficiency anemia, unspecified; K29.50 Unspecified chronic gastritis without bleeding; K59.00 Constipation, unspecified; M06.9 Rheumatoid arthritis, unspecified; M81.0 Age-related osteoporosis without current pathological fracture; R07.9 Chest pain, unspecified; R26.2 Difficulty in walking, not elsewhere classified; B96.20 Unspecified Escherichia coli [E. coli] as the cause of diseases classified elsewhere; R31.29 Other microscopic hematuria